=== PATIENT | female | born 1990 | race Caucasian/White ===

== ENCOUNTER 2020-10-03 14:45 | Emergency (ER) | payer OTHER, SELFPAY ==
--- NOTE | ~2020-10-03 | XR_ITS ---
EXAMINATION: XR chest 1V portable DATE: 10/03/2020 15:30 INDICATION: Fever, shortness of breath, body aches and headache TECHNIQUE: One view COMPARISON: Chest radiograph dated 03/19/2017 FINDINGS: Unchanged minimal biapical pleural-parenchymal scarring. The lungs remain otherwise clear with no foc al airspace opacities, pulmonary edema, pleural effusion or pneumothorax. The cardiomediastinal silho uette is normal. Visualized bones and soft tissues are unremarkable. IMPRESSION: 1. No acute cardiopulmonary disease. Reviewed, dictated and finalized at location H. ETING COMMUNICATIONS SPECIALIST
[2020-10-03 14:52] VITALS: BP 94/66; PULSE 102; RESP 18; TEMP 36.3; O2SAT 100
[2020-10-03] MEDS: ONDANSETRON INJ 4 MG/2 ML VIAL IV PUSH (15:27)
[2020-10-03] MEDS: SODIUM CHLORIDE 0.9% IV 1,000 ML 999 ML IV CONT (15:27)
--- NOTE | 2020-10-03 15:41 | ED.FEVER ---
HPI - Fever General Chief Complaint: Fever Stated Complaint: Fever, vomiting, REN, body aches Time Seen by Provider: 10/03/20 14:51 History of Present Illness HPI Narrative: Patient is a 29-year-old female with history of HIV who is viral load is undetectable that presents to the ER with fever. Reports over the last week she has had some runny nose over the last 3 days she has developed fever. As high as 100.9 ?F. Mild cough but no shortness of breath. She has had some nausea as well as some diarrhea. No known sick contacts. No chest pain or chest pressure. No positional dizziness. Reports compliance with his home medications. Related Data Allergies Allergy/AdvReac Type Severity Reaction Status Date / Time oxycodone Allergy Intermediate HIVES/RASH/ Verified 10/03/20 14:55 ITCHY Review of Systems Review of Systems: All systems reviewed & are unremarkable except as noted in HPI and below Constitutional: Constitutional: Reports chills, Reports fatigue and Reports fever(s) ENT: Reports nasal congestion and Denies sore throat Cardiovascular: Cardiovascular: Denies chest pain, Denies rapid heart rate and Denies radiating jaw, neck or arm pain Respiratory: Respiratory: Reports cough, Denies dyspnea and Denies wheezing Gastrointestinal: Gastrointestinal: Denies abdominal pain, Denies constipation, Reports diarrhea, Reports nausea and Reports vomiting Genitourinary: Genitourinary: Denies nocturia and Denies dysuria PMF Past Medical History Medical History (Updated 10/03/20 @ 16:48 by Yuri Romo MD) Ectopic HIV (human immunodeficiency virus infection) Surgical History Surgical History (Updated 10/03/20 @ 15:46 by Yuri Romo MD) H/O tubal ligation Social History Social History (Updated 10/03/20 @ 15:46 by Yuri Romo MD) Smoking status: Current every day smoker Gender identity (if verbalized by the patient): Female Exam Narrative: Exam Narrative: GENERAL: Well-appearing, underweight, and in no acute distress. HEAD: Normocephalic, atraumatic. CHEST: Clear to auscultation. No respiratory distress. HEART: Tachycardic and regular. Normal peripheral pulses. ABDOMEN: Soft, nontender, nondistended. EXTREMITIES: Normal range of motion. No edema. SKIN: Warm, dry, no rash. NEURO: Alert and oriented x3. PSYCH: Normal mood and affect. Course CROP SUPERVISOR/PA Physician Supervision Unremarkable evaluation. We will Covid swab to assess for fever. Vital Signs Vital signs: Vital Signs Temperature 97.3 F L 10/03/20 14:52 Pulse Rate 102 H 10/03/20 14:52 Respiratory Rate 18 10/03/20 14:52 Blood Pressure 94/66 L 10/03/20 14:52 Pulse Oximetry 100 10/03/20 14:52 Temperature 97.3 F L 10/03/20 14:52 Pulse Rate 102 H 10/03/20 14:52 Respiratory Rate 18 10/03/20 14:52 Blood Pressure 94/66 L 10/03/20 14:52 Pulse Oximetry 100 10/03/20 14:52 MDM - Fever Lab Data Result diagrams: 10/03/20 15:34 10/03/20 15:34 Labs: Lab Results 10/03/20 10/03/20 10/03/20 Range/Units 15:34 15:34 15:34 WBC 8.4 (4.5-10.0) K/mm3 RBC 3.69 L (4.2-5.4) M/mm3 Hgb 12.2 (12.0-15.0) g/dL Hct 35.2 L (37.0-47.0) % MCV 95.4 (80-100) fl MCH 33.1 (26-34) pg MCHC 34.7 (32-36) g/dl RDW 12.4 (11.5-14.5) % Plt Count 283 (150-375) k/mm3 MPV 9.0 (7.4-10.4) fl Immature Gran % (Auto) 0.2 (0-0.5) % Neut % (Auto) 66.1 (45.5-73.1) % Lymph % (Auto) 26.1 (18.3-44.2) % [place] % (Auto) 5.8 (2.6-8.5) % Eos % (Auto) 1.4 (0-4.4) % Baso % (Auto) 0.4 (0.2-1.2) % Lymph # (Auto) 2.19 (0.9-3.2) K/mm3 [place] # (Auto) 0.5 (0.1-0.6) K/mm3 Eos # (Auto) 0.1 (0-0.3) K/mm3 Baso # (Auto) 0.0 (0.0-0.1) K/mm3 Abs Immat Gran (auto) 0.02 (0.00-0.031) K/mm3 Absolute Neuts (auto) 5.5 (1.3-6.7) K/mm3 Absolute Nucleated RBC 0.0 (0.0-0.012) K/mm3 Nucleated RBC % 0.0 (0.0-0.2)
[2020-10-03 15:43] LABS: Basophils Percent Auto 0.4 % (0.2-1.2); Eosinophils Absolute Auto 0.1 K/mm3 (0-0.3); Eosinophils Percent Auto 1.4 % (0-4.4); Hematocrit 35.2 % (37.0-47.0); Hemoglobin 12.2 g/dL (12.0-15.0); Immature Granulocyte Absolute 0.02 K/mm3 (0.00-0.031); Immature Granulocyte Percent A 0.2 % (0-0.5); Lymphocytes Absolute Auto 2.19 K/mm3 (0.9-3.2); Lymphocytes Percent Auto 26.1 % (18.3-44.2); Mean Corpuscular HGB Conc 34.7 g/dl (32-36); Mean Corpuscular Hemoglobin 33.1 pg (26-34); Mean Corpuscular Volume 95.4 fl (80-100); Monocytes Absolute Auto 0.5 K/mm3 (0.1-0.6); Monocytes Percent Auto 5.8 % (2.6-8.5); Neutrophils Absolute Auto 5.5 K/mm3 (1.3-6.7); Neutrophils Percent Auto 66.1 % (45.5-73.1); Platelet Count Result 283 k/mm3 (150-375); Red Blood Count 3.69 M/mm3 (4.2-5.4); Red Cell Distribution Width 12.4 % (11.5-14.5); White Blood Count 8.4 K/mm3 (4.5-10.0)
[2020-10-03 15:58] LABS: Alanine Aminotransferase 22 U/L (4-35); Albumin Level 4.1 g/dL (3.5-5.1); Alkaline Phosphatase 92 U/L (38-126); Anion Gap 11 mmol/L (8-16); Aspartate Amino Transferase 23 U/L (14-36); Bilirubin,Total 0.5 mg/dL (0.2-1.3); Blood Urea Nitrogen 7 mg/dL (7-17); Carbon Dioxide 18 mmol/L (22-30); Chloride 109 mmol/L (98-107); Estimated CRCL calculation 83 ml/min; Estimated Glomerular Filt Rate > 60; Glucose 104 mg/dL (65-105); Sodium 138 mmol/L (137-145)
[2020-10-03 16:02] LABS: D Dimer 0.27 ug/mL (<0.48)
[2020-10-03 16:03] LABS: Potassium 3.5 mmol/L (3.4-5.0)
--- NOTE | 2020-10-03 16:03 | PC.NURSE ---
patient resting on stretcher. all tests resulted. waiting for further orders from MD vs disposition.
[2020-10-03 16:25] LABS: CRP < 0.5 mg/dL (<1.0)
[2020-10-03 16:57] VITALS: BP 91/49; PULSE 65; RESP 18; TEMP 36.4; O2SAT 100
[2020-10-05 17:05] LABS: SARS-CoV-2 RNA PCR Negative
== END 2020-10-03 16:59 | disposition home or self-care (01) ==
PROVIDERS: Emergency Provider Emergency Medicine; PCP Physician Assistant
DX: B34.9 Viral infection, unspecified (principal); Z20.828 Contact with and (suspected) exposure to other viral communicable diseases; Z21 Asymptomatic human immunodeficiency virus [HIV] infection status; F17.200 Nicotine dependence, unspecified, uncomplicated
CPT/HCPCS: 36415; 71045; 80053; 85025; 85380; 86140; 87635; 96361; 96374; 99284; C9803; J2405; J7030; U0003

== ENCOUNTER 2020-10-07 14:25 | Emergency (ER) | payer OTHER, SELFPAY ==
--- NOTE | ~2020-10-07 | XR_ITS ---
EXAMINATION: XR chest 1V portable DATE: 10/07/2020 15:43 INDICATION: Shortness of breath. TECHNIQUE: A single frontal view of the chest was obtained. COMPARISON: Chest single view 10/03/2020 FINDINGS: There is mild scarring at the lung apices. No pleural effusion or pneumothorax. The heart s ize is normal. IMPRESSION: 1. Mild scarring at the lung apices. Reviewed, dictated and finalized at location A. NESS NURSE
[2020-10-07 14:39] VITALS: BP 94/64; PULSE 69; RESP 18; TEMP 37.1; O2SAT 99
--- NOTE | 2020-10-07 15:18 | ED.URI ---
HPI - URI/Sore Throat General Chief Complaint: Upper Respiratory Infection Stated Complaint: covid with difficulty breathing Time Seen by Provider: 10/07/20 15:03 History of Present Illness HPI Narrative: 29 yo female w/ h/o HIV presents to the ED for SOB. She reports that she has had all of the symptoms of COVID-19 for the past week. She has had pleuritic chest pain, SOB, fever, and nausea. She was seen here 4 days ago and had completely negative work-up including negative COVID test. Last HIV labs were undetectable and she has been taking all of he medications. Related Data Home Medications Medication Instructions Recorded Confirmed lleotonivt-eqohrygteqmix-rlzh tablet 10/07/20 cyclobenzaprine mg 10/07/20 darunavir ethanolate [Prezista] mg 10/07/20 emtricitabine-tenofovir (TDF) tablet 10/07/20 [Truvada] fluoxetine mg 10/07/20 ibuprofen 10/07/20 ritonavir PO 10/07/20 topiramate [Topamax] 25 mg PO DAILY 10/07/20 tramadol mg 10/07/20 Allergies Allergy/AdvReac Type Severity Reaction Status Date / Time oxycodone Allergy Intermediate HIVES/RASH/ Verified 10/07/20 14:42 ITCHY Review of Systems Review of Systems: All systems reviewed & are unremarkable except as noted in HPI and below Constitutional: Constitutional: Reports fatigue, Reports fever(s) and Reports weakness Cardiovascular: Cardiovascular: Reports chest pain Respiratory: Respiratory: Reports cough and Reports dyspnea Gastrointestinal: Gastrointestinal: Reports nausea Genitourinary: Genitourinary: Denies hematuria and Denies dysuria Neurologic: Reports dizziness and Reports weakness PMFSH Past Medical History Medical History Ectopic HIV (human immunodeficiency virus infection) Surgical History Surgical History H/O tubal ligation Social History Social History Smoking status: Current every day smoker Gender identity (if verbalized by the patient): Female Exam Const: General: alert and ill appearing chronically Nutritional Appearance: thin Orientation/consciousness: patient oriented x3 HENMT: Mouth: Yes dry mucous membranes Eyes: Pupils: Equal, round and reactive pupils present Chest: Chest palpation & inspection: normal inspection of the chest Resp: Effort & Inspection: normal respiratory effort Auscultation: clear to auscultation bilaterally Cardio: Rate: regular rate Rhythm: regular rhythm GI: GI Palp: Yes Soft to palpation and No Tenderness to palpation present (GI) Skin: General skin exam: normal color Neuro: General: patient oriented x3, moves all extremities and no focal motor deficits Speech: normal speech Extrem: General: normal to inspection Psych: Affect: Anxious affect present Course Vital Signs Vital signs: Vital Signs Temperature 37.1 C 10/07/20 14:39 Pulse Rate 69 10/07/20 14:39 Respiratory Rate 18 10/07/20 14:39 Blood Pressure 94/64 L 10/07/20 14:39 Pulse Oximetry 99 10/07/20 14:39 Temperature 37.1 C 10/07/20 14:39 Pulse Rate 63 10/07/20 15:59 Respiratory Rate 17 10/07/20 15:59 Blood Pressure 91/64 L 10/07/20 15:59 Pulse Oximetry 100 10/07/20 15:59 MDM - URI/Sore Throat MDM Narrative Medical decision making narrative: She is very thin and appears mildly dehydrated. Lungs are clear and x-ray is negative. I will try PO medications and oral hydration. BP is mildly low. It sounds like this is not out of the ordinary for her and she has n symptoms related to it. Medical Records Attestation: I reviewed the patient's medical records. Imaging Data Radiologist's impression: ITS Impressions Chest X-Ray 10/07/20 15:44 IMPRESSION: 1. Mild scarring at the lung apices. Discharge Plan Discharge Clinical Impression: Upper respiratory infection
[2020-10-07] MEDS: ONDANSETRON HCL ODT 4 MG TABLET PO (15:33)
[2020-10-07] MEDS: KETOROLAC (*BKC) 60 MG/2 ML VIAL IM (15:33)
[2020-10-07 15:59] VITALS: BP 91/64; PULSE 63; RESP 17; O2SAT 100
== END 2020-10-07 17:14 | disposition home or self-care (01) ==
PROVIDERS: Emergency Provider Emergency Medicine; PCP Physician Assistant
DX: J06.9 Acute upper respiratory infection, unspecified (principal); Z21 Asymptomatic human immunodeficiency virus [HIV] infection status; F17.200 Nicotine dependence, unspecified, uncomplicated
CPT/HCPCS: 71045; 96372; 99283; A9270; J1885

== ENCOUNTER 2021-04-23 12:02 | Emergency (ER) | payer OTHER, SELFPAY ==
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
[2021-04-23 12:09] VITALS: BP 104/70; PULSE 77; RESP 18; TEMP 36.8; O2SAT 100
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
[2021-04-23] MEDS: KETOROLAC (*BKC) 60 MG/2 ML VIAL 30 MG IM (13:25)
[2021-04-23 13:56] LABS: Add Urine Microscopic? YES; Appearance Urine Clear (Clear); Bilirubin Urine Negative (Negative); Blood Urine Negative (Negative); Color Urine Yellow (Yellow); Glucose Urine UA Negative (Negative); Ketones Urine Negative (Negative); Leukocyte Esterase Ur Negative LEU/UL (Negative); Nitrate Urine Positive (Negative); Protein Urine Negative (Negative); Specific Grav Ur 1.005 (1.001-1.035); Squamous Epithelial Cell Urine Few /hpf (Few); Urobilinogen Urine Negative mg/dL (<2.0); WBC Urine 0-3 /hpf
[2021-04-23 14:29] VITALS: BP 106/63; PULSE 74; RESP 15; O2SAT 100
== END 2021-04-23 14:30 | disposition home or self-care (01) ==
PROVIDERS: Emergency Provider Emergency Medicine
DX: S39.92XA Unspecified injury of lower back, initial encounter (principal); N39.0 Urinary tract infection, site not specified; Y04.0XXA Assault by unarmed brawl or fight, initial encounter
CPT/HCPCS: 72100; 72220; 81001; 96372; 99283; J1885

== ENCOUNTER 2021-11-20 18:27 | Emergency (ER) | payer OTHER, SELFPAY ==
[2021-11-20 18:29] VITALS: BP 111/64; PULSE 104; RESP 20; TEMP 36.6; O2SAT 100
[2021-11-20 19:31] VITALS: BP 112/70; PULSE 106; RESP 18; O2SAT 99
--- NOTE | 2021-11-20 20:13 | ED.GENADULT ---
HPI - General Adult General Chief complaint: Shortness of Breath/Dyspnea Stated complaint: sob, fever Time Seen by Provider: 11/20/21 20:04 Source: patient Mode of arrival: ambulatory Limitations: no limitations History of Present Illness HPI narrative: Patient is a 31-year-old female who presents to emergency department for evaluation flu symptoms that began today she has had 1 COVID-vaccine she denies any vomiting or diarrhea presents nondistressed nose fever chills congestion rhinorrhea cough some loose stools denies vomiting. Notes sick contact with COVID-19 exposure Related Data Home Medications Medication Instructions Recorded Confirmed lhupsrvmhu-mkbjvkngzkfmz-avfx tablet 10/07/20 cyclobenzaprine mg 10/07/20 darunavir ethanolate [Prezista] mg 10/07/20 emtricitabine-tenofovir (TDF) tablet 10/07/20 [Truvada] fluoxetine mg 10/07/20 ibuprofen 10/07/20 ritonavir PO 10/07/20 topiramate [Topamax] 25 mg PO DAILY 10/07/20 tramadol mg 10/07/20 Allergies Allergy/AdvReac Type Severity Reaction Status Date / Time oxycodone Allergy Intermediate HIVES/RASH/ Verified 04/23/21 12:16 ITCHY Review of Systems Review of Systems: All systems reviewed & are unremarkable except as noted in HPI and below PMFSH Past Medical History Medical History Ectopic HIV (human immunodeficiency virus infection) Surgical History Surgical History H/O tubal ligation Social History Social History Smoking status: Current every day smoker Gender identity (if verbalized by the patient): Female Exam Narrative: GENERAL: Well-appearing, well-nourished, and in no acute distress. HEAD: Normocephalic, atraumatic. EYES: PERRLA and EOMI. ENT: Nares clear, no rhinorrhea or epistaxis. Mucous membranes moist. CHEST: Clear to auscultation. No respiratory distress. No wheezes rales or rhonchi HEART: Regular rate and rhythm. No murmur heard. EXTREMITIES: Normal range of motion. No edema. SKIN: Warm, dry, no rash. NEURO: No focal deficits. Alert and oriented x3. PSYCH: Normal mood and affect. Course Course Emergency Course: Patient presents nondistressed of likely COVID-19 diagnosis given exposures will be tested discharged home provided with outpatient follow-up afebrile nontoxic-appearing nondistressed no emesis ABCs and vital signs intact stable no hypoxemia no pneumonia did on exam Vital Signs Vital signs: Vital Signs Temperature 97.9 F 11/20/21 18:29 Pulse Rate 104 H 11/20/21 18:29 Respiratory Rate 20 11/20/21 18:29 Blood Pressure 111/64 11/20/21 18:29 Pulse Oximetry 100 11/20/21 18:29 Temperature 97.9 F 11/20/21 18:29 Pulse Rate 106 H 11/20/21 19:31 Respiratory Rate 18 11/20/21 19:31 Blood Pressure 112/70 11/20/21 19:31 Pulse Oximetry 99 11/20/21 19:31 Medical Decision Making MDM Narrative Medical decision making narrative: Patient with likely COVID-19 diagnosis given the exposure she will be tested for COVID-19 and influenza discharged home with outpatient follow-up given indications for return Vital Signs Vital Signs: Vital Signs Temperature 97.9 F 11/20/21 18:29 Pulse Rate 104 H 11/20/21 18:29 Respiratory Rate 20 11/20/21 18:29 Blood Pressure 111/64 11/20/21 18:29 Pulse Oximetry 100 11/20/21 18:29 Temperature 97.9 F 11/20/21 18:29 Pulse Rate 106 H 11/20/21 19:31 Respiratory Rate 18 11/20/21 19:31 Blood Pressure 112/70 11/20/21 19:31 Pulse Oximetry 99 11/20/21 19:31 Discharge Plan Discharge Clinical Impression: Person under investigation for COVID-19 Patient Disposition: Home, Self-Care Condition: Stable Instructions: Antibiotic Form, COVID-19 (Coronavirus Disease 2019) (ED) Additional Instructions: Follow-up with primary care tomorrow t
[2021-11-20 20:45] VITALS: BP 122/66; PULSE 78; RESP 18; O2SAT 99
[2021-11-21 20:41] LABS: SARS-CoV-2 RNA PCR Positive
== END 2021-11-20 20:47 | disposition home or self-care (01) ==
PROVIDERS: Emergency Medicine Emergency Medical Services; Emergency Provider Emergency Medicine; PCP Physician Assistant
DX: U07.1 COVID-19 (principal); F17.210 Nicotine dependence, cigarettes, uncomplicated; Z21 Asymptomatic human immunodeficiency virus [HIV] infection status
CPT/HCPCS: 87804; 99283; C9803; U0003; U0005

== ENCOUNTER 2022-04-03 23:46 | Emergency (ER) | payer OTHER, SELFPAY ==
--- NOTE | ~2022-04-03 | XR_ITS ---
EXAMINATION: XR shoulder RT min 2V DATE: 04/04/2022 01:10 INDICATION: Right shoulder pain. TECHNIQUE: 4 views of right shoulder were obtained. COMPARISON: None. FINDINGS: Bone alignment is normal. No fracture. Joint spaces are well maintained. IMPRESSION: 1. Normal right shoulder. Reviewed, dictated and finalized at location A. IMPRESSION: 1. Normal right shoulder.
[2022-04-03 23:46] VITALS: BP 121/76; PULSE 62; RESP 18; TEMP 35.7; O2SAT 100
[2022-04-04] VITALS (21 sets, daily range): BP systolic 96–117; BP diastolic 69–83; PULSE 71–72; RESP 16–18; O2SAT 96–100
--- NOTE | 2022-04-04 00:41 | ED.UPPEXIN ---
HPI - Extremity Injury (Upper) General Chief Complaint: Extremity Injury, Upper Stated Complaint: right shoulder pain Time Seen by Provider: 04/03/22 23:53 Source: patient Mode of arrival: ambulatory Limitations: no limitations History of Present Illness HPI narrative: This is a 31 year old female that presents to the ER for acute on chronic right shoulder pain present today. Reports she felt a pop in the shoulder and the pain has worsened. No certain injury or trauma. Reports she currently is seeing an pathology specialist for her shoulder and has done therapy. Denies decreased ROM or numbness. Related Data Home Medications Medication Instructions Recorded Confirmed cqsopuypgt-jgwbglaodtziz-njrmxxhg tablet 10/07/20 50 mg-325 mg-40 mg tablet cyclobenzaprine 5 mg tablet mg 10/07/20 darunavir ethanolate 800 mg tablet mg 10/07/20 (Prezista) emtricitabine 200 mg-tenofovir tablet 10/07/20 disoproxil fumarate 300 mg tablet (Truvada) fluoxetine 40 mg capsule mg 10/07/20 ibuprofen 800 mg tablet 10/07/20 ritonavir 100 mg tablet PO 10/07/20 topiramate 25 mg sprinkle capsule 25 mg PO DAILY 10/07/20 (Topamax) tramadol 50 mg tablet mg 10/07/20 Allergies Allergy/AdvReac Type Severity Reaction Status Date / Time oxycodone Allergy Intermediate HIVES/RASH/ Verified 04/23/21 12:16 ITCHY Review of Systems Review of Systems: CONSTITUTIONAL: Denies fever MUSCULOSKELETAL: Reports joint pain, and myalgia. NEUROLOGIC: Denies numbness All systems reviewed & are unremarkable except as noted in HPI and below PMFSH Past Medical History Medical History Ectopic HIV (human immunodeficiency virus infection) Surgical History Surgical History H/O tubal ligation Social History Social History Smoking status: Current every day smoker Gender identity (if verbalized by the patient): Female Exam Narrative: GENERAL: Well-appearing, well-nourished, and in no acute distress. HEAD: Normocephalic, atraumatic. EYES: EOMI. CHEST: No respiratory distress. HEART: Regular rate EXTREMITIES: Normal range of motion. No edema, erythema or obvious deformity. Normal radial pulse. Normal sensation SKIN: Warm, dry, no rash. NEURO: No focal deficits. Alert and oriented x3. PSYCH: Normal mood and affect Course Vital Signs Vital signs: Vital Signs Temperature 96.2 F L 04/03/22 23:46 Pulse Rate 62 04/03/22 23:46 Respiratory Rate 18 04/03/22 23:46 Blood Pressure 121/76 04/03/22 23:46 Pulse Oximetry 100 04/03/22 23:46 Oxygen Delivery Room Air 04/03/22 23:46 Temperature 96.2 F L 04/03/22 23:46 Pulse Rate 71 04/04/22 01:00 Respiratory Rate 18 04/04/22 01:00 Blood Pressure 109/74 04/04/22 01:00 Pulse Oximetry 100 04/04/22 01:00 Oxygen Delivery Room Air 04/03/22 23:46 MDM - Extremity Injury (Upper) Imaging Data Radiologist's impression: Right shoulder x-ray: No acute fracture or dislocations Critical Care Time Critical Care Time Critical Care Time: No Discharge Plan Discharge Clinical Impression: Chronic pain in right shoulder Patient Disposition: Home, Self-Care Condition: Stable Instructions: Shoulder Pain (ED) Additional Instructions: Return to the emergency department if you experience fever, redness and swelling of your arm, numbness, or any other symptoms that are concerning to you Rest. Ice to the area. Jllq-ktx-xhisbsu pain medication as needed. Prescribed pain medication as needed Follow-up with your orthopedic doctor Prescriptions: No Action fluoxetine 40 mg capsule ibuprofen 800 mg tablet tramadol 50 mg tablet fkutavbptp-dbilipjnnbctd-fbql 50-325-40 mg tablet topiramate [Topamax] 25 mg Capsule, Sprinkle
[2022-04-04] MEDS: diazePAM INJ (*CRX) 10 MG/2 ML SYRINGE 5 MG IM (01:05)
[2022-04-04] MEDS: ACETAMINOPHEN 500 MG TABLET 1000 MG PO (01:05)
[2022-04-04] MEDS: traMADol HCL (*CRX) 50 MG TABLET PO (02:14)
== END 2022-04-04 03:50 | disposition home or self-care (01) ==
PROVIDERS: Emergency Provider Emergency Medicine; PCP Physician Assistant
DX: M25.511 Pain in right shoulder (principal); G89.29 Other chronic pain; Z21 Asymptomatic human immunodeficiency virus [HIV] infection status; F17.200 Nicotine dependence, unspecified, uncomplicated
CPT/HCPCS: 73030; 96372; 99283; A4565; A9270; J3360

== ENCOUNTER 2022-05-14 16:48 | Emergency (ER) | payer OTHER, SELFPAY ==
--- NOTE | ~2022-05-14 | XR_ITS ---
EXAMINATION: XR chest 1V portable INDICATION: Cough TECHNIQUE: Portable AP chest at 1712 hours COMPARISON: 10/07/2020 FINDINGS: The lungs are free of acute opacities. No pleural effusion or pneumothorax. The cardiomedia stinal silhouette is normal. The visualized bones and soft tissues are unremarkable. IMPRESSION: 1. No acute cardiopulmonary abnormality. Reviewed, dictated and finalized at location B.
[2022-05-14 16:52] VITALS: BP 111/75; PULSE 92; RESP 20; TEMP 37.1; O2SAT 99
--- NOTE | 2022-05-14 17:05 | ED.UPPEXIN ---
HPI - Extremity Injury (Upper) General Chief Complaint: Upper Respiratory Infection Stated Complaint: cough, headache, chills History of Present Illness HPI narrative: 31-year-old female presented the emergency room for evaluation of I am not feeling well . Patient is complaining of body aches, subjective fever, postnasal drip, sinus congestion and a nonproductive cough. Patient states symptoms suddenly started on yesterday. Related Data Home Medications Medication Instructions Recorded Confirmed ootzpmeeyc-kszydraklwxwy-tcenrdph tablet 10/07/20 50 mg-325 mg-40 mg tablet cyclobenzaprine 5 mg tablet mg 10/07/20 darunavir ethanolate 800 mg tablet mg 10/07/20 (Prezista) emtricitabine 200 mg-tenofovir tablet 10/07/20 disoproxil fumarate 300 mg tablet (Truvada) fluoxetine 40 mg capsule mg 10/07/20 ibuprofen 800 mg tablet 10/07/20 ritonavir 100 mg tablet PO 10/07/20 topiramate 25 mg sprinkle capsule 25 mg PO DAILY 10/07/20 (Topamax) tramadol 50 mg tablet mg 10/07/20 Allergies Allergy/AdvReac Type Severity Reaction Status Date / Time oxycodone Allergy Intermediate HIVES/RASH/ Verified 04/23/21 12:16 ITCHY Review of Systems Review of Systems: CONSTITUTIONAL: Denies fever, chills, or sweats. EYES: Denies visual changes, redness, or discharge. ENT: Reports rhinorrhea, congestion, sore throat, or otalgia. CARDIOVASCULAR: Denies chest pain, palpitations, or edema. RESPIRATORY: Reports cough GASTROINTESTINAL: Denies abdominal pain, nausea, vomiting, or diarrhea. GENITOURINARY: Denies dysuria or hematuria. SKIN: Denies rash or itching. MUSCULOSKELETAL: Denies back pain, joint pain, or myalgia. NEUROLOGIC: Denies headache, numbness, dizziness, or weakness. PSYCHIATRIC: Denies anxiety or depression. COUNT INCLUDES THE [facility] Past Medical History Medical History Ectopic HIV (human immunodeficiency virus infection) Surgical History Surgical History H/O tubal ligation Social History Social History (Reviewed 05/14/22 @ 17:07 by TEX Almodovar Smoking status: Current every day smoker Gender identity (if verbalized by the patient): Female Exam Narrative: GENERAL: Well-appearing, well-nourished, no physical limitations, and in no acute distress. HEAD: Normocephalic, atraumatic. EYES: Conjunctivae normal, PERRLA and EOMI. ENT: External nose normal, Nares clear, no rhinorrhea or epistaxis. Mucous membranes moist. Oropharynx without tonsillar hypertrophy exudate or other lesions. External ears normal, bilateral TMs normal bilaterally NECK: Supple. No adenopathy or masses. CHEST: Clear to auscultation. No respiratory distress. No wheezes rales or rhonchi. No tenderness. HEART: Regular rate and rhythm. No murmur heard. Normal peripheral pulses. EXTREMITIES: Normal range of motion. No edema. No clubbing or cyanosis SKIN: Warm, dry, no rash. No noted wounds NEURO: No focal deficits. Alert and oriented x3. MAEW. CN's II-XI intact bilaterally, normal gait PSYCH: Cooperative. Normal mood and affect. Course Vital Signs Vital signs: Vital Signs Temperature 37.1 C 05/14/22 16:52 Pulse Rate 92 05/14/22 16:52 Respiratory Rate 20 05/14/22 16:52 Blood Pressure 111/75 05/14/22 16:52 Pulse Oximetry 99 05/14/22 16:52 Temperature 37.1 C 05/14/22 16:52 Pulse Rate 92 05/14/22 16:52 Respiratory Rate 18 05/14/22 18:41 Blood Pressure 111/75 05/14/22 16:52 Pulse Oximetry 98 05/14/22 18:41 Oxygen Delivery Room Air 05/14/22 17:02 MDM - Extremity Injury (Upper) Lab Data Labs: Lab Results 05/14/22 Range/Units 17:06 SARS-CoV-2 RNA (RT-PCR) Positive A Discharge Plan Discharge Clinical Impression: Upper respiratory infection, Viral infection, COVID Patient Disposition: Home, Self-Care Condition: Stable Instructions:
[2022-05-14 17:48] LABS: SARS-CoV-2 RNA PCR Positive
[2022-05-14 18:41] VITALS: RESP 18; O2SAT 98
== END 2022-05-14 18:42 | disposition home or self-care (01) ==
PROVIDERS: Emergency Provider Nurse Practitioner Family; PCP Physician Assistant
DX: U07.1 COVID-19 (principal); J06.9 Acute upper respiratory infection, unspecified; Z21 Asymptomatic human immunodeficiency virus [HIV] infection status
CPT/HCPCS: 71045; 99283; C9803; U0003; U0005

== ENCOUNTER 2022-06-30 19:52 | Emergency (ER) | payer OTHER, SELFPAY ==
[2022-06-30] VITALS (11 sets, daily range): BP systolic 98–125; BP diastolic 64–84; PULSE 71–86; RESP 16–18; TEMP 36.2; O2SAT 98–100
--- NOTE | ~2022-06-30 | CT_ITS ---
EXAMINATION: CT abdomen pelvis wo con DATE: 06/30/2022 20:57 INDICATION: flank pain TECHNIQUE: Computed tomography (CT) of the abdomen and pelvis was performed without intravenous contr ast. Automated exposure control and iterative reconstruction technique were employed. The dose-length product was 273.32 mGy-cm. COMPARISON: None. FINDINGS: Lower thorax: Unremarkable Liver: Normal. Biliary/Gallbladder: Gallbladder is normal. No bile duct dilation. Pancreas: No mass or duct dilation. Spleen: Normal. Adrenals:No mass. Kidneys: No mass, stone, or hydronephrosis. GI tract: No small or large bowel dilation. Not visualized Mesentery/Peritoneum: No ascites, mass, or free air. Retroperitoneum: No mass. Pelvis: Pelvic organs are within normal limits. Soft Tissues: Soft tissues and body wall unremarkable. Bones: No acute osseous finding. IMPRESSION: No acute abdominopelvic process detected. Reviewed, dictated and finalized at location K.
[2022-06-30 20:23] LABS: Basophils Percent Auto 0.5 % (0.2-1.2); Eosinophils Absolute Auto 0.6 K/mm3 (0-0.3); Eosinophils Percent Auto 6.6 % (0-4.4); Hemoglobin 14.7 g/dL (12.0-15.0); Immature Granulocyte Absolute 0.02 K/mm3 (0.00-0.031); Immature Granulocyte Percent A 0.2 % (0-0.5); Lymphocytes Absolute Auto 2.57 K/mm3 (0.9-3.2); Lymphocytes Percent Auto 29.2 % (18.3-44.2); Mean Corpuscular Hemoglobin 33.3 pg (26-34); Mean Platelet Volume 8.9 fl (7.4-10.4); Monocytes Absolute Auto 0.6 K/mm3 (0.1-0.6); Monocytes Percent Auto 6.9 % (2.6-8.5); Neutrophils Percent Auto 56.6 % (45.5-73.1); Platelet Count Result 322 k/mm3 (150-375); Red Blood Count 4.42 M/mm3 (4.2-5.4); White Blood Count 8.8 K/mm3 (4.5-10.0)
[2022-06-30 20:29] LABS: Appearance Urine Slightly Cloudy (Clear); Bilirubin Urine Negative (Negative); Color Urine Yellow (Yellow); Glucose Urine UA Negative (Negative); Ketones Urine Trace mg/dL (Negative); Leukocyte Esterase Ur Trace LEU/UL (Negative); Nitrate Urine Negative (Negative); Protein Urine Negative (Negative); Urobilinogen Urine 0.2 mg/dL (<2.0)
[2022-06-30 20:33] LABS: Alanine Aminotransferase 21 U/L (6-35); Albumin Level 4.6 g/dL (3.5-5.1); Alkaline Phosphatase 85 U/L (38-126); Anion Gap 10 mmol/L (8-16); Aspartate Amino Transferase 24 U/L (14-36); Bilirubin,Total 0.2 mg/dL (0.2-1.3); Blood Urea Nitrogen 11 mg/dL (7-17); Calcium 8.8 mg/dL (8.4-10.2); Carbon Dioxide 26 mmol/L (22-30); Chloride 105 mmol/L (98-107); Estimated CRCL calculation 100 ml/min; Estimated Glomerular Filt Rate > 60; Glucose 103 mg/dL (65-110); Potassium 4.2 mmol/L (3.4-5.0); Sodium 141 mmol/L (137-145)
[2022-06-30 20:37] LABS: Add Urine Microscopic? YES; Blood Urine Trace-Intact (Negative)
[2022-06-30 20:40] LABS: Budding Yeast Urine Present /hpf; Mucus Urine Few /lpf; RBC Urine >75 /hpf (0-2); Squamous Epithelial Cell Urine Many /hpf (Few); WBC Urine 31-50 /hpf
--- NOTE | 2022-06-30 21:41 | ED.GENADULT ---
HPI - General Adult General Chief complaint: Abdominal Pain Stated complaint: bilateral flank pain Time Seen by Provider: 06/30/22 20:36 History of Present Illness HPI narrative: Patient is a 31-year-old female who presents ER with concerns for UTI or kidney infection. Reports her low back began to hurt last week but over the last 2 days she has had burning urination. No fevers or chills or sweats. Mild abdominal cramping down low. No diarrhea. Patient has history of HIV but reports she has had an undetectable viral load as well as normal CD4 counts. She is compliant with her medication. She is currently transitioning to a new infectious disease disease doctor because hers retired. Related Data Home Medications Medication Instructions Recorded Confirmed lzodsdsvhq-hradimxkkulbv-choosvwt tablet 10/07/20 50 mg-325 mg-40 mg tablet cyclobenzaprine 5 mg tablet mg 10/07/20 darunavir ethanolate 800 mg tablet mg 10/07/20 (Prezista) emtricitabine 200 mg-tenofovir tablet 10/07/20 disoproxil fumarate 300 mg tablet (Truvada) fluoxetine 40 mg capsule mg 10/07/20 ibuprofen 800 mg tablet 10/07/20 ritonavir 100 mg tablet PO 10/07/20 topiramate 25 mg sprinkle capsule 25 mg PO DAILY 10/07/20 (Topamax) tramadol 50 mg tablet mg 10/07/20 Allergies Allergy/AdvReac Type Severity Reaction Status Date / Time oxycodone Allergy Intermediate HIVES/RASH/ Verified 04/23/21 12:16 ITCHY Review of Systems Review of Systems: All systems reviewed & are unremarkable except as noted in HPI and below Constitutional: Constitutional: Denies chills and Denies fever(s) ENT: Denies nasal congestion and Denies sore throat Cardiovascular: Cardiovascular: Denies chest pain, Denies rapid heart rate and Denies radiating jaw, neck or arm pain Respiratory: Respiratory: Denies cough and Denies dyspnea Gastrointestinal: Gastrointestinal: Denies abdominal pain, Denies nausea and Denies vomiting Genitourinary: Genitourinary: Denies nocturia, Denies dysuria and Reports flank pain PMFSH Past Medical History Medical History (Updated 06/30/22 @ 21:47 by Yuri Romo MD) Ectopic HIV (human immunodeficiency virus infection) Surgical History Surgical History (Updated 06/30/22 @ 21:47 by Yuri Romo MD) H/O tubal ligation History of partial hysterectomy Social History Social History Smoking status: Current every day smoker Gender identity (if verbalized by the patient): Female Exam Narrative: GENERAL: Well-appearing, well-nourished, and in no acute distress. HEAD: Normocephalic, atraumatic. CHEST: Clear to auscultation. No respiratory distress. HEART: Regular rate and rhythm. Normal peripheral pulses. ABDOMEN: Soft, nontender, nondistended, normal active bowel sounds. EXTREMITIES: Normal range of motion. No edema. SKIN: Warm, dry, no rash. NEURO: Alert and oriented x3. PSYCH: Normal mood and affect. Course Course Emergency Course: Patient informed of results. Discharge home. Vital Signs Vital signs: Vital Signs Temperature 97.2 F L 06/30/22 20:02 Pulse Rate 71 06/30/22 20:02 Respiratory Rate 18 06/30/22 20:02 Blood Pressure 125/70 06/30/22 20:02 Pulse Oximetry 99 06/30/22 20:02 Oxygen Delivery Room Air 06/30/22 20:02 Temperature 97.2 F L 06/30/22 20:02 Pulse Rate 72 06/30/22 21:16 Respiratory Rate 16 06/30/22 21:16 Blood Pressure 105/66 06/30/22 21:16 Pulse Oximetry 99 06/30/22 21:16 Oxygen Delivery Room Air 06/30/22 20:02 Medical Decision Making Vital Signs Vital Signs: Vital Signs Temperature 97.2 F L 06/30/22 20:02 Pulse Rate 71 06/30/22 20:02 Respiratory Rate 18 06/30/22 20:02 Blood Pressure 125/70 06/30/22 20:02 Pulse Oximetry 99 06/30/22 20:02 Oxygen Delivery Room Air 06/30/22 20:02 Temperature 97.2 F L 06/30/22 20:02 Pulse Rate 72
== END 2022-06-30 21:52 | disposition home or self-care (01) ==
PROVIDERS: Emergency Provider Emergency Medicine; PCP Physician Assistant
DX: N39.0 Urinary tract infection, site not specified (principal); Z21 Asymptomatic human immunodeficiency virus [HIV] infection status
CPT/HCPCS: 36415; 74176; 80053; 81001; 81025; 85025; 87086; 87088; 99284

== ENCOUNTER 2023-02-13 20:06 | Emergency (ER) | payer OTHER, SELFPAY ==
[2023-02-13 20:18] VITALS: BP 110/75; PULSE 120; RESP 20; TEMP 36.4; O2SAT 100
[2023-02-13 20:49] LABS: Basophils Absolute Auto 0.1 K/mm3 (0.0-0.1); Basophils Percent Auto 0.6 % (0.2-1.2); Eosinophils Absolute Auto 0.5 K/mm3 (0-0.3); Eosinophils Percent Auto 5.4 % (0-4.4); Hematocrit 43.2 % (37.0-47.0); Hemoglobin 14.9 g/dL (12.0-15.0); Immature Granulocyte Absolute 0.02 K/mm3 (0.00-0.031); Immature Granulocyte Percent A 0.2 % (0-0.5); Lymphocytes Absolute Auto 3.13 K/mm3 (0.9-3.2); Lymphocytes Percent Auto 34.6 % (18.3-44.2); Mean Corpuscular HGB Conc 34.5 g/dl (32-36); Mean Corpuscular Volume 92.9 fl (80-100); Monocytes Absolute Auto 0.6 K/mm3 (0.1-0.6); Monocytes Percent Auto 6.4 % (2.6-8.5); Neutrophils Absolute Auto 4.8 K/mm3 (1.3-6.7); Neutrophils Percent Auto 52.8 % (45.5-73.1); Platelet Count Result 249 k/mm3 (150-375); Red Blood Count 4.65 M/mm3 (4.2-5.4); Red Cell Distribution Width 12.9 % (11.5-14.5); White Blood Count 9.1 K/mm3 (4.5-10.0)
[2023-02-13 21:01] LABS: Alanine Aminotransferase 23 U/L (6-35); Albumin Level 4.7 g/dL (3.5-5.1); Alkaline Phosphatase 81 U/L (38-126); Anion Gap 6 mmol/L (8-16); Aspartate Amino Transferase 22 U/L (14-36); Bilirubin,Total 0.4 mg/dL (0.2-1.3); Blood Urea Nitrogen 13 mg/dL (7-17); Calcium 9.2 mg/dL (8.4-10.2); Carbon Dioxide 28 mmol/L (22-30); Chloride 106 mmol/L (98-107); Estimated CRCL calculation 114 ml/min; Estimated Glomerular Filt Rate > 60; Glucose 88 mg/dL (65-110); Lipase 80 U/L (23-300); Sodium 140 mmol/L (137-145)
[2023-02-13 21:02] LABS: Appearance Urine Turbid (Clear); Bacteria Urine 4+ /hpf; Bilirubin Urine Negative (Negative); Blood Urine Negative (Negative); Color Urine Dark Yellow (Yellow); Glucose Urine UA Negative (Negative); Ketones Urine Negative (Negative); Leukocyte Esterase Ur Trace LEU/UL (Negative); Need Manual Microscopic Reviewed; Nitrate Urine Positive (Negative); Non Pathogenic Casts 0-2; Protein Urine Trace mg/dL (Negative); RBC Urine 0-2 /hpf (0-2); Specific Grav Ur 1.025 (1.001-1.035); Squamous Epithelial Cell Urine Many /hpf (Few)
[2023-02-13 21:04] LABS: Add Urine Microscopic? YES
[2023-02-13 22:08] VITALS: PULSE 74; RESP 10; O2SAT 100
--- NOTE | 2023-02-13 22:08 | ED.GENADULT ---
HPI - General Adult General Chief complaint: Abdominal Pain Stated complaint: abd pain Time Seen by Provider: 02/13/23 21:51 History of Present Illness HPI narrative: is a 32-year-old female with well-controlled HIV presenting ED with chief complaint of nausea vomiting and abdominal pain. Patient said that starting yesterday she started feeling crampy pain in the suprapubic area that is nonradiating, 9 out 10 intensity and constant. She has never experienced this before. It improved with a hot shower there are no alleviating factors. patient notes that her urine has been dark. She denies dysuria frequency or urgency. She has had multiple UTIs in the past. She denies fever, chills, chest pain difficulty breathing flank pain. Patient does not have a uterus. Related Data Home Medications Medication Instructions Recorded Confirmed bictegravir 50 mg-emtricitabine 1 tablet PO DAILY 10/28/22 200 mg-tenofovir alafenam 25 mg tablet (Biktarvy) hydrocodone 5 mg-acetaminophen 325 0.5 tablet PO BID 10/28/22 mg tablet Allergies Allergy/AdvReac Type Severity Reaction Status Date / Time oxycodone Allergy Intermediate HIVES/RASH/ Verified 10/28/22 12:49 ITCHY PMFSH Past Medical History Medical History Ectopic HIV (human immunodeficiency virus infection) Surgical History Surgical History H/O tubal ligation History of partial hysterectomy Social History Social History Smoking status: Current every day smoker Gender identity (if verbalized by the patient): Female Exam Narrative: APPEARANCE: No apparent distress. patient is pleasant polite during the interview Head: atraumatic. EYES: EOMI, NOSE: Atraumatic NECK: Trachea midline RESPIRATORY: No increased rate of breathing CARDIOVASCULAR: RRR, ABDOMINAL: patient reports minor tenderness in suprapubic area but I am unable to elicit a grimace on deep palpation of the abdomen. No guarding no rebound. No CVA tenderness. MUSCULOSKELETAl: No obvious deformities NEURO: Alert. Moving 4/4 extremities SKIN:: Warm, dry. Normal color PSYCHIATRIC: Normal affect Course Vital Signs Vital signs: Vital Signs Temperature 97.5 F L 02/13/23 20:18 Pulse Rate 120 H 02/13/23 20:18 Respiratory Rate 20 02/13/23 20:18 Blood Pressure 110/75 02/13/23 20:18 Pulse Oximetry 100 02/13/23 20:18 Oxygen Delivery Room Air 02/13/23 20:18 Temperature 97.5 F L 02/13/23 20:18 Pulse Rate 120 H 02/13/23 20:18 Respiratory Rate 20 02/13/23 20:18 Blood Pressure 110/75 02/13/23 20:18 Pulse Oximetry 100 02/13/23 20:18 Oxygen Delivery Room Air 02/13/23 20:18 Medical Decision Making MDM Narrative Medical decision making narrative: -Presentation: 32-year-old female with well-controlled HIV presenting to ED with suprapubic pain. 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 She lives with her fiance and 3 children. -External Chart Review: None -Hx from independent Sources: none -Discussion of Management/Consultants: none -Independent interpretation of studies: CBC was within normal limits. Metabolic panel was unremarkable. Urinalysis showed positive nitrites leuk esterase and 11-20 white blood cells which is consistent with infection. Dx tests considered but not ordered: CT abdomen pelvis- Abdominal exam is benign Appendicitis or diverticulitis unlikely no indication for scant this point. -Procedures: -Interventions: Keflex 500 mg, Motrin, [place]. phenazopyridine -Shared decision making / Disposition: 32-year-old female presenting with abdominal pain and signs o
[2023-02-13 22:10] VITALS: BP 113/79; PULSE 78; RESP 14; O2SAT 100
[2023-02-13 22:16] VITALS: BP 107/72; PULSE 75; RESP 18; O2SAT 99
[2023-02-13] MEDS: PHENAZOPYRIDINE HCL 100 MG TABLET 200 MG PO (22:16)
[2023-02-13] MEDS: CEPHALEXIN 500 MG CAPSULE PO (22:17)
[2023-02-13] MEDS: IBUPROFEN 400 MG TABLET 800 MG PO (22:21)
[2023-02-13] MEDS: HYDROcodone/acetaminophen (*CRX) 5-325 MG TABLET 1 TAB PO (22:22)
[2023-02-13 22:39] VITALS: BP 108/79; PULSE 72; RESP 18; O2SAT 100
== END 2023-02-13 22:40 | disposition home or self-care (01) ==
PROVIDERS: Emergency Provider Emergency Medicine; PCP Internal Medicine Gastroenterology
DX: N39.0 Urinary tract infection, site not specified (principal); Z21 Asymptomatic human immunodeficiency virus [HIV] infection status; Z79.899 Other long term (current) drug therapy; Z90.711 Acquired absence of uterus with remaining cervical stump; F17.200 Nicotine dependence, unspecified, uncomplicated
CPT/HCPCS: 36415; 80053; 81001; 81025; 83690; 85025; 87077; 87086; 87186; 99283; A9270

== ENCOUNTER 2023-03-18 16:37 | Emergency (ER) | payer OTHER, SELFPAY ==
[2023-03-18 16:40] VITALS: BP 111/78; PULSE 79; RESP 18; TEMP 36.7; O2SAT 100
--- NOTE | 2023-03-18 17:03 | ED.UPPEXIN ---
HPI - Extremity Injury (Upper) General Chief Complaint: Extremity Injury, Upper Stated Complaint: right arm pain Time Seen by Provider: 03/18/23 16:46 History of Present Illness HPI narrative: 32-year-old female presents to the emergency room for evaluation of acute on chronic right shoulder pain. Patient states she has been experiencing right shoulder pain for over 2 years, has been evaluated by multiple orthopedists, been given joint injections and has completed 2 rounds of physical therapy. Patient states that she performs repetitious activities while at work. Pain is worse in the morning and has not been relieved by low-dose Flexeril. Denies any recent injury or trauma. States pain is worse when she attempts to put her arm up overhead, touch the middle of her back or reach across. Denies any radicular symptoms. Related Data Home Medications Medication Instructions Recorded Confirmed bictegravir 50 mg-emtricitabine 1 tablet PO DAILY 10/28/22 200 mg-tenofovir alafenam 25 mg tablet (Biktarvy) hydrocodone 5 mg-acetaminophen 325 0.5 tablet PO BID 10/28/22 mg tablet Allergies Allergy/AdvReac Type Severity Reaction Status Date / Time oxycodone Allergy Intermediate HIVES/RASH/ Verified 10/28/22 12:49 ITCHY Review of Systems Review of Systems: CONSTITUTIONAL: Denies fever, chills, or sweats. EYES: Denies visual changes, redness, or discharge. ENT: Denies rhinorrhea, congestion, sore throat, or otalgia. CARDIOVASCULAR: Denies chest pain, palpitations, or edema. RESPIRATORY: Denies cough or dyspnea. GASTROINTESTINAL: Denies abdominal pain, nausea, vomiting, or diarrhea. GENITOURINARY: Denies dysuria or hematuria. SKIN: Denies rash or itching. MUSCULOSKELETAL: Per HPI, right shoulder pain NEUROLOGIC: Denies headache, numbness, dizziness, or weakness. PSYCHIATRIC: Denies anxiety or depression. [facility] Past Medical History Medical History Ectopic HIV (human immunodeficiency virus infection) Surgical History Surgical History H/O tubal ligation History of partial hysterectomy Social History Social History Smoking status: Current every day smoker Gender identity (if verbalized by the patient): Female Exam Narrative: GENERAL: Well-appearing, well-nourished, no physical limitations, and in no acute distress. HEAD: Normocephalic, atraumatic. EYES: Conjunctivae normal, PERRLA and EOMI. CHEST: Clear to auscultation. No respiratory distress. No wheezes rales or rhonchi. HEART: Regular rate and rhythm. No murmur heard. Normal peripheral pulses. EXTREMITIES: Right shoulder: Tenderness extends from the anterior lateral aspect of the acromion into the lateral surface of the mid humerus. Positive Neer and Cole Reese test. No bony abnormality or deformity. Neurovascular is intact distally. SKIN: Warm, dry, no rash. No noted wounds NEURO: No focal deficits. Alert and oriented x3. MAEW. CN's II-XI intact bilaterally, normal gait PSYCH: Cooperative. Normal mood and affect. Course Vital Signs Vital signs: Vital Signs Temperature 36.7 C 03/18/23 16:40 Pulse Rate 79 03/18/23 16:40 Respiratory Rate 18 03/18/23 16:40 Blood Pressure 111/78 03/18/23 16:40 Pulse Oximetry 100 03/18/23 16:40 Temperature 36.7 C 03/18/23 16:40 Pulse Rate 79 03/18/23 16:40 Respiratory Rate 18 03/18/23 16:40 Blood Pressure 111/78 03/18/23 16:40 Pulse Oximetry 100 03/18/23 16:40 Discharge Plan Discharge Clinical Impression: Impingement of right shoulder Patient Disposition: Home, Self-Care Condition: Stable Instructions: Antibiotic Form, Shoulder Pain (ED) Prescriptions: New prednisone 20 mg tablet 60 mg PO DAILY 5 Days Qty: 15 0RF methocarbamol 500 mg tablet 500 mg PO T
== END 2023-03-18 18:01 | disposition home or self-care (01) ==
LOC: ANHED 17:32
PROVIDERS: Emergency Provider Nurse Practitioner Family; PCP Internal Medicine Gastroenterology
DX: M25.811 Other specified joint disorders, right shoulder (principal); Z21 Asymptomatic human immunodeficiency virus [HIV] infection status; Z79.899 Other long term (current) drug therapy; Z90.711 Acquired absence of uterus with remaining cervical stump; F17.200 Nicotine dependence, unspecified, uncomplicated
CPT/HCPCS: 99283

== ENCOUNTER 2023-09-23 10:35 | Emergency (ER) | payer OTHER, SELFPAY ==
[2023-09-23 10:51] VITALS: BP 117/78; PULSE 71; RESP 20; TEMP 36.2; O2SAT 99
--- NOTE | 2023-09-23 13:05 | ED.UPPEXIN ---
HPI - Extremity Injury (Upper) General Chief Complaint: Extremity Injury, Upper Stated Complaint: R shoulder pain/injury Time Seen by Provider: 09/23/23 12:44 History of Present Illness HPI narrative: Patient is a 32-year-old female who presents to ER with right shoulder pain. Is been a chronic issue. She is scheduled to have a cortisone injection this week. 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 No numbness tingling to the arm. Symptoms are worse with lifting on physical movements. Radiates into her shoulder blade. Related Data Allergies Allergy/AdvReac Type Severity Reaction Status Date / Time oxycodone Allergy Intermediate HIVES/RASH/ Verified 10/28/22 12:49 ITCHY Review of Systems Musculoskeletal: Musculoskeletal: Reports arthralgias and Denies joint swelling Neurologic: Denies focal weakness and Denies numbness PMFSH Past Medical History Medical History (Updated 09/23/23 @ 13:09 by Yuri Romo MD) Ectopic HIV (human immunodeficiency virus infection) Surgical History Surgical History H/O tubal ligation History of partial hysterectomy Family History Family History Father Heart disease Mother Depression Grandparent Breast cancer Lung cancer Grandparent Lung cancer Skin cancer Social History Social History Smoking packs per day: 0.5 Smoking cigarettes per day: 10.0 Smoking status: Current every day smoker Alcohol intake: never Substance use: never Substance use type: does not use Living arrangements: with family Occupation/Education: unemployed Gender identity (if verbalized by the patient): Female Agree to blood products: Yes Exam Narrative: GENERAL: Well-appearing, well-nourished, and in no acute distress. HEAD: Normocephalic, atraumatic. ENT: Mucous membranes moist. Neck: No midline tenderness the C-spine. There is right paraspinal muscular tenderness moving into the trapezius as well as rhomboid musculature. EXTREMITIES: Focused exam of the right upper extremity reveals normal internal external rotation. Patient can reach behind her back to the level of T8. SKIN: Warm, dry, no rash. NEURO: Alert and oriented x3. PSYCH: Normal mood and affect. Course Course Emergency Course: Symptoms felt to be more musculoskeletal as opposed to primary joint. Will place on anti-inflammatories and muscle relaxer. Discharge home. Vital Signs Vital signs: Vital Signs Temperature 97.1 F L 09/23/23 10:51 Pulse Rate 71 09/23/23 10:51 Respiratory Rate 20 09/23/23 10:51 Blood Pressure 117/78 09/23/23 10:51 Pulse Oximetry 99 09/23/23 10:51 Oxygen Delivery Room Air 09/23/23 10:51 Temperature 97.1 F L 09/23/23 10:51 Pulse Rate 64 09/23/23 14:00 Respiratory Rate 15 09/23/23 14:00 Blood Pressure 131/84 09/23/23 14:00 Pulse Oximetry 100 09/23/23 14:00 Oxygen Delivery Room Air 09/23/23 10:51 Discharge Plan Discharge Clinical Impression: Shoulder strain Patient Disposition: Still a Patient Condition: Stable Instructions: Exercises for Shoulder Flexion and Extension (ED), Exercises for Internal and External Shoulder Rotation (ED), Exercises for Shoulder Abduction and Adduction (ED) Additional Instructions: Follow-up with your orthopedic surgeon for further treatment evaluation. The anti-inflammatory medication as well as the muscle exercise help alleviate her discomfort. Prescriptions: New cyclobenzaprine 10 mg tablet 10 mg PO TID PRN (Reason: muscle spasm) Qty: 20 0RF naproxen 375 mg tablet 375 mg PO BID Qty: 14 0RF No Action khcrvfpnsi-alcscrqzoqkyh-lvid 50-325-40 mg tablet 1 tablet PO BID Qty: 180 0RF fluoxetine 40 mg capsule 40 mg PO DAILY Qty: 90 2RF Biktar
[2023-09-23] MEDS: KETOROLAC (*BKC) 60 MG/2 ML VIAL IM (13:30)
[2023-09-23 14:00] VITALS: BP 131/84; PULSE 64; RESP 15; O2SAT 100
== END 2023-09-23 14:02 | disposition home or self-care (01) ==
LOC: ANHED 13:34
PROVIDERS: Emergency Provider Emergency Medicine; PCP Internal Medicine Gastroenterology
DX: S46.911A Strain of unspecified muscle, fascia and tendon at shoulder and upper arm level, right arm, initial encounter (principal); F17.210 Nicotine dependence, cigarettes, uncomplicated; B20 Human immunodeficiency virus [HIV] disease; X58.XXXA Exposure to other specified factors, initial encounter
CPT/HCPCS: 96372; 99283; J1885

== ENCOUNTER 2024-05-09 16:45 | Observation (INO) | payer OTHER, SELFPAY ==
--- NOTE | ~2024-05-09 | CT_ITS ---
EXAMINATION: CT abdomen pelvis wo con DATE: 05/10/2024 13:20 INDICATION: Abdominal pain, distention and nausea TECHNIQUE: Computed tomography (CT) of the abdomen and pelvis was performed without intravenous contr ast. Automated exposure control and iterative reconstruction technique were employed. The dose-length product was 325.15 mGy-cm. COMPARISON: CT dated 06/30/2022 FINDINGS: Linear subpleural bands of atelectasis/scarring at the periphery of the left lower lobe. Heart size i s normal. No pericardial or pleural effusion. Mild diffuse hepatic steatosis. Gallbladder, spleen, pa ncreas, bilateral adrenal glands and kidneys are normal. Moderate to large amount stool scattered thr oughout the normal-appearing colon. Small bowel and appendix are normal. No dilated gas-filled loops of bowel to suggest obstruction. Bladder is normal. The uterus is not identified and has likely been surgically resected. Mild thoracolumbar dextrocurvature. IMPRESSION: 1. Moderate to large amount of colonic stool which could be seen with constipation. No bowel obstruct ion or other acute intra-abdominal/pelvic process. 2. Mild diffuse hepatic steatosis. Reviewed, dictated and finalized at location B. IMPRESSION: 1. Moderate to large amount of colonic stool which could be seen with constipat ion. No bowel obstruction or other acute intra-abdominal/pelvic process. 2. Mild diffuse hepatic steatosis.
--- NOTE | ~2024-05-09 | XR_ITS ---
EXAMINATION: XR chest 2V Exam Date/Time: 05/09/2024 17:17 CDT HISTORY: short of breath, lower legs swelling, wt gain, hiv + Comparison: 05/14/2022. RESULT: Lines, tubes, and devices: None. Lungs and pleura: Clear. Cardiomediastinal silhouette: Stable. Other: No acute osseous or upper abdominal finding. IMPRESSION: No acute cardiopulmonary process. Reviewed, dictated and finalized at location K.
--- NOTE | ~2024-05-09 | US_ITS ---
EXAMINATION: US venous doppler [facility] DATE: 05/09/2024 23:04 INDICATION: Bilateral lower extremity edema . TECHNIQUE: Grayscale images without and with compression and Doppler images of the bilateral lower ex tremity veins were obtained. COMPARISON: None FINDINGS: The right common femoral vein, profunda (deep) femoral vein, femoral vein, popliteal vein, peroneal v ein, posterior tibial veins, and greater saphenous vein are patent. The left common femoral vein, profunda (deep) femoral vein, femoral vein, popliteal vein, peroneal v ein, posterior tibial veins, and greater saphenous vein are patent. Valdivia's cyst. IMPRESSION: Patent bilateral lower extremity veins. No evidence of deep venous thrombosis. Reviewed, dictated and finalized at location K.
--- NOTE | 2024-05-09 16:47 | ECG_ITS ---
Test Date: 2024-05-09 16:56:29 Measurements Intervals [place] Rate: 63 P: 19 IN: 122 QRS: 86 QRSD: 94 T: 69 QT: 446 QTc: 458 Interpretive Statements SINUS RHYTHM INCOMPLETE RIGHT BUNDLE BRANCH BLOCK DELAYED PRECORDIAL R/S TRANSITION BASELINE ARTIFACT- I, II, III, AVR, AVL, AVF BORDERLINE ECG No previous ECG available for comparison Electronically Signed On 05-09-2024 20:27:04 CDT by Vicente Coley D.O.
[2024-05-09 16:49] VITALS: BP 121/67; PULSE 61; RESP 19; TEMP 36.4; O2SAT 100
[2024-05-09 17:17] LABS: Basophils Percent Auto 0.4 % (0.2-1.2); Eosinophils Absolute Auto 0.4 K/mm3 (0-0.3); Eosinophils Percent Auto 5.3 % (0-4.4); Hemoglobin 13.4 g/dL (12.0-15.0); Immature Granulocyte Absolute 0.03 K/mm3 (0.00-0.031); Immature Granulocyte Percent A 0.4 % (0-0.5); Lymphocytes Absolute Auto 2.89 K/mm3 (0.9-3.2); Lymphocytes Percent Auto 36.7 % (18.3-44.2); Mean Corpuscular HGB Conc 34.4 g/dl (32-36); Mean Corpuscular Hemoglobin 31.7 pg (26-34); Mean Corpuscular Volume 92.2 fl (80-100); Monocytes Absolute Auto 0.6 K/mm3 (0.1-0.6); Monocytes Percent Auto 7.2 % (2.6-8.5); Neutrophils Absolute Auto 3.9 K/mm3 (1.3-6.7); Platelet Count Result 262 k/mm3 (150-375); Red Blood Count 4.23 M/mm3 (4.2-5.4); Red Cell Distribution Width 13.4 % (11.5-14.5); White Blood Count 7.9 K/mm3 (4.5-10.0)
[2024-05-09 17:27] LABS: INR 0.9; Partial Thromboplastin Time 26.4 Seconds (22.3-36.8)
[2024-05-09 17:53] LABS: D Dimer 0.34 ug/mL (<0.48)
[2024-05-09 17:54] LABS: Alanine Aminotransferase 41 U/L (6-35); Albumin Level 4.4 g/dL (3.5-5.1); Alkaline Phosphatase 101 U/L (38-126); Anion Gap 4 mmol/L (4-12); Aspartate Amino Transferase 35 U/L (14-36); Bilirubin,Total 0.5 mg/dL (0.2-1.3); Blood Urea Nitrogen 14 mg/dL (7-17); Calcium 9.2 mg/dL (8.4-10.2); Carbon Dioxide 31 mmol/L (22-30); Chloride 103 mmol/L (98-107); Estimated CRCL calculation 102 ml/min; Estimated Glomerular Filt Rate > 60; Glucose 112 mg/dL (65-110); Potassium 4.1 mmol/L (3.4-5.0); Sodium 138 mmol/L (137-145)
[2024-05-09 18:05] LABS: NT Pro B Type Natriuretic Pept 229 pg/mL (19.9-100); Troponin I < 0.012 ng/mL (0.000-0.034)
--- NOTE | 2024-05-09 18:27 | ED.GENADULT ---
HPI - General Adult General Chief complaint: Shortness of Breath/Dyspnea Stated complaint: short of breath Time Seen by Provider: 05/09/24 17:28 History of Present Illness HPI narrative: this is a 33-year-old female with HIV presenting with lower extremity edema. Over the last month patient is notes that her ankles have been swelling, she is unable to lie flat at night become she becomes short of breath. additionally she has developed a sharp left-sided chest pain that is worse when she lays flat, and improves when she sits forward. Patient notes 30 lb weight gain over the last month with swelling of her legs and abdomen. Patient has no history of heart failure/cardiomyopathy. Patient denies fevers chills productive cough. She is on Biktarvy and her viral load is undetectable. Related Data Allergies Allergy/AdvReac Type Severity Reaction Status Date / Time oxycodone Allergy Intermediate HIVES/RASH/ Verified 05/09/24 17:31 ITCHY PMFSH Past Medical History Medical History Ectopic HIV (human immunodeficiency virus infection) Surgical History Surgical History H/O tubal ligation History of partial hysterectomy Family History Family History Father Heart disease Mother Depression Grandparent Breast cancer Lung cancer Grandparent Lung cancer Skin cancer Social History Social History Smoking packs per day: 0.5 Smoking cigarettes per day: 10.0 Smoking status: Current every day smoker Alcohol intake: never Substance use: never Substance use type: does not use Living arrangements: with family Occupation/Education: unemployed Gender identity (if verbalized by the patient): Female Agree to blood products: Yes Exam Narrative: APPEARANCE: No apparent distress. Head: atraumatic. EYES: EOMI, NOSE: Atraumatic NECK: Trachea midline RESPIRATORY: No increased rate of breathing, clear to auscultation CARDIOVASCULAR: RRR, +2 pitting edema of the lower extremities ABDOMINAL: soft MUSCULOSKELETAl: No obvious deformities NEURO: Alert. Moving 4/4 extremities SKIN:: Warm, dry. Normal color PSYCHIATRIC: Normal affect Course Vital Signs Vital signs: Vital Signs Temperature 97.6 F 05/09/24 16:49 Pulse Rate 61 05/09/24 16:49 Respiratory Rate 19 05/09/24 16:49 Blood Pressure 121/67 05/09/24 16:49 Pulse Oximetry 100 05/09/24 16:49 Oxygen Delivery Room Air 05/09/24 16:49 Temperature 97.6 F 05/09/24 16:49 Pulse Rate 61 05/09/24 16:49 Respiratory Rate 19 05/09/24 16:49 Blood Pressure 121/67 05/09/24 16:49 Pulse Oximetry 100 05/09/24 16:49 Oxygen Delivery Room Air 05/09/24 17:30 Medical Decision Making MDM Narrative Medical decision making narrative: -Course: 33-year-old female with HIV presenting with 1 month of lower extremity edema, orthopnea and dyspnea on exertion. Workup including troponin, BNP chest x-ray and EKG was unremarkable. Clinically the patient is describing cardiomyopathy which is a known side effect of HIV. Patient will be admitted the hospital for echocardiogram and cardiology evaluation. -DDX includes but is not limited to: HIV cardiomyopathy, pericarditis, myocarditis -Co-morbidities complicating care: HIV -Independent interpretation of studies: labs reviewed. Initial troponin undetectable. BNP 229 chest x-ray normal. Independent EKG interpretation: Rhythm [sinus], Rate [63], [place] -[normal], [place] -[normal], QRS [narrow], QTC [normal], T waves -[negative for concerning inversions], ST Segments - [Negative for concerning elevations] Final interpretations: [Normal Sinus Rhythm] -Discussion of Management/Consultants:[place] -Shared decision making / Disposition: Admitted Vital Signs Vital
[2024-05-09 18:50] VITALS: BP 113/72; PULSE 69; RESP 16; O2SAT 100
[2024-05-09 19:03] LABS: Appearance Urine Clear (Clear); Bacteria Urine 4+ /hpf; Bilirubin Urine Negative (Negative); Blood Urine Negative (Negative); Color Urine Yellow (Yellow); Glucose Urine UA Negative (Negative); Ketones Urine Negative (Negative); Leukocyte Esterase Ur Trace LEU/UL (Negative); Nitrate Urine Positive (Negative); Non Pathogenic Casts 0-2; Protein Urine Negative (Negative); RBC Urine 0-2 /hpf (0-2); Specific Grav Ur 1.012 (1.001-1.035); Squamous Epithelial Cell Urine Few /hpf (Few); Urobilinogen Urine 0.2 mg/dL (<2.0)
[2024-05-09 19:14] LABS: Amphetamine Screen Urine Negative (Negative); Barbiturate Screen Urine Negative (Negative); Benzodiazepines Screen Urine Negative (Negative); Cannabinoid Screen Urine Negative (Negative); Cocaine Screen Urine Negative (Negative); Methadone Screen Urine Positive (Negative); Opiate Screen Urine Negative (Negative); Phencyclidine Screen Urine Negative (Negative)
[2024-05-09 19:18] LABS: Add Urine Microscopic? YES
[2024-05-09 19:37] VITALS: BP 107/59; PULSE 65; RESP 15; O2SAT 100
[2024-05-09 20:00] VITALS: BP 108/61; PULSE 68; RESP 18; TEMP 36.6; O2SAT 99
[2024-05-09 20:49] VITALS: BMI 22.4
--- NOTE | 2024-05-09 20:49 | ADMGEN ---
This patient, Liz Hurtado, was admitted to Medical Room 260-01. Patient/family oriented to hospital policies and general routines including ID bracelet, bed and alarms, visiting hours, pain management, procedures, bathroom and other care routines, personal items, smoking policy, room service/diet, and visiting hours. Information on how to activate the Rapid Response Team has been discussed. Patient/Family are encouraged to report perceived risks to care and to ask questions if they do not understand what they are told or what they should do.
[2024-05-09 21:03] LABS: Troponin I < 0.012 ng/mL (0.000-0.034)
--- NOTE | 2024-05-09 22:04 | PM.IMHP ---
H&P: HPI History of Present Illness Date/Time: 05/09/24 22:05 Chief Complaint: Swelling and shortness of breath. Narrative: This is a 33-year-old female with human immunodeficiency virus on Biktarvy with reportedly undetectable viral loads and history of fentanyl abuse on the mg of methadone daily who presented to the emergency department for evaluation of swelling and shortness of breath. The patient provides the following history. The last month she has developed increasing lower extremity edema which is now extending up into the abdomen. She is getting a bit short of breath with exertion and endorses orthopnea. She has reportedly gained 30 lb in the same time frame. Additionally she reports intermittent, nonradiating sharp left-sided chest pain which is worse with lying supine and improved when sitting forward. She denies fever, chills, sweats, nausea, and vomiting. She denies exertional chest pain, pleuritic pain, palpitations, sensations of racing heart, cough, cold and flu symptoms, abdominal pain, nausea, vomiting, diarrhea, and dysuria. No known history of cardiac disease, cirrhosis, hypothyroidism, or venous thromboembolism. In the ED: She was afebrile on arrival with stable vital signs and an SpO2 of 100% on room air. CMP and CBC were did not show any significant abnormalities. Initial troponin was undetectable. ProBNP was 229. Urine was nitrate and leukocyte esterase positive with 11 to 20 WBC and 4+ bacteria noted on microscopy. Urine drug screen was positive for methadone which she is prescribed. EKG showed sinus rhythm with incomplete right bundle-branch block and delayed precordial R/S transition. Chest x-ray showed no acute cardiopulmonary disease. She is being admitted in this setting for further workup. Review of Systems Review of Systems: 12 systems were reviewed and are negative except for as per HPI. [facility] Past Medical History Medical History (Updated 05/09/24 @ 22:41 by Patience Pineda PA-C) Ectopic Human immunodeficiency virus (2015) Methadone dependence Migraine Posttraumatic stress disorder Surgical History Surgical History History of partial hysterectomy History of tubal ligation Family History Family History Father Heart disease Mother Depression Grandparent Breast cancer Lung cancer Grandparent Lung cancer Skin cancer Social History Social History (Updated 05/09/24 @ 22:16 by Patience Pineda PA-C) Social History: Surrogate medical decision maker: Kapil Agrawal, significant other. Code status: Full code. Smoking packs per day: 1 Smoking cigarettes per day: 20.0 Smoking status: Current every day smoker Alcohol intake: former Substance use: former Other substance usage details: Currently on methadone. Do You Feel Safe in your Home?: Yes Lack of Transportation: No Lack of Food: Never True Current Housing: I Have Housing Concerned About Future Housing: No Difficulty Paying Gas/Electric Bills: No Difficulty Paying for Meds: No Currently Unemployed: No Education: High School Diploma/GED Difficulty w/ Childcare or Family Care: No Living arrangements: with family Occupation/Education: unemployed Spiritual care concerns: No Agree to blood products: Yes Meds Home Medications and Allergies Home Medications Medication Instructions Recorded Confirmed Type cyclobenzaprine 10 mg tablet 10 mg PO TID PRN muscle spasm #20 09/23/23 05/09/24 Rx tabs fluoxetine 40 mg capsule 40 mg PO DAILY #30 caps 02/26/24 05/09/24 Rx acetaminophen 300 mg-codeine 30 mg 1 tablet PO BID PRN Pain (Scale 05/09/24 05/09/24 History tablet Score 4-6) bictegravir 50 mg-emtricitabine 1 tablet PO DAILY 05/09/24 05/09/24 History 200 mg-tenofovir alafenam 25 mg tablet (Biktarvy) [id number]-pwsaifbjmnwbk-cuhqqvhy 1 tablet PO BID MT
[2024-05-10] VITALS (8 sets, daily range): BP systolic 100–113; BP diastolic 52–64; PULSE 55–81; RESP 14–18; TEMP 36.4–36.9; O2SAT 95–99
--- NOTE | 2024-05-10 | ECHO_ITS ---
Patient Info Name: Liz Hurtado Age: 33 years : 1990 Gender: Female Ht: 69 in Wt: 151 lbs BSA: 1.83 m2 HR: 55 bpm BP: 111 / 61 mmHg Heart Rhythm: Sinus Rhythm Technical Quality: Good Exam Date: 05/10/2024 7:50 AM Exam Location: Echo Lab Patient Status: Outpatient Admit Date: 05/09/2024 Staff Ordering Physician: Patience Pineda PA-C Gear Machine Operator General: Mariann Romo RDCS Attending Provider: Erin Wong APRN Referring Physician: Miriam ESPINOSA; Exam Type: CA echo dop color flow w con Study Info Indications R06.02 - Shortness of breath - Edema, Complete two-dimensional, color flow and Doppler transthoracic echocardiogram is performed with contrast to opacify the left ventricle and to improve the deliniation of the left ventricle endocardial borders. Contrast/Agitated Saline Contrast/Ag. Saline: Definity Amount: 2.00 ml Administered By: Mariann Romo RDCS Existing IV Access: Yes IV Access Condition: patent with no signs of infiltration Summary 1. Left ventricular chamber dimension is normal. 2. Left ventricular systolic function is normal, estimated at 60-65%. 3. The left ventricular diastolic function is normal. 4. Right ventricular systolic function is normal. 5. There is mild tricuspid valve regurgitation. 6. Normal inferior vena cava with >50% collapse upon inspiration consistent with normal right atrial pressure, 3 mmHg. Left Ventricle Left ventricular chamber dimension is normal. Left ventricular systolic function is normal, estimated at 60-65%. There is no increased left ventricular wall thickness. The left ventricular diastolic function is normal. Right Ventricle Right ventricular chamber dimension is normal. Right ventricular systolic function is normal. Left Atria Left atrial chamber dimension is normal. Right Atria Right atrial chamber dimension is normal. Atrial Septum Intact interatrial septum visualized by color flow imaging. Aortic Valve The aortic valve is probable trileaflet. There is mild aortic valve sclerosis. There is no aortic valve stenosis. There is no aortic valve regurgitation. Pulmonic Valve The pulmonic valve is not well visualized. There is no pulmonic regurgitation. Mitral Valve There is trace mitral valve regurgitation. Tricuspid Valve There is mild tricuspid valve regurgitation. Pericardium/Pleural There is no pericardial effusion. Inferior Vena Cava Normal inferior vena cava with >50% collapse upon inspiration consistent with normal right atrial pressure, 3 mmHg. Aorta The aortic root size at the sinus of Valsalva is normal. Left Ventricular Outflow Tract Name Value Normal LVOT 2D LVOT Diameter 1.99 cm LVOT Doppler LVOT Peak Gradient 4 mmHg LVOT Mean Gradient 2 mmHg LVOT VTI 20.52 cm LVOT VTI/AV VTI Ratio 0.67 LVOT Stroke Volume 63.60 ml LVOT CO 3.93 l/min LVOT CI 2.15 L/min/m2 Pulmonic Valve
[2024-05-10 05:11] LABS: Hematocrit 38.7 % (37.0-47.0); Hemoglobin 13.1 g/dL (12.0-15.0); Mean Corpuscular HGB Conc 33.9 g/dl (32-36); Mean Corpuscular Hemoglobin 31.1 pg (26-34); Mean Corpuscular Volume 91.9 fl (80-100); Platelet Count Result 255 k/mm3 (150-375); Red Blood Count 4.21 M/mm3 (4.2-5.4); Red Cell Distribution Width 13.4 % (11.5-14.5); White Blood Count 7.2 K/mm3 (4.5-10.0)
[2024-05-10 05:30] LABS: Anion Gap 6 mmol/L (4-12); Blood Urea Nitrogen 13 mg/dL (7-17); Calcium 9.1 mg/dL (8.4-10.2); Carbon Dioxide 28 mmol/L (22-30); Chloride 105 mmol/L (98-107); Estimated CRCL calculation 117 ml/min; Estimated Glomerular Filt Rate > 60; Glucose 100 mg/dL (65-110); Sodium 139 mmol/L (137-145)
[2024-05-10 06:13] LABS: Thyroid Stimulating Hormone Reflex 0.985 uIU/mL (0.465-4.68)
[2024-05-10] MEDS: PERFLUTREN LIPID MICROSPHERES 1.5 ML VIAL DILUTED TO 10 ML TOTAL VOLUME IV PUSH (08:30)
[2024-05-10] MEDS: FLUoxetine HCL 20 MG CAPSULE 40 MG PO (08:46)
[2024-05-10] MEDS: ACETAMINOPHEN 325 MG TABLET 650 MG PO (08:47)
[2024-05-10] MEDS: BICTEGRAV EMTRICIT TENOFOV ALA PO (08:48)
[2024-05-10] MEDS: [UNRECOGNIZED DRUG - OTHER] PO (08:48)
--- NOTE | 2024-05-10 08:59 | PC.NURSE ---
Verified methadone dose with Isabel allen [facility], patient would start taking 95mg daily 05/10/24
--- NOTE | 2024-05-10 09:00 | PM.IMPN ---
Progress Note: A&P Assessment and Plan (1) Volume overload: Code(s): E87.70 - Fluid overload, unspecified Status: Acute Assessment and Plan: The patient presented to the emergency department for evaluation of significant edema and orthopnea over the last 1 month as detailed in HPI. Fair amount of pitting edema and reports a 30 lb weight gain.ProBNP is minimally elevated. Renal function is normal and no protein was noted in the urine. Cardiac silhouette looks normal on imaging. Lasix 20 mg IV x1 D-dimer is normal and PE seems less likely. Echocardiogram has been ordered for further evaluation. Check lower extremity venous Doppler ultrasounds to rule out DVT----No evidence of DVT Strict I&O Tele ordered Daily weight Heart healthy diet 05/10: ECHO was completed and found to be normal. DVT ruled out. She does have a urinary tract infection on U/A. Trace-+1 BLE to legs and feet. Will give another 1 x dose of IV lasix 20 mg. Albumin is normal. No clear etiology to explain her 30 lb weight gain, abdominal distention, and lower extremity swelling. She does have abdominal tenderness and nausea, vomiting. Will obtain CT abdomen, pelvis. (2) Left-sided chest pain: Code(s): R07.9 - Chest pain, unspecified Status: Acute Assessment and Plan: intermittent, nonradiating sharp left-sided chest pain which is worse with lying supine and improved when sitting forward. Troponin negative x 2 proBNP minimally elevated ECHO normal (3) Human immunodeficiency virus: Onset Date: 2014 Code(s): B20 - Human immunodeficiency virus [HIV] disease Status: Acute Assessment and Plan: On Biktarvy. Medication resumed. Plan Feeding:heart healthy diet Analgesia:tylenol, methadone Thromboembolic prophylaxis: Lovenox Lines: PIV Antibiotics: NA Disposition: home when medically ready Advance Care Plan I have confirmed that the patient's Advanced Care Plan is present, code status is documented, or surrogate decision maker is listed in patient medical record.: Yes Medication Reconciliation I have utilized all available resources to obtain, update and review the patients current medications (includes all prescriptions, OTC, herbals, cannabis, and nutritional supplements).: Yes Subjective Date/time seen: 05/10/24 09:00 Interval history: This is a 33-year-old female with human immunodeficiency virus on Biktarvy with reportedly undetectable viral loads and history of fentanyl abuse on the mg of methadone daily who presented to the emergency department for evaluation of swelling and shortness of breath. 05/10: Seen resting in bed with family at bedside. She reports having headache this morning that has started to go away after taking her home had a medication she also has had some nausea intermittently that is controlled with Zofran. A flat without becoming short of breath and becomes dyspneic with over exertion. She continues to have +1 pitting edema to her bilateral lower extremities. She is also having abdominal pain and distension. Review of Systems Review of Systems: 12 systems were reviewed and are negative except for as per HPI. All systems reviewed & are unremarkable except as noted in HPI and below Exam Narrative: General: well appearing, appears stated age. HEENT: normocephalic, atraumatic. Mucous membranes moist. EOMI, PERRLA, bilateral sclera anicteric, no conjunctival injection. Neck supple without JVD, lymphadenopathy, or bruit. Respiratory: clear to auscultation bilaterally. No rales/rhonic/wheezes. Cardiovascular: Regular rate and rhythm, normal S1-S2 upon auscultation. No murmurs, rubs, or clicks. PMI is nondisplaced, capillary refill less than 3 second. Abdomen: Soft, round, no pulsatile masses, slightly distended and mildly tender. No rebound, no guarding. No CVA tenderness, no hepatosplenomegaly. Bowel sounds present to all four quadrants. No hig
[2024-05-10] MEDS: ONDANSETRON INJ 4 MG/2 ML VIAL IV PUSH (09:24)
[2024-05-10] MEDS: ACETAMINOPHEN/BUTALBITAL/CAFFEINE 325-50-40 MG TABLET (FIORICET) 1 TAB PO (10:23)
--- NOTE | 2024-05-10 11:19 | IVDEFINITY ---
Prior to administration of IV Definity the patient was educated on the risks and benefits of the imaging enhancing agent including potential adverse side effects. The patient verbalized understanding. Allergies were verified. No exclusion criteria were identified and at least one of the following inclusion criteria were met: 1) physician request, 2) patient technically difficult to image (per the [place] [employer]ch[employer] guidelines of two or more segments not discernable within the apical view), or 3) questionable left ventricular function. ?
[2024-05-10] MEDS: methADONE HCL (*CRX) 10 MG TABLET 90 MG PO (11:21)
[2024-05-10] MEDS: methADONE HCL (*CRX) 5 MG TABLET PO (11:22)
[2024-05-10] MEDS: FUROSEMIDE INJ 40 MG/4 ML VIAL 20 MG IV PUSH (12:43)
[2024-05-10] MEDS: AMOXICILLIN/CLAVULANATE K 875-125 MG TAB 1 TABLET PO (15:10)
--- NOTE | 2024-05-10 15:53 | PM.DS ---
DS: Admitting Diagnosis Discharge Date 05/10 Admitting Diagnosis bilateral lower leg swelling DS: Discharge Diagnosis Discharge Diagnosis (1) Volume overload: Code(s): E87.70 - Fluid overload, unspecified Status: Acute Assessment and Plan: The patient presented to the emergency department for evaluation of significant edema and orthopnea over the last 1 month as detailed in HPI. Fair amount of pitting edema and reports a 30 lb weight gain.ProBNP is minimally elevated. Renal function is normal and no protein was noted in the urine. Cardiac silhouette looks normal on imaging. Lasix 20 mg IV x1 D-dimer is normal and PE seems less likely. Echocardiogram has been ordered for further evaluation. Check lower extremity venous Doppler ultrasounds to rule out DVT----No evidence of DVT Strict I&O Tele ordered Daily weight Heart healthy diet 05/10: ECHO was completed and found to be normal. DVT ruled out. She does have a urinary tract infection on U/A. Trace-+1 BLE to legs and feet. Will give another 1 x dose of IV lasix 20 mg. Albumin is normal. No clear etiology to explain her 30 lb weight gain, abdominal distention, and lower extremity swelling. She does have abdominal tenderness and nausea, vomiting. Will obtain CT abdomen, pelvis. (2) Left-sided chest pain: Code(s): R07.9 - Chest pain, unspecified Status: Acute Assessment and Plan: intermittent, nonradiating sharp left-sided chest pain which is worse with lying supine and improved when sitting forward. Troponin negative x 2 proBNP minimally elevated ECHO normal (3) Human immunodeficiency virus: Onset Date: 2014 Code(s): B20 - Human immunodeficiency virus [HIV] disease Status: Acute Assessment and Plan: On Biktarvy. Medication resumed. Plan Feeding:heart healthy diet Analgesia:tylenol, methadone Thromboembolic prophylaxis: Lovenox Lines: PIV Antibiotics: NA Disposition: home when medically ready Advance Care Plan I have confirmed that the patient's Advanced Care Plan is present, code status is documented, or surrogate decision maker is listed in patient medical record.: Yes Medication Reconciliation I have utilized all available resources to obtain, update and review the patients current medications (includes all prescriptions, OTC, herbals, cannabis, and nutritional supplements).: Yes DS: Summary Hospital Course Reason for hospitalization: bilateral lower leg swelling Hospital Course: 33-year-old female with a past medical history of HIV on Biktarvy, fentanyl abuse on methadone reports emergency room with bilateral lower extremity edema and complaints of dyspnea when lying flat. She was admitted and workup was pursued with echocardiogram which was normal. CT abdomen pelvis shows hepatic steatosis and constipation. Renal function is normal. Albumin normal. Bilateral lower extremity DVT was ruled out as well. I decided that her swelling might have been related to her methadone use. The patient thought that this could also be possible as swelling started shortly after her methadone was last increased. Patient was instructed on using Robert hose, low-sodium diet, and follow-up with her primary care provider. UA was concerning for urinary tract infection and while the patient did not have dysuria she did have complaints of urinary frequency prior to presentation. She was given 3 days of Augmentin for UTI. Time Spent with Patient Time attestation: Total time spent providing and/or coordinating discharge services: 68 Exam Narrative: General: well appearing, appears stated age. HEENT: normocephalic, atraumatic. Mucous membranes moist. EOMI, PERRLA, bilateral sclera anicteric, no conjunctival injection. Neck supple without JVD, lymphadenopathy, or bruit. Respiratory: clear to auscultation bilaterally. No rales/rhonic/wheezes. Cardiovascular: Regular rate and rhythm, normal S1-S2 upon
== END 2024-05-10 16:10 | disposition home or self-care (01) ==
LOC: ANHED 18:33 → ANH2MED 20:09
PROVIDERS: Physician Assistant; Admitting Provider Internal Medicine; Emergency Provider Emergency Medicine; PCP Internal Medicine Gastroenterology; Visit Provider Nurse Practitioner Acute Care
DX: E87.70 Fluid overload, unspecified (principal); N39.0 Urinary tract infection, site not specified; R07.9 Chest pain, unspecified; R06.01 Orthopnea; Z21 Asymptomatic human immunodeficiency virus [HIV] infection status; F43.10 Post-traumatic stress disorder, unspecified; I36.1 Nonrheumatic tricuspid (valve) insufficiency; F11.20 Opioid dependence, uncomplicated; F17.210 Nicotine dependence, cigarettes, uncomplicated; Z79.899 Other long term (current) drug therapy
CPT/HCPCS: 36415; 71046; 74176; 80048; 80053; 80307; 81001; 81025; 83735; 83880; 84443; 84484; 85025; 85027; 85380; 85610; 85730; 87077; 87086; 87088; 87186; 93005; 93970; 96374; 96375; 99285; A9270; C8929; G0378; J1940; J2405; Q9957

== ENCOUNTER 2024-08-10 07:51 | Emergency (ER) | payer BC, MEDICAID, SELFPAY ==
--- NOTE | ~2024-08-10 | US_ITS ---
EXAMINATION: US arterial duplex LE RT DATE: 08/10/2024 11:03 INDICATION: Right groin pain. TECHNIQUE: Multiple grayscale and Doppler ultrasound images of the arteries and veins at the right gr oin were obtained. COMPARISON: None FINDINGS: Arterial waveforms with normal brisk systolic upstrokes at the right common femoral, superficial femo ral and profunda femoral arteries. No evident stenosis, aneurysm or pseudoaneurysm. The right common femoral and superficial femoral veins appear patent on grayscale imaging with normal directional flow and color Doppler. Normal sized right inguinal lymph nodes with typical central echogenic fatty jensen . IMPRESSION: 1. Normal study. No pseudoaneurysm at the right groin. Reviewed, dictated and finalized at location A.
[2024-08-10 07:55] VITALS: BP 136/84; PULSE 84; RESP 14; TEMP 36.4; O2SAT 100
[2024-08-10] MEDS: ACETAMINOPHEN/CODEINE (*CRX) 300/30 MG TABLET 2 TAB PO (10:03)
--- NOTE | 2024-08-10 11:35 | ED.GENADULT ---
HPI - General Adult General Chief complaint: Unspecified Stated complaint: R leg pain s/p venogram at [facility] Time Seen by Provider: 08/10/24 07:58 History of Present Illness HPI narrative: This is a 33-year-old female with history of HIV presenting ED with right groin pain. Patient had a venogram with puncture site in the right groin performed at [facility] yesterday. Today while she was walking around she developed severe pain in her right groin that radiates down her leg. No swelling of her leg, no palpable masses in her groin, she takes chronic opiates for pain. No other complaints Related Data Home Medications Medication Instructions Recorded Confirmed acetaminophen 300 mg-codeine 30 mg 1 tablet PO BID PRN Pain (Scale 05/09/24 05/09/24 tablet Score 4-6) bictegravir 50 mg-emtricitabine 1 tablet PO DAILY 05/09/24 05/09/24 200 mg-tenofovir alafenam 25 mg tablet (Biktarvy) kpahxbfney-hhyuiomrwzfqq-ihtzgdhn 1 tablet PO BID PRN Migraine 05/09/24 05/09/24 50 mg-325 mg-40 mg tablet Headache ibuprofen 800 mg tablet 800 mg PO TID PRN Pain (Scale 05/09/24 05/09/24 Score 1-3) methadone 40 mg soluble tablet 95 mg PO DAILY 05/09/24 05/10/24 Allergies Allergy/AdvReac Type Severity Reaction Status Date / Time oxycodone Allergy Intermediate HIVES/RASH/ Verified 05/09/24 17:31 ITCHY PMFSH Past Medical History Medical History (Updated 08/10/24 @ 11:41 by Wilber Diehl MD) Ectopic Human immunodeficiency virus (2014) Methadone dependence Migraine Posttraumatic stress disorder Surgical History Surgical History History of partial hysterectomy History of tubal ligation Family History Family History Father Heart disease Mother Depression Grandparent Breast cancer Lung cancer Grandparent Lung cancer Skin cancer Social History Social History (Updated 05/09/24 @ 22:16 by Patience Pineda PA-C) Social History: Surrogate medical decision maker: Kapil Agrawal, significant other. Code status: Full code. Smoking packs per day: 1 Smoking cigarettes per day: 20.0 Smoking status: Current every day smoker Alcohol intake: former Substance use: former Other substance usage details: Currently on methadone. Do You Feel Safe in your Home?: Yes Lack of Transportation: No Lack of Food: Never True Current Housing: I Have Housing Concerned About Future Housing: No Difficulty Paying Gas/Electric Bills: No Difficulty Paying for Meds: No Currently Unemployed: No Education: High School Diploma/GED Difficulty w/ Childcare or Family Care: No Living arrangements: with family Occupation/Education: unemployed Spiritual care concerns: No Agree to blood products: Yes Exam Narrative: APPEARANCE: No apparent distress. Head: atraumatic. EYES: EOMI, NOSE: Atraumatic NECK: Trachea midline RESPIRATORY: No increased rate of breathing CARDIOVASCULAR: RRR, focal exam of the right groin shelled showed a small puncture site. No pulsatile mass. No palpable thrill or pulsatile mass. Foot is warm with strong pulses ABDOMINAL: Non-distended MUSCULOSKELETAl: No obvious deformities NEURO: Alert. Moving 4/4 extremities SKIN:: Warm, dry. Normal color PSYCHIATRIC: Normal affect Course Vital Signs Vital signs: Vital Signs Temperature 97.6 F 08/10/24 07:55 Pulse Rate 84 08/10/24 07:55 Respiratory Rate 14 08/10/24 07:55 Blood Pressure 136/84 08/10/24 07:55 Pulse Oximetry 100 08/10/24 07:55 Oxygen Delivery Room Air 08/10/24 07:55 Temperature 97.6 F 08/10/24 07:55 Pulse Rate 84 08/10/24 07:55 Respiratory Rate 14 08/10/24 07:55 Blood Pressure 136/84 08/10/24 07:55 Pulse Oximetry 100 08/10/24 07:55 Oxygen Delivery Room Air 08/10/24 07:55 Medical Decision Making MDM Narrative Medical decision agata
== END 2024-08-10 11:46 | disposition home or self-care (01) ==
PROVIDERS: Emergency Provider Emergency Medicine; PCP Internal Medicine Gastroenterology
DX: R10.31 Right lower quadrant pain (principal); Z98.890 Other specified postprocedural states; Z21 Asymptomatic human immunodeficiency virus [HIV] infection status; F43.10 Post-traumatic stress disorder, unspecified; F17.210 Nicotine dependence, cigarettes, uncomplicated; F11.20 Opioid dependence, uncomplicated; Z90.711 Acquired absence of uterus with remaining cervical stump; Z79.899 Other long term (current) drug therapy
CPT/HCPCS: 93926; 99284; A9270

== ENCOUNTER 2025-02-05 11:01 | Emergency (ER) | payer OTHER, SELFPAY ==
[2025-02-05] VITALS (13 sets, daily range): BP systolic 98–123; BP diastolic 75–77; PULSE 59–87; RESP 11–27; TEMP 37.1; O2SAT 99–100
--- OUTSIDE RECORDS SUMMARY | 2025-02-05 11:03 | XMS_ITS | Clinical Summary ---
Author Organization [email or web address] Address [address] [place] [address] Care Team Providers Care Temperature Regulator Pyrometer Name Role Phone Joey Bee Primary Care Provider + Joey Bee Unavailable [phone] Joey Bee Unavailable [phone] Source Comments [facility],non-[facility] Affiliates and Associated Physician Practices is amultiple site organization consisting of ambulatory clinics and hospital sitesin [place], [place], [place] and [place]. This disclosure is being madepursuant to the Care Everywhere program and may not contain all information available regarding this patient. Last updated 18.[email or web address] Allergies Active Allergy Reactions Criticality Noted Date Comments Adderall Urticaria Medium 05/20/2009 Oxycodone Itching Low 07/03/2017 Oxycodone-Acetaminophen Itching 09/12/2017 Medications * Be aware that medications may not be up to date on this document. Alwaysverify current medications with the patient. Medication Sig Dispensed Refills Start Date End Date Status acetaminophen (TYLENOL) 325 MG tablet Take 325 mg by mouth every 4 hours as needed for Headache Maximum allowable Acetaminophen amount = 4 Grams (4000 mg) / 24 hours. Active ibuprofen (MOTRIN) 600 MG tablet Take 1 Tab by mouth every 6 hours as needed for Pain 24 Tab 0 6 Active butalbital-acetaminop hen-caffeine (Fioricet) 50-300-40 MG capsule butalbital-aspirin- caffeine 50 mg-325 mg-40 mg capsule Active topiramate (TOPAMAX) 25 MG tablet 5 (five) tablets at bedtime 9 Active HYDROcodone-acetamino phen (NORCO) 5-325 MG tablet Take 1 tablet by mouth every 4 hours as needed 24 tablet 9 Active docusate sodium (COLACE) 100 MG capsule Take 1 capsule by mouth 2 times daily 30 capsule 9 Active ibuprofen (MOTRIN) 600 MG tablet Take 1 tablet by mouth every 6 hours as needed for Pain 40 tablet 9 Active traMADol (ULTRAM) 50 MG tablet Take 50 mg by mouth every 12 hours as needed for Pain Active AMOXICILLIN-POT CLAVULANATE PO Take 1 tablet by mouth 2 times daily Active benzonatate (TESSALON) 100 MG capsule benzonatate 100 mg capsule TK ONE C PO Q 8 H PRN Active bictegravir-emtricita bine-tenofovir (BIKTARVY) 50-200-25 MG Biktarvy 50 mg-200 mg-25 mg tablet TAKE 1 TABLET BY MOUTH EVERY DAY Active hfqmxqgvdw-yrxqzin-jq ffeine (FIORINAL) 50-325-40 MG capsule butalbital-aspirin- caffeine 50 mg-325 mg-40 mg capsule Active cyclobenzaprine (FLEXERIL) 5 MG tablet Take 5 mg by mouth 2 times daily as needed 2 Active cyclobenzaprine (FLEXERIL) 5 MG tablet cyclobenzaprine 5 mg tablet TAKE 1 TABLET BY MOUTH TWICE DAILY NEEDED Active FLUoxetine (PROZAC) 40 MG capsule fluoxetine 40 mg capsule TAKE 1 CAPSULE BY MOUTH EVERY DAY IN THE MORNING Active promethazine-DM syrup promethazine-DM 6.25 mg-15 mg/5 mL oral syrup TAKE 5 ML BY MOUTH EVERY 4 HOURS FOR 10 DAYS NEEDED Active bictegravir-emtricita bine-tenofovir (BIKTARVY) 50-200-25 MGIndications:Human immunodeficiency virus (HIV) disease (HCC) Take 1 (one) tablet by mouth once daily 30 tablet 4 2 Active meloxicam (Mobic) 15 MG tablet Take 1 (one) tablet by mouth once daily 30 tablet 2 2 Active Active Problems Patient Care Coordination No te Formatting of this note migh t be different from the original. Dr. Nickolas Dye Gastroenterology Dr. 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/21/2019 Abnormal uterine bleeding 10/20/2019 Irritable bowel syndrome 06/02/2019 Endometriosis of pelvis 05/09/2019 Dental caries 01/27/2019 Insomnia 01/26/2019 Facial cellulitis 09/12/2017 Labyrinthitis 03/18/2017 Restless legs 03/18/2017 IUGR (intrauterine growth re striction) affecting care of mother 03/24/2016 LAST I (cervical intraepithelial neoplasia I) Patient underweight 01/18/2016 Hematuria 11/23/2015 Human immunodeficiency virus infection 5 ASCUS of cervix with negative high risk HPV Resolved Problems Problem Noted Date Diagnosed Date Resolved Date Dental abscess 01/27/2019 05/22/2020 Severe gingivitis 01/27/2019 05/22/2020 Rubella non-immune status, antepartum 04/30/2016 05/22/2020 Overview (04/30/2016): Needs MMR PP premature rupture of membranes in third trimester 04/30/2016 05/22/2020 Tobacco smoking affecting 04/22/2016 05/22/2020 Rash 04/08/2016 05/06/2016 Small for gestational age 0503/24/2016 Pelvic pain affecting 03/20/2016 05/22/2020 Bacterial vaginosis 03/20/2016 05/22/20 20 Cough 11/23/2015 12/21/2015 HIV disease affecting pregna ncy in third trimester, antepartum 11/22/2015 05/22/2020 Supervision of high risk pre gnancy in third trimester 10/16/2015 05/22/2020 Hepatitis C virus infection without hepatic coma 05/22/2020 Forceps delivery 05/22/2020 state 05/22/2020 Immunizations Name Administration Dates Next Due MMR 05/02/2016 TDAP (7yrs+) 02/20/2016 Family History Medical History Relation Name Comments Heart Disease Father Hypertension Father Stroke Father Cancer Maternal Aunt breast Cancer Maternal Grandmother breast Diabetes Mother Relation Name Status Comments Father Maternal Aunt Maternal Grandmother Mother Social History Tobacco Use Types Packs/Day Years Used Date Smoking Tobacco: Every Day Cigarettes Smokeless Tobacco: Never Tobacco Cessation:Ready to Q uit: No; Counseling Given: Yes Alcohol Use Standard Drinks/Week Comments Yes 0 (1 standard drink = 0.6 oz pur e alcohol) rarely PHQ-2 Answer Date Recorded PHQ2 TOTAL SCORE 0 02/12/2022 Sex and Gender Information Value Date Recorded Sex Assigned at Not on file Gender Identity Not on file Sexual Orientation Not on file Last Filed Vital Signs Vital Sign Reading Time Taken Comments Blood Pressure 118/78 02/12/2022 8:49 AM CDT Pulse 97 02/12/2022 8:49 AM CDT Temperature 36.8 C (98.2 F) 02/12/2022 8:49 AM CDT Respiratory Rate 18 02/12/2022 8:49 AM CDT Oxygen Saturation 96% 02/12/2022 8:49 AM CDT Inhaled Oxygen Concentration - - Weight 63.5 kg (140 lb) 09/10/2022 10:50 AM CDT Height 175.3 cm (5' 9 ) 09/10/2022 10:50 AM CDT Body Mass Index 20.67 09/10/2022 10:50 AM CDT Plan of Treatment Health Maintenance Due Date Last Done Comments MENINGOCOCCAL GROUPS A/C/Y/W VACCINE (1 - Risk 2-dose series) 1991 HEPATITIS B VACCINE (1 of 3 - 19+ 3-dose series) 2008 PNEUMOCOCCAL VACCINE (1 of 2 - PCV) 2008 ZOSTER VACCINE (1 of 2) 2008 COVID-19 VACCINE (2 - Moderna risk series) 08/22/2021 07/25/2021 INFLUENZA VACCINE (#1) 2024 DEPRESSION SCREENING 11/09/2024 09/10/2022 DTAP/TDAP/TD VACCINES (2 - Td or Tdap) 02/19/2026 02/20/2016 HEPATITIS C SCREENING Completed 02/12/2022 , 02/12/2022, 02/12/2022, Additional history exists HIB VACCINE Aged Out No longer eligi ble based on patient's age to complete this topic HPV VACCINE Aged Out No longer eligi ble based on patient's age to complete this topic MENINGOCOCCAL (Group B) VACCINE SHARED DECISION-MAKING Aged Out No longer eligible based on patient's age to complete this topic Procedures Procedure Name Priority Date/Time Associated Diagnosis Comments HEPATITIS C RNA QUANTITATIVE 02/12/2022 9:45 AM CDT from Last 3 Months or Most Recently Relevant to Health Maintenance Results * HEPATITIS C RNA QUANTITATIVE (02/12/2022 9:45 AM CDT) [facility] Hepatitis C Virus RNA, Quantitative Real Time PCR <15 NOT DETECTED NOT DETECTED IU/mL [facility] Hepatitis C Virus RNA, Quantitative Real Time PCR <1.18 NOT DETECTED NOT DETECTED Log IU/mL [facility] Comment: HCV RNA is not detected. There is no laboratory evidence of a current active HCV infection. This pattern of results (undetectable HCV RNA combined with reactive HCV antibody) could be consistent with a resolved past infection if the clinical history is compatible with previous HCV exposure. However, if no previous exposure is suspected, the reactive HCV antibody could be a biological false positive result. See Note [facility] Comment: This test was performed using Real-Time Polymerase Chain Reaction. Reportable Range: 15 IU/mL to 100,000,000 IU/mL (1.18 Log IU/mL to 8.00 Log IU/mL). The analytical performance characteristics of this assay have been determined by [facility]. The modifications have not been cleared or approved by the FDA. This assay has been validated pursuant to the CLIA regulations and is used for clinical purposes. For more information on this test, go to: http://education.Astley Clarke.Shahiya/faq/PTU78p6 (This link is being provided for informational/ educational purposes only.) This assay is intended for use as an aid in the diagnosis of HCV infection and the management of HCV infected patients undergoing anti-viral therapy. Test Performed at: [email or web address] [id number] [id number] NAYAN BRUNSON DO,MPH 02/12/2022 9:45 AM CDT 02/12/2022 11:38 PM CDT Haydee Hernandez MD LAB - CHEMISTRY [facility] [address] [place] [address] from Last 3 Months or Most Recently Relevant to Health Maintenance Advance Directives * Full Code (Latest Code Status on File) Date Activated Date Inactivated Comments 01/27/2019 4:29 AM 01/28/2019 10:58 AM * Full Code Date Activated Date Inactivated Comments 09/12/2017 7:01 PM 09/15/2017 12:43 PM * Full Code Date Activated Date Inactivated Comments 04/30/2016 3:24 AM 05/03/2016 12:58 AM Care Teams Temperature Regulator Pyrometer Relationship Specialty Start Date End Date Joye Bee PA [address] [place] [address] PCP - General 08/22/22 Joey Bee PA [address] [place] [phone] Physician Nicker And Breaker 08/22/22 Joey Bee PA [address] [place] [phone] Physician Nicker And Breaker 09/15/17
--- OUTSIDE RECORDS SUMMARY | 2025-02-05 11:03 | XMS_ITS | Encounter Summary ---
Author Organization [facility] [employer] Address [address] [place] [address] Care Team Providers Care Cake Mixer Name Role Phone Skyler Renae MD Primary Care Provider [phone] Unknown, Provider Primary Care Provider Unavaila ble Joey Bee Primary Care Provider + Joey Bee Primary Care Provider + Joey Bee Primary Care Provider + Joey Bee Unavailable [phone] Joey Bee Unavailable [phone] Reason for Visit * Reason Onset Date Comments Scheduling 12/06/2015 Left a message w ith patients mother, requesting patient to return call regarding a change of time for her 12/21/15 appointment. Encounter Details Date Type Department Care Team (Late st Contact Info) Description 12/06/2015 Telephone [facility] Maternal & Care [address] [place] [phone] [address] [place] Scheduling (Left a message with patients mother, requesting patient to return call regarding a change of time for her 12/21/15 appointment.) Social History Tobacco Use Types Packs/Day Years Used Date Smoking Tobacco: Every Day Cigarettes Comments:3-4 cigarettes/day Alcohol Use Standard Drinks/Week Comments No 0 (1 standard drink = 0.6 oz pur e alcohol) Comments Yes Sex and Gender Information Value Date Recorded Sex Assigned at Not on file Gender Identity Not on file Sexual Orientation Not on file documented as of this encounter Plan of Treatment Not on file documented as of this encounter Visit Diagnoses Not on filedocumented in this encounter Care Teams Cake Mixer Relationship Specialty Start Date End Date Skyler Renae MD [address] [phone] PCP - General Family Medicine 10/15/15 03/19/16 Unknown, Provider [address] [phone] PCP - General 03/20/16 04/01/16 Joey Bee PA [address] [place] [phone] PCP - General Physician Kennel Helper 09/24/16 09/14/17 Joey Bee PA [address] [place] [phone] PCP - General Physician Kennel Helper 09/15/17 08/21/22 Joey Bee PA [address] [place] [phone] PCP - General 08/22/22 Joey Bee PA [address] [place] [phone] Physician Kennel Helper 08/22/22 [place] [address] [place] [phone] Physician Kennel Helper 09/15/17 documented as of this encounter
--- OUTSIDE RECORDS SUMMARY | 2025-02-05 11:03 | XMS_ITS | Referral Summary ---
Author Organization [facility] [address] Address [address] [place] [address] Care Team Providers Care Electrician Manager Name Role Phone Joey Bee Primary Care Provider + Encounters Date Type Department Care Team Description 01/20/2025 Telephone [facility] Cardiology [address] [facility] [address] [place] [address] Richy Martel NP lab results and recs 01/19/2025 Orders Only [facility] Scanning, Provider 01/17/2025 Results Follow-Up [facility] Cardiology [address] [place] [address] [place] [address] [place] [address] Richy Martel NP 01/16/2025 9:30 AM CDT Ancillary Procedure [facility] Cardiology [address] [place] [address] [place] [address] [place] [address] Palpitations 01/16/2025 8:00 AM CDT Office Visit [facility] Cardiology [address] [place] [address] [place] [address] [place] [address] Richy Martel NP Peripheral venous insufficiency (Primary Dx); Family history of ischemic heart disease; Palpitations 01/05/2025 Telephone [facility] Cardiology [address] [place] [address] [place] [address] [place] [address] Elaine Lamas from Last 3 Months Allergies No known active allergies Medications butalbitaL-aceta minophen 50-325 mg tablet Take 1 tablet by mouth 2 (two) times a day Active bictegravir-emtr icitabine-tenofo vir (Biktarvy) 50-200-25 mg tabletIndication s:HIV infection Take 1 tablet by mouth daily Active ibuprofen (ADVIL,MOTRIN) 800 mg tablet Take 1 tablet (800 mg total) by mouth every 6 (six) hours as needed for pain Active Active Problems Problem Noted Date Diagnosed Date PVD (peripheral vascular disease) 08/04/2024 Social History Tobacco Use Types Packs/Day Years Used Date Smoking Tobacco: Every Day E-cigarettes Tobacco Cessation:Ready to Q uit: Not Asked; Counseling Given: Not Answered Personal Safety Answer Date Recorded Have you ever been in or are you currently in a harmful physical or emotional relationship or is someone making you feel afraid or unsafe? 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 Gender Identity Not on file Sexual Orientation Not on file Last Filed Vital Signs Vital Sign Reading Time Taken Comments Blood Pressure 112/78 01/16/2025 8:13 AM CDT Pulse 76 01/16/2025 8:13 AM CDT Temperature 36.8 C (98.2 F) 06/26/2024 1:14 PM CDT Respiratory Rate 13 06/26/2024 7:30 PM CDT Oxygen Saturation 98% 01/16/2025 8:13 AM CDT Inhaled Oxygen Concentration - - Weight 70.2 kg (154 lb 12.8 oz) 01/16/2025 8:13 AM CDT Height 175.3 cm (5' 9 ) 01/16/2025 8:13 AM CDT Body Mass Index 22.86 01/16/2025 8:13 AM CDT Plan of Treatment Not on file Procedures Procedure Name Priority Date/Time Associated Diagnosis Comments SCAN - LABS 01/18/2025 [facility] - MOBILE CARDIAC TELEMETRY EVENT MONITOR Routine 01/16/2025 9:26 AM CDT Palpitations ECG 12-LEAD Routine 01/16/2025 8:21 AM CDT Peripheral venous insufficiency URINALYSIS AND REFLEX TO MICROSCOPIC AND CULTURE STAT 06/26/2024 7:00 PM CDT from Last 3 Months or Most Recently Relevant to Health Maintenance Results * SCAN - LABS (01/18/2025) us Provider Scanning Edited Result - Final * [facility] Mobile Cardiac Telemetry Event Monitor (01/16/2025 9:26 AM CDT) Anatomical Region Laterality Modality Electrocardiogra phy 01/22/2025 11:5 9 PM CDT Narrative 01/25/2025 4:54 PM CDT [facility] [place] [address] CARDIAC EVENT MONITOR REPORT Patient Name: RO NICOLE J : 1990 (34y 2m) Gender: F Study Date: 01/22/2025 11:59:00 PM Ht(Inch): Wt(Lb): BSA: Tech: Location: [facility] Order Provider: RICHY MARTEL BMI: Ref Provider: RICHY MARTEL PROCEDURES: Event Report: EVENT MONITOR [[id number]]. Enrollment Period: 01/16/25-01/22/25. Monitor Number: ARIANA. Location: [facility]. INDICATIONS: R00.2 Palpitations. FINDINGS: Event Data: Min Rate: 40 BPM Min Rate Timestamp: 2025-01-16 12:18:00 Max Rate: 162 BPM Max Rate Timestamp: 2025-01-17 12:39:00 Mean Rate: 67 BPM Total beats: [id number] SUMMARY: All events are in sinus rhythm. Summary $ReportSummary$. CONCLUSIONS: 1. All events are in sinus rhythm Summary $ReportSummary$. 2. I have reviewed the PDF and all the ECG strips. I agree with the interpretations as detailed in the report. 3. The PDF can be found in the Epic Patient chart. Please go to the Cardiology tab, click on the holter or event exam. Scroll to bottom where the ORDER-LEVEL Documents reside and click the blue link to the pdf. Electronically Signed By: Nadeem Kemp Jr., M.D. 01/25/2025 5:13:19 PM EDT Electronically Signed By: Nadeem Kemp Jr., M.D. 01/25/2025 5:13:19 PM EDT Procedure Note Nadeem Kemp MD PhD - 01/25/2025 [facility] [place] [address] CARDIAC EVENT MONITOR REPORT Patient Name: RO NICOLE J : 1990 (34y 2m) Gender: F Study Date: 01/22/2025 11:59:00 PM Ht(Inch): Wt(Lb): BSA: Tech: Location: [facility] Order Provider: RICHY MARTEL BMI: Ref Provider: RICHY MARTEL PROCEDURES: Event Report: EVENT MONITOR [[id number]]. Enrollment Period: 01/16/25-01/22/25. Monitor Number: ARIANA. Location: [facility]. INDICATIONS: R00.2 Palpitations. FINDINGS: Event Data: Min Rate: 40 BPM Min Rate Timestamp: 2025-01-16 12:18:00 Max Rate: 162 BPM Max Rate Timestamp: 2025-01-17 12:39:00 Mean Rate: 67 BPM Total beats: [id number] SUMMARY: All events are in sinus rhythm. Summary $ReportSummary$. CONCLUSIONS: 1. All events are in sinus rhythm Summary $ReportSummary$. 2. I have reviewed the PDF and all the ECG strips. I agree with theinterpretations as detailed in the report. 3. The PDF can be found in the [facility] Patient chart. Please go to theCardiology tab, click on the holter or event exam. Scroll to bottom where the ORDER-LEVELDocuments reside and click the blue link to the pdf. Electronically Signed By: Nadeem Kemp Jr., M.D. 01/25/2025 5:13:19 PM EDT Electronically Signed By: Nadeem Kemp Jr., M.D. 01/25/2025 5:13:19 PM EDT us Richy Martel NP CV CARDIAC SERVICES PROC EDURES Final Result * ECG 12 lead (01/16/2025 8:21 AM CDT) us Richy Martel NP ECG ORDERABLES Edited R esult - Final * Urinalysis reflex to microscopic and culture Urine, clean voided (06/26/2024 7:00 PM CDT) Color, ur Yellow Yellow Clarity, ur Clear Clear [facility] Specific gravity, ur 1.021 1.003 - 1.030 [facility] pH, urine 6.5 [facility] Comment: Interpretive Data U rine pH is affected by diet, medications, systemic acid-base disturbances, and renal tubular function. pH may affect urinary stone formation. For example, urine pH below 6.0 may help reduce the tendency for calcium phosphate stones and pH greater than 6.0 may reduce the tendency for uric acid stone formation. Source: [facility] [employer] Current Interpretive Data was last revised on 2017 Protein, ur ql Negative Negative [facility] Glucose, ur ql Negative Negative [facility] Ketones, ur Negative Negative [facility] Bilirubin, ur Negative Negative [facility] Blood, ur Negative Negative [facility] Urobilinogen, ur <2.0 <2.0 mg/dL [facility] Nitrite, ur Negative Negative [facility] Leukocyte esterase, ur Negative Negative [facility] UA reflex comment Reflex conditions for microscopic UA and culture not met. [facility] Urine, clean voided 06/26/2024 7:00 PM CDT 06/26/2024 7:09 PM CDT us Johnnie Sibley MD LAB MICROBIOLOGY - GENER AL ORDERABLES Final Result [facility] Department [place] [address] from Last 3 Months or Most Recently Relevant to Health Maintenance Insurance [facility] Care Teams Electrician Manager Relationship Specialty Start Date End Date Joey Bee PA [address] [place] [address] PCP - General Internal Medicine 01/05/25
--- OUTSIDE RECORDS SUMMARY | 2025-02-05 11:03 | XMS_ITS | Encounter Summary ---
Author Organization [facility] Address [address] [place] [address] Phone Care Team Providers Care Electro Optics Engineer Name Role Phone Joey Bee Primary Care Provider + Reason for Visit * Reason Onset Date Comments heart monitor results 01/17/2025 Encounter Details Date Type Department Care Team (Late st Contact Info) Description 01/17/2025 Results Follow-Up [facility] Cardiology [address] [facility] Advanced Medicine 8th [place] [address] [place] [phone] Richy Son NP [address] [address] [address] [place] [address] Social History Tobacco Use Types Packs/Day Years Used Date Smoking Tobacco: Never Assessed Personal Safety Answer Date Recorded Have you ever been in or are you currently in a harmful physical or emotional relationship or is someone making you feel afraid or unsafe? 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 Pt did not have any pre syncopal episodes during monitor. Of note in conversation today, She states she is currently having one right now. She said she is sick with something, she has been throwing up, and has sinus pressure. Advised pt if she was not able to keep any fluids down that risk of dehydration and electrolyte imbalance can cause she pre syncope. Advised she be evaluated in the ER if she does not improve. Pt verb. Understanding. * Telephone Encounter - Isabel Urban RN - 01/27/2025 8:59 AM CDT ----- Message from Richy Son NP sent at 01/27/2025 5:49 AM CDT ----- Normal rhythm. Average heart rate of 67 bpm. No afib/flutter. No pauses or blocks. All triggered events noted her to be in a normal rhythm- this is reassuring. Can we see if she had one of her pre syncope events while wearing the monitor? documented in this encounter Plan of Treatment Not on file documented as of this encounter Visit Diagnoses Not on filedocumented in this encounter Care Teams Electro Optics Engineer Relationship Specialty Start Date End Date Joey Bee PA [address] [place] [address] PCP - General Internal Medicine 01/05/25 documented as of this encounter
--- OUTSIDE RECORDS SUMMARY | 2025-02-05 11:03 | XMS_ITS | Encounter Summary ---
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 EKG in Epic. Requested records from [facility] VERY MANAGER * Telephone Encounter - Elaine Lamas - 01/05/2025 3:38 PM CST Diagnosis/Reason for Appointment: LOW BP HIGH HR 130'S WHILE RESTING TRICUSPID REGURG Referring Physician: XIOMARA SALAS Ref Ph: If Referring MD is not PCP, list specialty: PCP Triage Questions Yes No Who/Where/When/Notes Have you ever been diagnosed with cancer, or undergone cancer treatments? [] [] If 'Yes', Schedule first available with Cardio-Oncology PT HAD CANCER CELLS IN CERV[place] - HAD HYSTERECTOMY If yes where were you treated? Have you ever seen a Accounts Receivable Bookkeeper in an office setting? [x] [] JUL 2024 DR K[facility] IS TRANSFERRING CARE IF SCHEDULING PATIENT WITH MATERNAL Have you had a baby in the last year or are you ? (If yes send to Dr. Bacon for review) [] [] Have you had heart or blood pressure problems during a previous ? (If yes send to Dr. Bacon for review) [] [] Dr. Jennifer Smith Patients only: Are you a hemodialysis or peritoneal dialysis patient? (If yes then patient must be referred from another MD, DO NOT SCHEDULE) [] [] Do you regularly exercise, or play any competitive or recreational sports? (If yes proceed to next question) [] [x] Are your symptoms or concerns associated with this exercise or activity? (If yes schedule in [facility]) [] [] Patient History Questions Yes No Where/When/Notes Have you EVER been hospitalized for ANY cardiac issue? [x] [] [facility] MAY 10, 2024 TRICUSPID REGURG LEG EDEMA Have you ever had any cardiac testing, imaging, or procedures? (Testing - echo, EKG, stress) (Imaging - Cardiac MRI, CT or calcium scoring) (Procedure - Ablation, Cardioversion, CABG, Cath) [x] [] [facility] ECHO EKG VENOUS DOPPLER [facility] EKG ECHO Have you ever had a sleep study? [] [x] Do you have a device? If yes what type? 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) Appointment Date: 01/16/25 Provider: DELONTE Location: [facility] [x] Confirm appt date, time, provider and location. [x] Advise pt to arrive 15- 20 min early. [x] Advise patient to bring medications/list, photo ID and insurance card [x] Advise of New PatientPacket being mailed to them. VERY MANAGER documented in this encounter Plan of Treatment Not on file documented as of this encounter Visit Diagnoses Not on filedocumented in this encounter Care Teams Vice Chairman Relationship Specialty Start Date End Date Joey Bee PA [address] [place] [address] PCP - General Internal Medicine 01/05/25 documented as of this encounter
--- OUTSIDE RECORDS SUMMARY | 2025-02-05 11:03 | XMS_ITS | Clinical Summary ---
Author Organization [facility] [address] Address [address] [place] [address] Care Team Providers Care Rivet Hole Puncher Name Role Phone Joey Bee Primary Care Provider + Allergies No known active allergies Medications [id number]-aceta [...] Diagnosed Date PVD (peripheral vascular disease) 08/04/2024 Encounters Date Type Department Care Team Description 01/20/2025 Telephone [facility] Cardiology [address] [place] [address] Medical Office Building [address] [place] [phone] Richy Martel NP lab results and recs 01/19/2025 Orders Only [facility] Scanning, Provider 01/17/2025 Results Follow-Up [facility] Cardiology [address] [place] [address] Advanced Medicine [address]th [place] [address] [place] [address] Richy Martel NP 01/16/2025 9:30 AM CDT Ancillary Procedure [facility] Cardiology [address] [place] [address] 8th [place] [address] [place] [address] Palpitations 01/16/2025 8:00 AM CDT Office Visit [facility] Cardiology [address] [facility] Medicine 8th [place] [address] [place] [phone] Richy Martel NP Peripheral venous insufficiency (Primary Dx); Family history of ischemic heart disease; Palpitations 01/05/2025 Telephone [facility] Cardiology [address] [facility] 8th [place] [address] [place] [phone] Elaine Lamas from Last 3 Months Family History Medical History Relation Name Comments Heart disease Father Relation Name Status Comments Father Social History Tobacco Use Types Packs/Day Years [...] on file 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 Gender Identity Not on file Sexual Orientation Not on file Obstetrics History Last Filed Vital Signs Vital Sign Reading [...] 01/16/2025 8:13 AM CDT Plan of Treatment Health Maintenance Due Date Last Done Comments Cervical Cancer Screening-Pa p and HPV 1989 Depression Screening 1989 HLA B 5701 Typing 1989 T Spot (quantiferon gold) 1989 HIV+ Chlamydia and Gonorrhea Screening (Rectal) 2000 HIV + Chlamydia and Gonorrhe a Screening (Urine) 2002 HIV+ Chlamydia and Gonorrhea Screening (Throat) 2002 RPR Screening 2002 Varicella Vaccines (1 of 2 - 13+ 2-dose series) 2002 G6PD 2007 Hemoglobin A1C 2007 Hepatitis A Screening 2007 Hepatitis B Screening 2007 Regular Well Visit/Exam 18-64 2007 Hepatitis A Vaccines (1 of 2 - Risk 2-dose series) 2008 Hepatitis B Vaccines (1 of 3 - 19+ 3-dose series) 2008 Pneumococcal vaccine <65 (1 of 2 - PCV) 2008 Zoster Vaccine (1 of 2) 2008 Hepatitis C Screening 03/25/2015 03/25/2014 Lipid Panel 02/12/2023 02/12/2022 Influenza Vaccine (#1) 2024 Proteinuria screening Urinalysis (UA) 06/26/2025 06/26/2024, 03/25/2014 DTaP/Tdap/Td Vaccine (2 - Td or Tdap) 02/19/2026 02/20/2016 HPV Vaccines Aged Out No longer eligi ble based [...] PM CDT Narrative 01/25/2025 4:54 PM CDT [facility] [place] [address] CARDIAC EVENT MONITOR REPORT Patient Name: RO NICOLE J : 1990 (34y 2m) Gender: F Study Date: 01/22/2025 11:59:00 PM Ht(Inch): Wt(Lb): BSA: Tech: Location: [facility] Order Provider: RICHY MARTEL BMI: Ref Provider: RICHY MARTEL PROCEDURES: Event Report: EVENT MONITOR [[id number]]. Enrollment Period: 01/16/25-01/22/25. Monitor Number: ARIANA. Location: [facility]. INDICATIONS: R00.2 Palpitations. FINDINGS: Event Data: Min Rate: 40 BPM Min Rate Timestamp: 2025-01-16 12:18:00 Max Rate: 162 BPM Max Rate Timestamp: 2025-01-17 12:39:00 Mean Rate: 67 BPM Total beats: [id number] SUMMARY: All events are in sinus rhythm. [...] Note Nadeem Kemp MD PhD - 01/25/2025 [facility] Card[facility] [place] [address] [place] [address] CARDIAC EVENT MONITOR REPORT Patient Name: RO NICOLE J : 1990 (34y 2m) Gender: F Study Date: 01/22/2025 11:59:00 PM Ht(Inch): Wt(Lb): BSA: Tech: Location: [facility] Order Provider: RICHY MARTEL BMI: Ref Provider: RICHY MARTEL PROCEDURES: Event Report: EVENT MONITOR [[id number]]. Enrollment Period: 01/16/25-01/22/25. Monitor Number: ARIANA. Location: [facility]. INDICATIONS: R00.2 Palpitations. FINDINGS: Event Data: Min Rate: 40 BPM Min Rate Timestamp: 2025-01-16 12:18:00 Max Rate: 162 BPM Max Rate Timestamp: 2025-01-17 12:39:00 Mean Rate: 67 BPM Total beats: [id number] SUMMARY: All events are in sinus rhythm. Summary $ReportSummary$. CONCLUSIONS: 1. All events are in sinus rhythm Summary $ReportSummary$. 2. I have reviewed the PDF and all the ECG strips. I agree with theinterpretations as detailed in the report. 3. The PDF can be found in the [facility] Patient chart. Please go to theCardiology tab, click on the holter or event exam. Scroll to bottom where the ORDER-LEVELDocuments reside and click the blue link to the pdf. Electronically Signed By: Nadeem Kemp Jr., M.D. 01/25/2025 5:13:19 PM EDT Electronically Signed By: Nadeem Kemp Jr., M.D. 01/25/2025 5:13:19 PM EDT Richy Martel NP CV CARDIAC SERVICES PROC EDURES Final Result * ECG 12 lead (01/16/2025 8:21 AM CDT) Ricyh Martel NP ECG ORDERABLES Edited R esult - Final * Urinalysis reflex to microscopic and culture Urine, clean voided (06/26/2024 7:00 PM CDT) Color, ur Yellow Yellow Clarity, ur Clear Clear [facility] Specific gravity, ur 1.021 1.003 - 1.030 [facility] pH, urine 6.5 [facility] Comment: Interpretive Data U rine pH is affected by diet, medications, systemic acid-base disturbances, and renal tubular function. pH may affect urinary stone formation. For example, urine pH below 6.0 may help reduce the tendency for calcium phosphate stones and pH greater than 6.0 may reduce the tendency for uric acid stone formation. Source: [facility] [employer] Current Interpretive Data was last revised on 2017 Protein, ur ql Negative Negative [facility] Glucose, ur ql Negative Negative [facility] Ketones, ur Negative Negative [facility] Bilirubin, ur Negative Negative [facility] Blood, ur Negative Negative [facility] Urobilinogen, ur <2.0 <2.0 mg/dL [facility] Nitrite, ur Negative Negative [facility] Leukocyte esterase, ur Negative Negative [facility] UA reflex comment Reflex conditions for microscopic UA and culture not met. [facility] Urine, clean voided 06/26/2024 7:00 PM CDT 06/26/2024 7:09 PM CDT Johnnie Sibley MD LAB MICROBIOLOGY - GENER AL ORDERABLES Final Result [facility] Department [place] [address] from Last 3 Months or Most Recently Relevant to Health Maintenance Insurance [facility] Care Teams Rivet Hole Puncher Relationship Specialty Start Date End Date Joey Bee PA [address] [place] [address] PCP - General Internal Medicine 01/05/25
--- OUTSIDE RECORDS SUMMARY | 2025-02-05 11:03 | XMS_ITS | Data Portability ---
Author Organization [place] - [facility], Main Office Address [address] [place] [address] Assessment Encounter Date Assessment Date Assessment LastModified by Organization Details LastModified Time 06/26/2023 06/26/2023 Impression: Patient has 3 year history of diffuse intractable pain in the right shoulder. Her MRI scan 11 months ago looked perfectly normal at that time. differential diagnosis would include chronic rotator cuff tendinitis problems caused by an exacerbated by her poor shoulder posture and scapular dyskinesia or she may have another problem such as significant cervical spine pathology that is referring to the right shoulder girdle. I recommended as the next step obtaining an MRI scan of her cervical spine. I have prescribed a Medrol Dosepak for her and she will hold ibuprofen while she is taking that hopefully that will give her some relief. Will see her back after test. I am reluctant to offer her any additional cortisone injections as too many injections may diminish the integrity of the rotator cuff tendon make her more prone to degenerative tearing over time and they do not seem to be giving her lasting relief. 40 minutes were spent in total care this patient more than half the time spent in [id number] care [email or web address] Not available 06/28/2023 17:04:03 09/30/2023 09/30/2023 HPI: Patient returns. She is here for right trapezius and mid scapular pain. We saw her for this problem in June this year. She had a recent MRI scan that was reviewed which showed no definite pathology within the shoulder joint or rotator cuff area. Therapy was recommended. She did go to several therapy visits and has been doing home exercises. She has not had any improvement of her symptoms. She still gets pain and it is predominantly in the right trapezius and she will also feel it in the supra scapular area. 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 She is also having to move her head and neck in awkward positions to weld. She also wears a helmet while she is welding which is adding stress to neck area. Patient has taking Tylenol threes as well as Flexeril 10 mg to help with her symptoms. She has also been taking ibuprofen 800 mg 3 times a day which she does not feel help. Patient does have a history of hepatitis C but this was treated with antivirals and she has been cleared from that and has been told she has normal liver function. Physical exam: 32-year-old female alert pleasant. She has wvbh-ye-myekbwic ly protracted shoulders. She has active elevation to 135 with mild discomfort. External rotation is to 80 internal rotation is at T12 both of which cause no pain or symptoms. She has normal strength in the shoulder with abduction as well as external rotation. Rotation of the neck causes some minor discomfort at the base the neck. Negative Spurling's maneuver. She has moderate tenderness to palpation of the right trapezius muscle into the muscle belly the supraspinatus. She does state that she will get some degree pain radiating into the upper arm to the elbow. No numbness or tingling in hand. 2+ radial pulse. Impression: 32-year-old female seems to be having symptoms in the right trapezius. This could be emanating from the C-spine or this could be continued muscle pain due to her overuse as a welder journeyman. She has been having symptoms for over 2 years. When we initially saw her June we recommended MRI of the C-spine but this was delayed due to insurance requirement of physical therapy 1st. She has gone through therapy and has had no improvement of the symptoms. We will reorder the MRI scan of her C-spine at this point. I would like her to continue with therapy. She missed several appointments due family issues. I think it is important that this may help quite a bit. She does not feel that the ibuprofen is helping much. She has tried diclofenac in the past and we will try this again to see if this will help any with her symptoms. We will set up the MRI scan and see her back afterwards. [email or web address] Not available 09/30/2023 15:06:08 11/17/2024 11/17/2024 This note is dictated and transcribed by [employer]. Research Program Intern variances may occur. Despite proofreading, typographical errors may occur. Occasional wrong-word or '[id number]' substitutions may have occurred due to the inherent limitations of voice recording. Read the chart carefully and recognize, using context, where substitutions have occurred. [email or web address] Not available 11/21/2024 09:49:16 Plan of Treatment Reminders Order Date Submit Date Provider Last Modified By Organization Details Last Modified Time Details Appointments Follow Up 15 2024 11:00A MARITZA Cohen Not available Not available Not available Lab None recorded. Referral podiatris t referral - pain in bottom of both feet proximal to pip joints . Please eval and treat . Thanks . Has venous insuffici ency[; Please call patient to schedule an appointme nt. Thank you 2023 024 [email or web address] Khanh Brown DPM, [address] [facility], [facility] [address], [place], [address], 10/28/2024 09:38:06 cardiolog ist referral - 33 y/o with venous insuffici ency , wears compressi on stockings . Has right ventricul ar regurgita tion . Please eval and treat. Please call patient to schedule an appointme nt. Thank you 2023 024 [email or web address] [facility], [facility] [place], [address], 01/09/2025 09:09:02 Procedures None recorded. Surgeries None recorded. Imaging US, doppler, arterial - bilateral feet legs up to abdomen 2024 025 [email or web address] [facility] (Radiology), [address] [facility], [place], [address], 01/24/2025 12:42:58 XR, foot, 3 or more view 2024 025 [email or web address] [facility] [place], [facility], [place], [address], 11/21/2024 09:50:29 XR, shoulder, 2 or more view 2022 023 [email or web address] [facility] [place], [address], [place], [address], 06/29/2023 10:20:53 Medication Orders ibuprofen 800 mg tablet [address] [id number], [address] [place], [place], [id number], 01/05/2025 16:13:35 gabapenti n 100 mg capsule [address] [facility][id number], [address] [place], [place], [id number], 09/29/2024 11:13:30 gabapenti n 300 mg capsule [address] [facility] #59706, [address] [place], [place], [id number], 09/29/2024 11:13:30 diclofena c sodium 75 mg tablet,de layed release 2022 023 [email or web address] [facility], [address] [place], [place], [id number], 09/29/2024 10:49:25 Medrol (Santos) 4 mg tablets in a dose pack 2022 023 [email or web address] [facility] #[facility]330, [address] [place], [place], [id number], 09/30/2023 14:40:05 Patient TargetsNo targets recorded. Patient InstructionsNo instructions recorded. 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 Please eval and treat . Thanks . Has venous insufficiency[; Please call patient to schedule an appointment. 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 Has right ventricular regurgitation . Please eval and treat. Please call patient to schedule an appointment. Thank you Referring Physician: Joey Bee [facility], Encounter Date: 09/29/2024 Results Created Date Observation Date Name Description Value Unit Range Abnormal Flag Note LastModifiedBy Organization Detail LastModifiedTime 06/26/20 23 XR, shoul fernanda, 2 or more view No observ ation record ed. [email or web address] [facility] [place] [address], [place], [address], 06/26/2023 11:16:39 03/24/20 24 03/24/2024 imagi ng/di agnos tic resul t No observ ation record ed. [address] [place], [address], 03/25/2024 13:10:32 03/24/20 24 03/24/2024 imagi ng/di agnos tic resul t No observ ation record ed. [address] [place], [address], 03/25/2024 13:10:38 05/27/20 24 05/27/2024 XR, knee, 1 or 2 view No observ ation record ed. [address] [place], [address], 05/27/2024 08:40:07 11/21/19 25 XR, foot, 3 or more view No observ ation record ed. [email or web address] [facility] [place] [address], [place], [address], 11/21/2024 09:50:28 Result Notes None recorded. Problems Name Problem SNOMED Code Status Onset Date Resolution Date Notes Provider Name and Address Organization Details Recorded Time Chronic hepatitis C 917860482 Active Not Available [facility] 3 07:49:12 Pain of right shoulder joint 0182717638677 9100 Active 2021 Not Available [facility] 3 07:49:13 Tendinitis of right rotator cuff 5289419443896 9104 Active 2021 Not Available [facility] 3 07:49:13 Chronic diarrhea of unknown origin 34628269 Active Not Available [facility] 3 07:49:13 Suppressio n of menstruati on Active Not Available [facility] 3 07:49:13 Dysmenorrh ea 840787711 Active Not Available [facility] 3 07:49:13 Left lower quadrant pain 619547529 Active Not Available [facility] 3 07:49:13 Right lower quadrant pain 765035968 Active Not Available [facility] 3 07:49:13 Hematochez ia 649444890 Active Not Available [facility] 3 07:49:13 Abnormal cervical Papanicola ou smear 488011899 Active Not Available [facility] 3 07:49:13 Viral hepatitis C 74212132 Active Not Available [facility] 3 07:49:13 Urinary tract infectious disease 86964379 Active Not Available [facility] 3 07:49:13 Sprain of wrist 11015370 Active Not Available [facility] 3 07:49:13 Threatened miscarriag e in first trimester 06229232 Active Not Available [facility] 3 07:49:13 Irregular periods 91630277 Active Not Available [facility] 3 07:49:13 Human immunodefi ciency virus infection 07393408 Active Not Available [facility] 3 07:49:13 Pain of left shoulder joint 5038355812119 9109 Active 2022 Not Available [facility] 3 07:49:12 Pain of right knee joint 0489257530689 00 Active 2022 Not Available [facility] 3 07:49:13 Neck pain 05065897 Active 2022 Not Available [facility] 3 07:49:13 Pain in both feet 9022725062622 9102 Active 2023 MARITZA Marmolejo [address], [place], [address] , [facility] [place] [facility] 4 11:03:31 Peripheral venous insufficie ncy 85334982 Active 2023 MARITZA Marmolejo [address], [address], [place], [address] , [facility] 4 11:39:52 Metatarsal lilian 41354135 Active 2024 Khanh Brown DPM [address], [address], [place], [address] , [facility] [place] [facility] 5 17:29:19 Upper respirator y infection 13974237 Active 2024 MARITZA Marmolejo [address], [address], [place], [address] , [facility] 5 16:01:49 Nausea 989793744 Active 2024 MARITZA Marmolejo [address], [address], [place], [address] , [facility] 5 16:02:58 Tricuspid valve regurgitat ion 522539175 Active 2024 MARITZA Marmolejo [address], [place], [address] , [facility] 5 15:17:40 Tachycardi a 6067537 Active 2024 MARITZA Marmolejo [address], [place], [address] , [facility] 5 15:24:22 Sore gums 69093781 Active 2024 MARITZA Marmolejo [address], [place], [address] , [employer] [facility] 16:12:42 Substance withdrawal Active [address] [facility] [address], [place], [address] , [facility] 5 15:41:30 Problem Notes None recorded. Procedures Surgical History Date Name Laterality Status Provider Name and Address Organization Details Recorded Time 06/09/20 cardiac catheterization completed Elvia Herrera RN [facility] 09/29/2024 10:50:45 Imaging Results Imaging Date Name Status LastModified by Organiz ation Details LastModified Time 06/26/2023 XR, shoulder, 2 or more view completed [facility] [place] [address], [place], [address], 06/26/2023 11:16:39 03/24/2024 imaging/diag nostic result completed [address] [place], [address], 03/25/2024 13:10:32 03/24/2024 imaging/diag nostic result completed [address] [place], [address], 03/25/2024 13:10:38 05/27/2024 XR, knee, 1 or 2 view completed [address] [place], [address], 05/27/2024 08:40:07 11/21/2024 XR, foot, 3 or more view completed [email or web address] [facility] [place] [address], [place], [address], 11/21/2024 09:50:28 Procedure Notes None recorded. Medical Equipment None Reported. Allergies Allergen ID Allergen Name Allergen Category Reaction Reaction Severity Criticality Documentation Date Start Date Code Code System Note Provider Name and Address Organization Details Recorded Time 01360 oxycodone medicatio n itching Not available Not available 01/07/2023 7804 RxNorm Not Available [facility] 3 06:17:09 Medications Name Sig Start Date Stop Date Status Note LastModified by Organization Details LastModified Time multivitami n tablet 06/26 completed Not Available Not Available Not Available fluoxetine 40 mg capsule TAKE 1 CAPSULE BY MOUTH EVERY DAY IN THE MORNING 09/29 completed Not Available Not Available Not Available cyclobenzap rine 10 mg tablet TAKE 1 TABLET BY MOUTH THREE TIMES DAILY NEEDED FOR MUSCLE SPASM 09/29 completed Not Available Not Available Not Available amoxicillin 500 mg capsule TK 2 CS PO Q 12 H FOR 10 DAYS active Not Available Not Available No t Available methocarbam ol 500 mg tablet TAKE 1 TABLET BY MOUTH THREE TIMES DAILY 09/30 completed Not Available Not Available Not Available promethazin e-DM 6.25 mg-15 mg/5 mL oral syrup TAKE 5 ML BY MOUTH EVERY 4 HOURS FOR 10 DAYS NEEDED active Not Available Not Available No t Available venlafaxine ER 37.5 mg capsule,ext ended release 24 hr 12/25 completed Not Available Not Available Not Available clonidine HCl 0.1 mg tablet FOLLOW PRINTED DIRECTION S. 123 TABLETS= 36 DAY SUPPLY active Not Available Not Available No t Available prednisone 10 mg tablet 09/29 completed Not Available Not Available Not Available venlafaxine ER 75 mg capsule,ext ended release 24 hr 12/25 completed Not Available Not Available Not Available naproxen 375 mg tablet TAKE 1 TABLET BY MOUTH TWICE DAILY active Not Available Not Available No t Available ritonavir 100 mg capsule Take 1 capsule every day by oral route. active Not Available Not Available No t Available clindamycin HCl 300 mg capsule TK 1 C PO Q 6 HOURS 12/25 completed Not Available Not Available Not Available trazodone 50 mg tablet TK 1 T PO HS PRN 12/25 completed Not Available Not Available Not Available polyethylen e glycol 3350 17 gram oral powder packet active Not Available Not Available Not Available Tab-A-Josh tablet 01/04 completed Not Available Not Available Not Available azithromyci n 250 mg tablet TK 2 TS PO AT ONCE TODAY THEN TK 1 T PO ONCE D FOR 4 DAYS active Not Available Not Available No t Available ibuprofen 800 mg tablet TAKE 1 TABLET BY MOUTH THREE TIMES DAILY WITH MEALS 2024 active Not Available Not Available Not Avai lable fluconazole 150 mg tablet TAKE 1 TABLET BY MOUTH 1 TIME 06/26 completed Not Available Not Available Not Available sumatriptan 100 mg tablet 12/09 completed Not Available Not Available Not Available hydrocodone 5 mg-acetamin ophen 325 mg tablet TAKE 1 TABLET BY MOUTH TWICE DAILY NEEDED 09/30 completed Not Available Not Available Not Available meloxicam 15 mg tablet TAKE 1 TABLET BY MOUTH EVERY DAY 09/30 completed Not Available Not Available Not Available promethazin e 12.5 mg tablet Take 1 tablet 4 times a day by oral route as needed. active Not Available Not Available No t Available phenazopyri dine 200 mg tablet TAKE 1 TABLET BY MOUTH THREE TIMES DAILY NEEDED FOR PAIN 09/30 completed Not Available Not Available Not Available ondansetron HCl 4 mg tablet TAKE 1 TABLET BY MOUTH TWICE DAILY NEEDED active Not Available Not Available No t Available famotidine 40 mg tablet 12/09 completed Not Available Not Available Not Available bupivacaine HCl 0.5 % (5 mg/mL) injection solution Take 20 mg by injection route. 07/21 completed Not Available Not Available Not Available prednisone 20 mg tablet TAKE 3 TABLETS BY MOUTH DAILY FOR 5 DAYS 09/30 completed Not Available Not Available Not Available clonazepam 0.5 mg tablet TK 1 T PO BID PRN 12/25 completed Not Available Not Available Not Available penicillin V potassium 500 mg tablet TK 1 T 2 TIMES PER DAY FOR 10 DAYS 01/04 completed Not Available Not Available Not Available topiramate 25 mg tablet TAKE 7 TABLETS BY MOUTH EVERY NIGHT AT BEDTIME 07/21 completed Not Available Not Available Not Available metronidazo le 500 mg tablet TAKE 1 TABLET BY MOUTH EVERY 8 HOURS FOR 10 DAYS 09/30 completed Not Available Not Available Not Available acetaminoph en 300 mg-codeine 30 mg tablet TAKE 1 TABLET BY MOUTH TWICE DAILY NEEDED 09/29 completed Not Available Not Available Not Available Aspir-Low 81 mg tablet,chinmay yed release 01/04 completed Not Available Not Available Not Available ciprofloxac in 500 mg tablet 12/09 completed Not Available Not Available Not Available sulfamethox azole 800 mg-trimetho prim 160 mg tablet TAKE 1 TABLET BY MOUTH EVERY 12 HOURS 09/29 completed Not Available Not Available Not Available peg-electro lyte solution 420 gram oral solution USE DIRECTED BY THE OFFICE active Not Available Not Available No t Available tramadol 50 mg tablet TAKE 1 TABLET BY MOUTH TWICE DAILY NEEDED 09/30 completed Not Available Not Available Not Available acetaminoph en 500 mg tablet TAKE 1 TABLET BY MOUTH EVERY 6 HOURS NEEDED active Not Available Not Available No t Available butalbital- acetaminoph en-caffeine 50 mg-325 mg-40 mg tablet TAKE 1 TABLET BY MOUTH TWICE DAILY NEEDED active Not Available Not Available No t Available ondansetron 8 mg disintegrat ing tablet DISSOLVE 1 TABLET ON THE TONGUE TWICE DAILY NEEDED active Not Available Not Available No t Available prednisone 10 mg tablets in a dose pack Take 1 tab by mouth, 3 times a day for 3 daysTake 1 tab by mouth 2 times a day for 2 daysTake 1 tab by mouth once a day for 1 day 07/21 completed Not Available Not Available Not Available meloxicam 7.5 mg tablet TK 1 T PO QD WF 01/04 completed Not Available Not Available Not Available oxycodone-a cetaminophe n 5 mg-325 mg tablet TAKE 1 TABLET BY MOUTH EVERY 6 HOURS NEEDED 07/11 completed Not Available Not Available Not Available DOK 100 mg capsule TK ONE C PO BID 12/25 completed Not Available Not Available Not Available ropinirole 0.25 mg tablet Take 2 tablets every day by oral route at bedtime. 01/04 completed Not Available Not Available Not Available dicyclomine 20 mg tablet 07/11 completed Not Available Not Available Not Available Kenalog 10 mg/mL suspension for injection In office injection administe red by the provider 07/[address] [facility]: [phone] Not Available Not Available Not Available benzonatate 100 mg capsule TK ONE C PO Q 8 H PRN 12/25 completed Not Available Not Available Not Available doxycycline monohydrate 100 mg capsule TK 1 C PO Q 12 H FOR 14 DAYS 12/25 completed Not Available Not Available Not Available hydrocodone 7.5 mg-acetamin ophen 325 mg tablet TK 1 T PO Q 6 HOURS 01/04 completed Not Available Not Available Not Available cephalexin 500 mg capsule TAKE 1 CAPSULE BY MOUTH EVERY 12 HOURS 06/26 completed Not Available Not Available Not Available oseltamivir 75 mg capsule TK 1 C PO BID FOR 5 DAYS 12/25 completed Not Available Not Available Not Available nitrofurant oin macrocrysta l 100 mg capsule 01/04 completed Not Available Not Available Not Available triamcinolo ne acetonide 0.1 % topical ointment 01/04 completed Not Available Not Available Not Available promethazin e 25 mg tablet TAKE 1/2 TABLET BY MOUTH EVERY 6 HOURS NEEDED FOR NAUSEA 09/29 completed Not Available Not Available Not Available ibuprofen 400 mg tablet TAKE 1 TABLET BY MOUTH THREE TIMES DAILY NEEDED 07/11 completed Not Available Not Available Not Available fluoxetine 10 mg capsule TK 1 C PO QD IN THE MORNING FOR 7 DAYS 12/25 completed Not Available Not Available Not Available butalbital- aspirin-caf feine 50 mg-325 mg-40 mg capsule active Not Available Not Available Not Available gabapentin 300 mg capsule TAKE 1 CAPSULE BY MOUTH THREE TIMES DAILY active Not Available Not Available No t Available omeprazole 20 mg capsule,del ayed release active Not Available Not Available Not Available diclofenac sodium 75 mg tablet,chinmay yed release TAKE 1 TABLET BY MOUTH TWICE DAILY 09/29 completed Not Available Not Available Not Available furosemide 20 mg tablet TAKE 1 TABLET BY MOUTH DAILY NEEDED DIRECTED FOR LEG SWELLING active Not Available Not Available No t Available gabapentin 100 mg capsule 1 cap po in am , 1 cap at noon, 2 caps at bedtime for 7 days . 1 cap qam, 2 caps at noon 2 caps at bedtime for 7 days , then 2 caps in am , 2 caps at noon , 2 caps at bedtime for 7 days; then 2 caps in am , 2 caps at noon , 3 caps at bedtime for 7 days ,. 2 caps 3 caps at noon , 3 caps at bedtime for 7 days active Not Available Not Available No t Available metoprolol succinate ER 25 mg tablet,exte nded release 24 hr TAKE 1 TABLET BY MOUTH EVERY DAY IN THE MORNING FOR FAST HEART RATE active Not Available Not Available No t Available ibuprofen 600 mg tablet TK 1 T PO Q 6 H PRN P 12/25 completed Not Available Not Available Not Available polyethylen e glycol 3350 17 gram/dose oral powder 12/25 completed Not Available Not Available Not Available methylpredn isolone 4 mg tablets in a dose pack FOLLOW PACKAGE DIRECTION S 09/30 completed Not Available Not Available Not Available hydroxyzine HCl 10 mg tablet 12/25 completed Not Available Not Available Not Available ondansetron 4 mg disintegrat ing tablet DISSOLVE 1 TABLET ON THE TONGUE THREE TIMES DAILY NEEDED 09/29 completed Not Available Not Available Not Available fluoxetine 20 mg capsule TK 1 C PO QD IN THE MORNING FOR 7 DAYS 12/25 completed Not Available Not Available Not Available sertraline 50 mg tablet TK 1/2 T PO QD IN THE MORNING FOR 7 DAYS 12/25 completed Not Available Not Available Not Available naproxen 500 mg tablet TK 1 T PO BID WITH FOOD 01/04 completed Not Available Not Available Not Available metoclopram benjamin 10 mg tablet TK 1 T PO AT 6AM AND 1 T AT NOON THE DAY OF EXAM 06/15 completed Not Available Not Available Not Available amoxicillin 875 mg-potassiu m clavulanate 125 mg tablet TAKE 1 TABLET BY MOUTH EVERY 12 HOURS FOR 10 DAYS 09/29 completed Not Available Not Available Not Available hydroxyzine pamoate 25 mg capsule 01/04 completed Not Available Not Available Not Available Sprintec (28) 0.25 mg-0.035 mg tablet 01/04 completed Not Available Not Available Not Available cyclobenzap rine 5 mg tablet TAKE 1 TABLET BY MOUTH TWICE DAILY NEEDED 09/30 completed Not Available Not Available Not Available 11/28 (28) 1 mg-20 mcg (21)/75 mg (7) tablet TK 1 T PO QD 12/25 completed Not Available Not Available Not Available nitrofurant oin monohydrate /macrocryst als 100 mg capsule TK 1 C PO BID TAT 12/02 completed Not Available Not Available Not Available Truvada 200 mg-300 mg tablet TAKE 1 TABLET BY MOUTH EVERY DAY 07/11 completed Not Available Not Available Not Available chlorhexidi ne gluconate 0.12 % mouthwash SWISH AND SPIT 10-15 ML PO BID 12/25 completed Not Available Not Available Not Available prednisone 12/02 completed Not Available Not Available Not Available Tab-A-Josh 1 PO QD 07/11 completed Not Available Not Available Not Available lidocaine (PF) 10 mg/mL (1 %) injection solution In office injection administe red by the provider 12/[address] [facility]: [phone] [phone] [phone] Not Available Not Available Not Available Oysco 500/D 500 mg-5 mcg (200 unit) tablet 12/25 completed Not Available Not Available Not Available calcium 600 mg (as carbonate)- vitamin D3 10 mcg (400 unit) tablet 01/04 completed Not Available Not Available Not Available calcium carb-vitami n D3 ER 600 mg (1,500 mg)-500 unit tablet,ER 24 hr Take 1 tablet twice a day by oral route. 07/11 completed Not Available Not Available Not Available Vinate One 60 mg iron-1 mg tablet active Not Available Not Available Not Available Se-Salvador 19 (with docusate) 29 mg iron-1 mg-25 mg tablet Take 1 tablet every day by oral route. active Not Available Not Available No t Available ritonavir 100 mg tablet TAKE 1 TABLET BY MOUTH EVERY DAY 07/11 completed Not Available Not Available Not Available Plus (calcium carbonate) 27 mg iron-1 mg tablet active Not Available Not Available Not Available Prezista 800 mg tablet TAKE 1 TABLET BY MOUTH ONCE DAILY active Not Available Not Available No t Available Moderiba 200 mg tablet TAKE 3 TABLETS (600 MG) BY ORAL ROUTE IN THE AM AND TAKE 2 TABLETS IN PM 07/11 completed Not Available Not Available Not Available Pennsaid 20 mg/gram/act uation (2 %) topical soln in metered-dos e pump 07/21 completed Not Available Not Available Not Available Prezcobix 800 mg-150 mg tablet Take 1 tablet every day by oral route. 02/18 completed Not Available Not Available Not Available Viekira XR 3 TABLETS DAILY 07/11 completed Not Available Not Available Not Available Biktarvy 50 mg-200 mg-25 mg tablet TAKE 1 TABLET BY MOUTH EVERY DAY active Not Available Not Available No t Available Vitals Date Recorded Body height Provider Name an d Address Organization Details Last Updated DateTime 06/26/2023 175.26 cm CAROL Abreu [place] - [facility] [employer] [facility] 06/26/2023 11:15:21 Date Recorded Body height Body mass index (BMI) Body weight Provider Name and Address Organization Details Last Updated DateTime 09/30/2023 167.64 cm 22.4 kg/m2 72667.34 g Jenn Vargas [facility] [email or web address] [facility] 09/30/2023 14:47:35 Date Recorded Body height Body mass index (BMI) Body weight Body temperature Heart rate Oxygen saturation Oxygen saturation in Arterial blood by Pulse oximetry Systolic blood pressure Diastolic blood pressure Provider Name and Address Organization Details Last Updated DateTime 4 167.64 cm 26.1 kg/m2 31091.9 6 g 97.9 [degF] 70 /min 98 % 98 % 94 mm[Hg] 64 mm[Hg] Elvia Herrera RN [facility] [email or web address] [facility] 4 10:52:15 Date Recorded Body height Body mass index (BMI) Body weight Heart rate Respiratory rate Oxygen saturation Oxygen saturation in Arterial blood by Pulse oximetry Systolic blood pressure Diastolic blood pressure Provider Name and Address Organization Details Last Updated DateTime 5 167.64 cm 26.1 kg/m2 93313.9 6 g 75 /min 14 /min 99 % 99 % 125 mm[Hg] 89 mm[Hg] Yvette Montague [facility] [employer] [facility] 5 16:33:47 Date Recorded Body height Body temperature Oxygen saturation Oxygen saturation in Arterial blood by Pulse oximetry Heart rate Body mass index (BMI) Body weight Systolic blood pressure Diastolic blood pressure Provider Name and Address Organization Details Last Updated DateTime 5 167.64 cm 97.7 [degF] 98 % 98 % 65 /min 25.4 kg/m2 35411.3 6 g 108 mm[Hg] 70 mm[Hg] David Smith RN [facility] [employer] [facility] 5 16:04:03 Social History Question Answer Notes LastModified by Organizat ion Details LastModified Time Tobacco Smoking Status Current Every Day Smoker Not Available [employer] 01/07/2023 06:05:02 What Is Your Level Of Alcohol Consumption? None Information not available 11/17/2024 If You Are , What Was Your Level Of Alcohol Consumption Prior To ? None Information not available 11/17/2024 What Is Your Level Of Caffeine Consumption? Occasional Information not available 11/17/2024 What Was The Date Of Your Most Recent Tobacco Screening? 11/17/2024 Information not available 11/17/2024 How Much Tobacco Do You Smoke? 0.5 PPD [id number] Information not available 01/07/2023 Do You Use Any Illicit Or Recreational Drugs? No Information not available 11/17/2024 Has Tobacco Cessation Counseling Been Provided? No Information not available 11/17/2024 How Many Years Have You Smoked Tobacco? 17 [id number] Information not available 01/07/2023 Do You Or Have You Ever Used Any Other Forms Of Tobacco Or Nicotine? No Information not available 11/17/2024 Sex: Unknown Functional Status None recorded. Mental Status None recorded. Family History Relationship Description Onset Age of this Age Resolved Age Notes LastModified by Organization Details LastModified Time Father Heart disease [id number] Not available 01/07/2023 06:06:36 Unspecified Relation Family history of malignant neoplasm [id number] Not available 01/07/2023 06:06:36 Mother Hypertensive disorder [id number] Not available 01/07/2023 06:06:36 Notes:hx of breast cancer on mothers side- 2 aunts Medical History Condition Response HEART DISEASE/HEART PROBLEMS Y AIDS/HIV Y VASCULAR DISEASE Y HEPATITIS / LIVER DISEASE Y Gynecological HistoryNo gynecological history recorded. Obstetrics History GPAL:G 0 P 0 0 0 0 Past Encounters Encounter ID Performer Location Encounter Start Date Encounter Closed Date Diagnosis/Indication Diagnosis SNOMED-CT Code Diagnosis ICD10 Code Diagnosis Note [id number] [facility] [address] [place] [address] 07/11/2021 00:00:00 07/11/2021 12:14:22 [id number] [facility] [address] [place] [address] 12/02/2021 00:00:00 12/02/2021 11:39:22 [id number] [facility] [address] [place] [address] 07/21/2022 00:00:00 07/21/2022 12:25:06 [id number] [facility] [address] [place] [address] 08/07/2022 00:00:00 08/07/2022 10:08:12 [id number] Enrico Shrestha MD [facility] [address] [place] [address] 06/26/2023 11:06:58 06/29/2023 10:20:53 Pain of right shoulder joint 8389233212 1052982 M25.511 M54.2 [id number] MARITZA Moise [facility] [address] [place] [address] 09/30/2023 14:27:35 09/30/2023 15:22:36 Pain of left shoulder joint 9596103531 3787643 M25.557 [id number] MARITZA Marmolejo [facility] [address] [facility] y [address]ef[address] [place] [address] 09/29/2024 10:36:39 09/29/2024 11:16:11 Pain in both feet 5937746765 9814490 M79.671 M79.672 Peripheral venous insufficiency 62795229 I87.2 [id number] Khanh Brown DPM [facility] [address] [place] [address] 11/17/2024 16:16:13 11/22/2024 15:55:50 Metatarsalgia 75542586 M77.41 M77.42 as below Pain in both feet 343944 4621 7588724 M79.671 M79.672 discuss treatment options in detailReco mmend Power[employer] orthotics with met paddiscuss ed supportive athletic shoe gearMay continue naproxen- monitor for GI upset symptoms if present. Take medication immediatel [facility] 1 monthx-ray s reviewed with the patient [id number] MARITZA Marmolejo [facility] [place] [address] [place] [address] 01/05/2025 15:52:43 01/05/2025 16:53:35 Pain in both feet 7084506408 5783703 M79.671 M79.672 Peripheral venous insufficiency 67325670 I87.2 Sore gums 35642692 K08.8 9 Health Concerns Section Related Observation LastModified by Organization Detai ls LastModified Time None Recorded Concern Status LastModified by Organization Details LastModified Time None Recorded Advance Directives Directive None Recorded Payers Encounter Date Sequence Insurance Name Policy Number Policy Moseley Covered Member ID Moseley Member ID Guarantor Name 06/26/2023 1 [facility] ON OR AFTER 05/09/21 (MEDICAID REPLACEMENT - HMO) Liz Hurtado [id number] Liz Hurtado 09/30/2023 1 [facility] - DOS ON OR AFTER 21 (MEDICAID REPLACEMENT - HMO) Liz Hurtado [id number] Liz Hurtado 09/29/2024 1 MED[place]ID[place]: [facility] OF PUBLIC AID Liz Hurtado [id number] Liz Hurtado 11/17/2024 1 [facility] - DOS ON OR AFTER 2020 - DUAL ELIGIBLE (MEDICARE REPLACEMENT/AD VANTAGE - HMO) Liz Hurtado [id number] iLz Hurtado 01/05/2025 1 [facility] - DOS ON OR AFTER 2020 - DUAL ELIGIBLE (MEDICARE REPLACEMENT/AD VANTAGE - HMO) Liz Hurtado [id number] Liz Hurtado Notes Date Note Type Note Provider Name and Address Organization Details Recorded Time 06/26/2023 text/html Patient is a 32-year-old female who presents for evaluation of her right shoulder. She has had symptoms for 3 years. She is here for 2nd opinion. She states she has had 3 cortisone shots in the right shoulder thus far. The last injection was in November of 2019 to and after that she could not move the shoulder for about a week then that would help her about 2 or 3 months. During that time her pain which had been 10/10 is down to 6 or 7/10. Her pain is diffuse. She has anterior shoulder pain pain lateral deltoid to the elbow pain in the superior right trapezius area and posteriorly in the region the scapula. Her pain is made worse by turning the steering wheel reaching up high pulling something or if she sleeps on the right shoulder too long. She has been taking ibuprofen 800 mg twice daily and Tylenol No. 3 and Flexeril for pain. She does have a history of using diclofenac in the past also. She had physical therapy as well. An MRI scan was obtained on 07/28/2022 and I reviewed the images and I agree with the radiologist's interpretation that there are no abnormalities. I reviewed the images with the patient today. She denies any numbness or tingling. Her past medical history is reviewed. She does have history of HIV infection and it is being treated by Dr. Cohen and her viral load has been undetectable. History of chronic hepatitis C infection. 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 Enrico Shrestha MD [address], [facility] [address], [place], [address], [employer] 06/28/2023 17:04:21 09/29/2024 text/html right ventricula r regurg, venous insufficiency. 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 pain in bottom of feet . . her ex , Johan Yao set her up , tested positive , so she lost the kids to him . has a new fiancee' MARITZA Marmolejo [address], [address], [place], [address], [employer] 10/06/2024 13:10:01 11/17/2024 text/html . Patient is a 34-year-old female she presents the office with complaints of foot pain to both feet. Patient states her pain is under the metatarsal heads bilaterally she denies any recent injury she states when she is walking she has the pain. Patient states when she is off her foot it does not hurt she states this has been ongoing for couple months. Patient has been on naproxen she states this does help to alleviate discomfort. Patient denies any other complaints. Khanh Brown DPM [address], [address], [place], [address], [employer] 11/21/2024 09:52:11 01/05/2025 text/html has not been abl e to get in to see anybody MARITZA Marmolejo [address] [facility], [facility] [address], [place], [address], [place] [facility] 01/09/2025 21:58:16 OBGyn Episode No OBEpisode recorded.
--- OUTSIDE RECORDS SUMMARY | 2025-02-05 11:03 | XMS_ITS | CONTINUITY OF CARE DOCUMENT ---
Author Name jim fernandez Address Unknown Organization [place] [facility] Address [address] [facility] [address] [place] [address] Phone [phone] Care Team Providers Care Regional Training Manager Name Role Phone Rl Zavala MD Unavailable [phone] ARMANI KUMAR MD Unavailable [phone] ARMANI KUMAR MD Unavailable PROBLEMS Condition Status Date Provider Notes Cardiology examination active Jane Ventim iglia [employer] SE[employer] BLOWER Edema, peripheral active Jane Ventimiglia [employer] SE[employer] BLOWER HIV infection active Jane Ventimiglia E[employer] SECTION BLOWER PTSD active Jane Ventimiglia E[employer] SECTION BLOWER Family hx of myocardial infa rction (NC), premature active Jane Ventimiglia [employer] SE[employer] BLOWER Shortness of breath active Jane Ventimigl ia [employer] SE[employer] BLOWER Venous insufficiency, bilateral - GSV active 1 Rl Zavala MD ENCOUNTERS Date Type Provider Location Encounter Diag nosis - In-person encounter Office Visit Rl Zavala MD [facility] Venous insufficiency , bilateral - GSV - In-person encounter Office Visit Rl Zavala MD [place] [facility] Cardiology examinationEdema, peripheralHIV infectionPTSDFamily hx of myocardial infarction ([place]), prematureShortness of breath VITAL SIGNS Date Observation Value Provider Body Mass Index (Ratio) 25.40 kg/m2 Jesus Snider blood pressure, cuff size regular Gilbert Nixon blood pressure, diastolic 68 mm[Hg] Gilbert hoover [place] blood pressure, systolic 114 mm[Hg] Diogenes grady [place] oxygen saturation, oximetry 97 % Dora [place] pulse rate 75 /min Dora [place] respiratory rate E&M 12 /min Dora [place] weight E&M 172 [lb_av] Dora [place] height E&M 69 [in_i] Dora [place] Body Mass Index (Ratio) 23.77 kg/m2 Jesus Snider blood pressure, diastolic -1 mm[Hg] Vidya nkLog blood pressure, systolic 108 mm[Hg] Meri kLog blood pressure, diastolic 78 mm[Hg] Daryl rret blood pressure, systolic 108 mm[Hg] Delvis howe pulse rate 61 /min Ryan y height E&M 69 [in_i] Ryan y blood pressure, cuff size regular Daryl [facility] respiratory rate E&M 16 /min Ryan weight E&M 161 [lb_av] Ryan y ALLERGIES Allergy Name Onset Date Reaction Criticality Status OXYCODONE Low Criticality active HISTORY OF MEDICATION USE Medication Status Instructions Dates Provider Indications Com ments furosemide 20 mg tablet active Take 1 tablet by mouth once a day as needed as directed - Needed for leg swelling Feli Spencer acetaminophen-c odeine 300-30 mg tablet active Take 1/2 tablet by mouth three times a day for pain for 5 days Biktarvy 50-200-25 mg tablet active Take 1 tablet by mouth once a day fluoxetine 40 mg capsule active Take 1 capsule by mouth once a day furosemide 20 mg tablet completed TAKE 1 TABLET BY MOUTH DAILY NEEDED- Needed for leg swelling - Feli Spencer butalbital-acet aminophen-caff 50-325-40 mg tablet active Take as needed ibuprofen 800 mg tablet active Take as needed ondansetron 4 mg tablet,disinteg rating active Take as needed Ryan SOCIAL HISTORY Date Observation Value Provider personal history of marijuana use no Rl Zavala MD drug use no Rl Zavala MD alcohol use no Rl Zavala MD cigarette use yes Rl Zavala MD smoking status Former smoker Rl Zavala MD personal history of marijuana use no Jane Ventimiglia [employer]OWER drug use no Jane Ventimig linda EIGHT SECTION BLOWER alcohol use no Jane Ventimig linda EIGHT SECTION BLOWER cigarette use yes Ryan [place] ay smoking status Former smoker Ryan rday FAMILY HISTORY Family Member Condition Full Sister CAD female <65 INSURANCE PROVIDERS Payer name Policy type / Coverage type [place] red republican ID [facility] [id number] [facility] Medicaid 3 [id number] ADVANCE DIRECTIVES Name Date DISCUSSED - NO DECISION MADE TREATMENT PLAN Date Name Performer Telehealth: H er updated medication list for this problem includes: Furosemide 20 Mg Tablet (Furosemide) ..... Take 1 tablet by mouth once a day as needed as directed - needed for leg swelling Rl Zavala MD Telehealth Rl Zavala MD Telehealth Rl Zavala MD Telehealth Rl Zavala MD Telehealth:Venous du plex C ONCLUSIONS: 1 . No evidence of a deep vein thrombosis of the lower extremities bilaterally. 2 . Significant venous insufficiency of the great saphenous vein bilaterally Rl Zavala MD Cardiology: H er updated medication list for this problem includes: Furosemide 20 Mg Tablet (Furosemide) ..... Take 1 tablet by mouth once a day as needed as directed - needed for leg swelling Messi Snider Cardiology:Echo from [place] indicated normal EF, trivial MR and mild TR. Venous duplex revealed insufficencny of GSV Bilat. Reports no relief from support stockings. We will [facility] Messi Snider Cardiology Janemagdalena Pickens ia [facility] Cardiology Janemagdalena Pickens ia [facility] Cardiology:Patient r eports shortness of breath with activity that is unusual for her S he is concerned as significant family history of CAD/CHF W ill obtain echo, labs and CXR from [place] If no suggestion of CHF, may need stress test to r/o ischemia H er updated medication list for this problem includes: Furosemide 20 Mg Tablet (Furosemide) ..... Take 1 tablet by mouth daily as needed- needed for leg swelling Jane Barrientos [facility] Cardiology:patient h as bilateral LE edema worse with standing S he has been using compression and lasix with little relief S he had recent hospital stay at [place] and will obtain those records W ill do standing venous doppler as concern is for venous insufficiency. Jane Callemohitrodri [facility] Date Name PROTHROMBIN TIME WIT H INR LIPID PANEL CBC (INCLUDES DIFF/P LT) BASIC METABOLIC PANE L W/EGFR Venogram w/ IVUS - S [facility] Venous Doppler Bilat eral LE - Reflux HISTORY OF PROCEDURES Procedure Date Procedure Name Provider Procedure Notes S tatus Complex e/m visit add on Rl Zavala MD completed EKG Rl Zavala MD completed
--- NOTE | 2025-02-05 11:38 | ECG_ITS ---
Test Date: 2025-02-05 11:50:05 Measurements Intervals [place] Rate: 81 P: 23 NM: 113 QRS: 73 QRSD: 88 T: 59 QT: 344 QTc: 401 Interpretive Statements SINUS RHYTHM WITH SINUS ARRHYTHMIA WITH SHORT NM INTERVAL ABNORMAL ECG Electronically Signed On 02-05-2025 14:23:17 CDT by Naseem Mcgowan M.D.
[2025-02-05 12:21] LABS: Basophils Percent Auto 0.3 % (0.2-1.2); Eosinophils Absolute Auto 0.1 K/mm3 (0-0.3); Eosinophils Percent Auto 1.4 % (0-4.4); Hemoglobin 12.5 g/dL (12.0-15.0); Immature Granulocyte Absolute 0.02 K/mm3 (0.00-0.031); Immature Granulocyte Percent A 0.2 % (0-0.5); Lymphocytes Absolute Auto 2.12 K/mm3 (0.9-3.2); Mean Corpuscular HGB Conc 35.7 g/dl (32-36); Mean Corpuscular Hemoglobin 30.8 pg (26-34); Mean Corpuscular Volume 86.2 fl (80-100); Mean Platelet Volume 9.1 fl (7.4-10.4); Monocytes Absolute Auto 0.5 K/mm3 (0.1-0.6); Monocytes Percent Auto 5.7 % (2.6-8.5); Neutrophils Absolute Auto 6.4 K/mm3 (1.3-6.7); Neutrophils Percent Auto 69.4 % (45.5-73.1); Platelet Count Result 332 k/mm3 (150-375); Red Blood Count 4.06 M/mm3 (4.2-5.4); Red Cell Distribution Width 13.5 % (11.5-14.5); White Blood Count 9.2 K/mm3 (4.5-10.0)
[2025-02-05 12:30] LABS: Alanine Aminotransferase 23 U/L (6-35); Albumin Level 4.8 g/dL (3.5-5.1); Alkaline Phosphatase 93 U/L (38-126); Anion Gap 12 mmol/L (4-12); Aspartate Amino Transferase 21 U/L (14-36); Bilirubin,Total 0.4 mg/dL (0.2-1.3); Blood Urea Nitrogen 8 mg/dL (7-17); Calcium 9.6 mg/dL (8.4-10.2); Carbon Dioxide 26 mmol/L (22-30); Chloride 103 mmol/L (98-107); Estimated CRCL calculation 120 ml/min; Estimated Glomerular Filt Rate > 60; Glucose 100 mg/dL (65-110); Potassium 3.3 mmol/L (3.4-5.0); Sodium 141 mmol/L (137-145)
[2025-02-05 12:35] LABS: Prothrombin Time 13.9 Seconds (11.1-14.7)
[2025-02-05 12:36] LABS: Partial Thromboplastin Time 25.5 Seconds (22.3-36.8)
[2025-02-05 12:42] LABS: Troponin I < 0.012 ng/mL (0.000-0.034)
--- OUTSIDE RECORDS SUMMARY | 2025-02-05 13:28 | XMS_ITS | Clinical Summary ---
Author Organization [facility] [employer] Address [address] [place] [address] Care Team Providers Care Medical Laboratory Specialist Name Role Phone Joey Bee Primary Care Provider + Joey Bee Unavailable [phone] Joey Bee Unavailable [phone] Source Comments [facility] Affiliates and Associated Physician Practices is amultiple site organization consisting of ambulatory clinics and hospital sitesin [place], [place], [place] and [place]. This disclosure is being madepursuant to the Care Everywhere program and may not contain all information available regarding this patient. Last updated 18.[facility] [employer] Allergies Active Allergy Reactions Criticality Noted Date [...] 1 TABLET BY MOUTH EVERY DAY Active dirneckwgt-toxkhiw-es ffeine (FIORINAL) 50-325-40 MG capsule butalbital-aspirin- caffeine [...] Dye Gastroenterology Dr. Bakari Saini Infectious Disease [facility] 07/2019 Problem Noted Date Diagnosed Date Abnormal [...] C RNA QUANTITATIVE (02/12/2022 9:45 AM CDT) [facility] Hepatitis C Virus RNA, Quantitative Real [...] of this assay have been determined by [employer]. The modifications have not been cleared or approved by the FDA. This assay has been validated pursuant to the CLIA regulations and is used for clinical purposes. For more information on this test, go to: http://education.Shopetti.Crzyfish/faq/YHH51i4 (This link is being provided for informational/ educational purposes only.) This assay is intended for use as an aid in the diagnosis of HCV infection and the management of HCV infected patients undergoing anti-viral therapy. Test Performed at: [employer] [facility] [id number] [id number] NAYAN BRUNSON DO,MPH 02/12/2022 9:45 AM CDT 02/12/2022 11:38 PM CDT Haydee Hernandez MD LAB - CHEMISTRY [address] [address] [place] [address] from Last 3 Months or Most Recently Relevant to Health Maintenance Advance Directives * Full Code (Latest Code Status on File) Date Activated Date Inactivated Comments 01/27/2019 4:29 AM 01/28/2019 10:58 AM * Full Code Date Activated Date Inactivated Comments 09/12/2017 7:01 PM 09/15/2017 12:43 PM * Full Code Date Activated Date Inactivated Comments 04/30/2016 3:24 AM 05/03/2016 12:58 AM Care Teams Medical Laboratory Specialist Relationship Specialty Start Date End Date Joey Bee PA [address] [place] [address] PCP - General 08/22/22 Joey Bee PA [address] [place] [phone] Physician Professor Of Oceanography 08/22/22 Joey Bee PA [address] [place] [phone] Physician Professor Of Oceanography 09/15/17
--- OUTSIDE RECORDS SUMMARY | 2025-02-05 13:28 | XMS_ITS | CONTINUITY OF CARE DOCUMENT ---
Author Name jim fernandez Address Unknown Organization [facility] Address [address] [place] [address] Phone [phone] Care Team Providers Care News Camera Person Name Role Phone Rl Zavala MD Unavailable [phone] ARMANI KUMAR MD Unavailable ARMANI KUMAR MD Unavailable PROBLEMS Condition Status Date Provider Notes Cardiology examination active Jane Ventim iglia LEISURE TRAVEL AGENT Edema, peripheral active Jane Ventimiglia LEISURE TRAVEL AGENT HIV infection active Jane Ventimiglia LEISURE TRAVEL AGENT PTSD active Jane Ventimiglia LEISURE TRAVEL AGENT Family hx of myocardial infa rction ([place]), premature active Jane Ventimiglia LEISURE TRAVEL AGENT Shortness of breath active Jane Ventimigl ia LEISURE TRAVEL AGENT Venous insufficiency, bilateral - GSV active 1 Rl Zavala MD ENCOUNTERS Date Type Provider Location Encounter Diag nosis - In-person encounter Office Visit Rl Zavala MD [facility] Venous insufficiency , bilateral - GSV - In-person encounter Office Visit Rl Zavala MD [facility] Cardiology examinationEdema, peripheralHIV infectionPTSDFamily hx of myocardial infarction ([place]), prematureShortness of breath VITAL SIGNS Date Observation Value Provider Body Mass Index (Ratio) 25.40 kg/m2 Jesus Snider blood pressure, cuff size regular Gilbert Nixon blood pressure, diastolic 68 mm[Hg] Gilbert hoover [place] blood pressure, systolic 114 mm[Hg] Diogenes grady [place] oxygen saturation, oximetry 97 % Dora [place] pulse rate 75 /min Dora [place] respiratory rate E&M 12 /min Dora [place] weight E&M 172 [lb_av] Dora [place] height E&M 69 [in_i] Dora [place] Body Mass Index (Ratio) 23.77 kg/m2 Jesus Snider blood pressure, diastolic -1 mm[Hg] Vidya nkLog blood pressure, systolic 108 mm[Hg] Meri kLog blood pressure, diastolic 78 mm[Hg] Daryl rret blood pressure, systolic 108 mm[Hg] Delvis howe pulse rate 61 /min Ryan y height E&M 69 [in_i] Ryan y blood pressure, cuff size regular Daryl [facility] respiratory rate E&M 16 /min [...] DAILY NEEDED- Needed for leg swelling - Feil Spencer butalbital-acet aminophen-caff 50-325-40 mg tablet active [...] history of marijuana use no Jane Ventimiglia LEISURE TRAVEL AGENT drug use no Jane Ventimig linda LEISURE TRAVEL AGENT alcohol use no Jane Ventimig linda LEISURE TRAVEL AGENT cigarette use yes Ryan [place] ay smoking status Former smoker Ryan rday FAMILY HISTORY Family Member Condition Full Sister CAD female <65 INSURANCE PROVIDERS Payer name Policy type / Coverage type [place] red democrat ID [facility] [id number] [facility] Medicaid 3 [id number] ADVANCE DIRECTIVES Name Date DISCUSSED - NO [...] directed - needed for leg swelling Messi Sndier Cardiology:Echo from [place] indicated normal EF, trivial MR and mild TR. Venous duplex revealed insufficencny of GSV Bilat. Reports no relief from support stockings. We will schedule vennography with [facility] Messi Snider Cardiology Janemagdalena Pickens ia [facility] Cardiology Janemagdalena Pickens ia [facility] Cardiology:Patient r eports shortness of breath with activity that is unusual for her S he is concerned as significant family history of CAD/CHF W ill obtain echo, labs and CXR from [place] If no suggestion of CHF, may need stress test to r/o ischemia H er updated medication list for this problem includes: Furosemide 20 Mg Tablet (Furosemide) ..... Take 1 tablet by mouth daily as needed- needed for leg swelling Jane Barrientos [facility] Cardiology:patient h as bilateral LE edema worse with standing S he has been using compression and lasix with little relief S he had recent hospital stay at [place] and will obtain those records W ill do standing venous doppler as concern is for venous insufficiency. Jane Callemohitrodri [facility] Date Name PROTHROMBIN TIME WIT H [...]
--- OUTSIDE RECORDS SUMMARY | 2025-02-05 13:28 | XMS_ITS | Encounter Summary ---
Author Organization [facility] Address [address] [place] [address] Phone Care Team Providers Care Criminal Intelligence Analyst Name Role Phone Joey Bee Primary Care Provider + Reason for Visit * Reason Onset Date Comments heart monitor results 01/17/2025 Encounter Details Date Type Department Care Team (Late st Contact Info) Description 01/17/2025 Results Follow-Up [facility] Cardiology [address] 8th [place] [address] [place] [phone] Richy Son NP [address] [place] [address] Social History Tobacco Use Types [...] on file Legal Sex Female 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
--- OUTSIDE RECORDS SUMMARY | 2025-02-05 13:28 | XMS_ITS | Referral Summary ---
Author Organization [facility] [address] Address [address] [place] [address] Care Team Providers Care Installer Helper Name Role Phone Joey Bee Primary Care Provider + Encounters Date Type Department Care Team Description 01/20/2025 Telephone [facility] Cardiology [address] Medical Office Building [address] [place] [address] Richy Martel NP lab results and recs 01/19/2025 Orders Only [facility] Scanning, Provider 01/17/2025 Results Follow-Up [facility] Cardiology [address] [place] [address] [place] [address] [place] [address] Richy Martel NP 01/16/2025 9:30 AM CDT Ancillary Procedure [facility] Cardiology [address] [place] [address] [place] [address] [place] [address] Palpitations 01/16/2025 8:00 AM CDT Office Visit [facility] Cardiology [address] [place] [address] [place] [address] [place] [address] Richy Martel NP Peripheral venous insufficiency (Primary Dx); Family history of ischemic heart disease; Palpitations 01/05/2025 Telephone [facility] Cardiology [address] [place] [address] [place] [address] [place] [address] Elaine Lamas from Last 3 Months Allergies [...] on file 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 Enrollment Period: 01/16/25-01/22/25. Monitor Number: ARIANA. Location: [facility]. INDICATIONS: R00.2 Palpitations. FINDINGS: Event Data: Min Rate: 40 BPM Min Rate Timestamp: 2025-01-16 12:18:00 Max Rate: 162 BPM Max Rate Timestamp: 2025-01-17 12:39:00 Mean Rate: 67 BPM Total beats: [id number] SUMMARY: All events are in sinus rhythm. [...] 01/25/2025 5:13:19 PM EDT Electronically Signed By: Ndaeem Kemp Jr., M.D. 01/25/2025 5:13:19 PM EDT Procedure Note Nadeem Kemp MD PhD - 01/25/2025 [facility] [place]iac [place] [address] CARDIAC EVENT MONITOR REPORT Patient Name: RO NICOLE J : 1990 (34y 2m) Gender: F Study Date: 01/22/2025 11:59:00 PM Ht(Inch): Wt(Lb): BSA: Tech: Location: [facility] Order Provider: RICHY MARTEL BMI: Ref Provider: RICHY MARTEL PROCEDURES: Event Report: EVENT MONITOR [[id number]]. Enrollment Period: 01/16/25-01/22/25. Monitor Number: ARIANA. Location: [facility]. INDICATIONS: R00.2 Palpitations. FINDINGS: Event Data: Min Rate: 40 BPM Min Rate Timestamp: 2025-01-16 12:18:00 Max Rate: 162 BPM Max Rate Timestamp: 2025-01-17 12:39:00 Mean Rate: 67 BPM Total beats: [id number] SUMMARY: All events are in sinus rhythm. Summary $ReportSummary$. CONCLUSIONS: 1. All events are in sinus rhythm Summary $ReportSummary$. 2. I have reviewed the PDF and all the ECG strips. I agree with theinterpretations as detailed in the report. 3. The PDF can be found in the [facility] Patient chart. Please go to theCardiology [...] ur Yellow Yellow Clarity, ur Clear Clear [facility] Specific gravity, ur 1.021 1.003 - 1.030 [facility] pH, urine 6.5 [facility] Comment: Interpretive Data U rine pH is affected by diet, medications, systemic acid-base disturbances, and renal tubular function. pH may affect urinary stone formation. For example, urine pH below 6.0 may help reduce the tendency for calcium phosphate stones and pH greater than 6.0 may reduce the tendency for uric acid stone formation. Source: [facility] [email or web address] Current Interpretive Data was last revised on [...] for microscopic UA and culture not met. [facility] Urine, clean voided 06/26/2024 7:00 PM CDT 06/26/2024 7:09 PM CDT us Johnnie Sibley MD LAB MICROBIOLOGY - GENER AL ORDERABLES Final Result [facility] [address] [facility] [place] [address] from Last 3 Months or Most Recently Relevant to Health Maintenance Insurance [facility] Care Teams Installer Helper Relationship Specialty Start Date End Date Joey Bee PA [address] [place] [address] PCP - General Internal Medicine 01/05/25
--- OUTSIDE RECORDS SUMMARY | 2025-02-05 13:28 | XMS_ITS | Encounter Summary ---
Author Organization [facility] Address [address] [place] [address] Phone Care Team Providers Care Economist Research Assistant Name Role Phone Joey Bee Primary Care Provider + Encounter Details Date Type Department Care Team (Late st Contact Info) Description 01/05/2025 Telephone [facility] Cardiology [facility] Advanced Medicine 8th [place] [address] [place] [address] Elaine Lamas Social History Tobacco [...] on file 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 EKG in Epic. Requested records from [facility] TORATE OFFICER * Telephone Encounter - Elaine Lamas - [...] you treated? Have you ever seen a Livery Car Driver in an office setting? [x] [] JUL [...] hospitalized for ANY cardiac issue? [x] [] [facility] MAY 10, 2024 TRICUSPID REGURG LEG EDEMA Have you ever had any cardiac testing, imaging, or procedures? (Testing - echo, EKG, stress) (Imaging - Cardiac MRI, CT or calcium scoring) (Procedure - Ablation, Cardioversion, CABG, Cath) [x] [] [facility] ECHO EKG VENOUS DOPPLER [facility] EKG ECHO Have you ever had a sleep study? [] [x] Do you have a device? If yes what type? 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 Business Systems Lead? ([employer], [employer], [employer]) Appointment Date: 01/16/25 Provider: DELONTE Location: [facility] [x] Confirm appt date, time, provider and location. [x] Advise pt to arrive 15- 20 min early. [x] Advise patient to bring medications/list, photo ID and insurance card [x] Advise of New PatientPacket being mailed to them. TORATE OFFICER documented in this encounter Plan of Treatment Not on file documented as of this encounter Visit Diagnoses Not on filedocumented in this encounter Care Teams Economist Research Assistant Relationship Specialty Start Date End Date Joey Bee PA [address] [place] [address] PCP - General Internal Medicine 01/05/25 documented as of this encounter
--- OUTSIDE RECORDS SUMMARY | 2025-02-05 13:28 | XMS_ITS | Clinical Summary ---
Author Organization [facility] [address] Address [address] [place] [address] Care Team Providers Care Data Processing Manager Name Role Phone Joey Bee Primary [...] Type Department Care Team Description 01/20/[address] [facility] Cardiology [address] [place] [address] Medical Office Building [address] [place] [address] Richy Martel NP lab results and recs 01/19/2025 Orders Only [facility] Scanning, Provider 01/17/2025 Results Follow-Up [facility] Cardiology [address] [place] [address] Advanced Medicine 8th [place] [address] [place] [address] Richy Martel NP 01/16/2025 9:30 AM CDT Ancillary Procedure [facility] Cardiology [address] [place] [address] 8th [place] [address] [place] [address] Palpitations 01/16/2025 8:00 AM CDT Office Visit [facility] Cardiology [address] [facility] [address] 8th [place] [address] [place] [phone] Richy Martel NP Peripheral venous insufficiency (Primary Dx); Family history of ischemic heart disease; Palpitations 01/05/[address] [facility] Cardiology [address] 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 Enrollment Period: 01/16/25-01/22/25. Monitor Number: ARIANA. Location: [facility]. INDICATIONS: R00.2 Palpitations. FINDINGS: Event Data: Min Rate: 40 BPM Min Rate Timestamp: 2025-01-16 12:18:00 Max Rate: 162 BPM Max Rate Timestamp: 2025-01-17 12:39:00 Mean Rate: 67 BPM Total beats: [id number] SUMMARY: All events are in sinus rhythm. [...] 01/25/2025 [facility] Card[place] [address] CARDIAC EVENT MONITOR REPORT Patient Name: RO NICOLE J : 1990 (34y 2m) Gender: F Study Date: 01/22/2025 11:59:00 PM Ht(Inch): Wt(Lb): BSA: Tech: Location: [facility] Order Provider: RICHY MARTEL BMI: Ref Provider: RICHY MARTEL PROCEDURES: Event Report: EVENT MONITOR [[id number]]. Enrollment Period: 01/16/25-01/22/25. Monitor Number: ARIANA. Location: [facility]. INDICATIONS: R00.2 Palpitations. FINDINGS: Event Data: Min Rate: 40 BPM Min Rate Timestamp: 2025-01-16 12:18:00 Max Rate: 162 BPM Max Rate Timestamp: 2025-01-17 12:39:00 Mean Rate: 67 BPM Total beats: [id number] SUMMARY: All events are in sinus rhythm. Summary $ReportSummary$. CONCLUSIONS: 1. All events are in sinus rhythm Summary $ReportSummary$. 2. I have reviewed the PDF and all the ECG strips. I agree with theinterpretations as detailed in the report. 3. The PDF can be found in the [facility] Patient chart. Please go to theCardiology tab, [...] ECG 12 lead (01/16/2025 8:21 AM CDT) Richy Martel NP ECG ORDERABLES Edited R esult - Final * Urinalysis reflex to microscopic and culture Urine, clean voided (06/26/2024 7:00 PM CDT) Color, ur Yellow Yellow Clarity, ur Clear Clear [facility] Specific gravity, ur 1.021 1.003 - 1.030 [facility] pH, urine 6.5 [facility] Comment: Interpretive Data U rine pH is affected by diet, medications, systemic acid-base disturbances, and renal tubular function. pH may affect urinary stone formation. For example, urine pH below 6.0 may help reduce the tendency for calcium phosphate stones and pH greater than 6.0 may reduce the tendency for uric acid stone formation. Source: [facility] Micro Interventional Devices Current Interpretive Data was last revised on 2017 Protein, ur ql Negative Negative [facility] Glucose, ur ql Negative Negative [facility] Ketones, ur Negative Negative [facility] Bilirubin, ur Negative Negative [facility] Blood, ur Negative Negative [facility] Urobilinogen, ur <2.0 <2.0 mg/dL [facility] Nitrite, ur Negative Negative [facility] Leukocyte esterase, ur Negative Negative [facility] UA reflex comment Reflex conditions for microscopic UA and culture not met. [facility] Urine, clean voided 06/26/2024 7:00 PM CDT 06/26/2024 7:09 PM CDT Johnnie Sibley MD LAB MICROBIOLOGY - GENER AL ORDERABLES Final Result [facility] Department [place] [address] from Last 3 Months or Most Recently Relevant to Health Maintenance Insurance [facility] Care Teams Data Processing Manager Relationship Specialty Start Date End Date Joey Bee PA [address] [place] [address] PCP - General Internal Medicine 01/05/25
--- OUTSIDE RECORDS SUMMARY | 2025-02-05 13:28 | XMS_ITS | Encounter Summary ---
Author Organization [facility] Address [address] [place] [address] Care Team Providers Care Seal Delivery Vehicle Officer Name Role Phone Skyler Renae MD Primary Care Provider [phone] Unknown, Provider Primary Care Provider Unavaila ble Joey Bee Primary Care Provider + Joey Bee Primary Care Provider + Joey Bee Primary Care Provider + Joey Bee Unavailable [phone] Joey Bee Unavailable [phone] Reason for Visit * Reason Onset Date Comments Scheduling 12/06/2015 Left a message w ith patients mother, requesting patient to return call regarding a change of time for her 12/21/15 appointment. Encounter Details Date Type Department Care Team (Late st Contact Info) Description 12/06/2015 Telephone [facility] M[facility] Care [address] [place] [id number] Sweetie Okeeef Scheduling (Left a message with patients mother, [...] on filedocumented in this encounter Care Teams Seal Delivery Vehicle Officer Relationship Specialty Start Date End Date Skyler Renae MD [address] [phone] PCP - General Family Medicine 10/15/15 03/19/16 Unknown, Provider [address] [address] PCP - General 03/20/16 04/01/16 Joey Bee PA [address] [place] [phone] PCP - General Physician Pattern Scratcher 09/24/16 09/14/17 Joey Bee PA [address] [place] [phone] PCP - General Physician Pattern Scratcher 09/15/17 08/21/22 Joey Bee PA [address] [place] [phone] PCP - General 08/22/22 Joey Bee PA [address] [place] [phone] Physician Pattern Scratcher 08/22/22 [place] [address] [place] [phone] Physician Pattern Scratcher 09/15/17 documented as of this encounter
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
[2025-02-05 14:07] LABS: D Dimer 0.28 ug/mL (<0.48)
[2025-02-05] MEDS: SODIUM CHLORIDE 0.9% IV 1,000 ML 999 ML IV CONT (14:27)
[2025-02-05] MEDS: diphenhydrAMINE HCl INJ 50 MG/ML VIAL 25 MG IV PUSH (14:28)
[2025-02-05] MEDS: PROCHLORPERAZINE EDISYLATE 10 MG/2 ML VIAL 5 MG IV PUSH (14:28)
[2025-02-05] MEDS: KETOROLAC 15 MG/ML VIAL (*BKC) IV PUSH (14:28)
[2025-02-05] MEDS: POTASSIUM BICARBONATE 25 MEQ TABEF PO (14:29)
== END 2025-02-05 14:57 | disposition home or self-care (01) ==
PROVIDERS: Emergency Provider Student in an Organized Health Care Education/Training Program; PCP Physician Assistant
DX: R51.9 Headache, unspecified (principal); R55 Syncope and collapse; E87.6 Hypokalemia; F11.23 Opioid dependence with withdrawal; I07.1 Rheumatic tricuspid insufficiency; F43.10 Post-traumatic stress disorder, unspecified; Z21 Asymptomatic human immunodeficiency virus [HIV] infection status; F17.210 Nicotine dependence, cigarettes, uncomplicated; Z90.711 Acquired absence of uterus with remaining cervical stump; Z79.899 Other long term (current) drug therapy
CPT/HCPCS: 36415; 80053; 83735; 84484; 85025; 85380; 85610; 85730; 93005; 96361; 96374; 96375; 99284; A9270; J0780; J1200; J1885; J7030

== ENCOUNTER 2025-06-06 05:18 | Emergency (ER) | payer MEDICAID, SELFPAY ==
[2025-06-06] VITALS (18 sets, daily range): BP systolic 111–158; BP diastolic 72–131; PULSE 76–133; RESP 14–37; TEMP 36.6–36.9; O2SAT 97–100
--- NOTE | ~2025-06-06 | XR_ITS ---
EXAMINATION: XR chest 1V portable 06/06/2025 06:22 INDICATION: Chest pain PROCEDURE: AP portable chest COMPARISON: Comparison to multiple prior studies sequentially, with oldest reviewed study dated 09/10. FINDINGS: The lungs are clear. The cardiomediastinal silhouette is within normal limits. There are no pleural effusions. There is no pneumothorax suspected. IMPRESSION: 1: NO ACUTE CARDIOPULMONARY DISEASE. Reviewed, dictated and finalized at location B.
--- NOTE | 2025-06-06 05:19 | ECG_ITS ---
Test Date: 2025-06-06 05:32:11 Measurements Intervals [place] Rate: 128 P: 78 [place]: 142 QRS: 81 QRSD: 84 T: 64 QT: 328 QTc: 479 Interpretive Statements SINUS TACHYCARDIA POSSIBLE RIGHT VENTRICULAR CONDUCTION DELAY Electronically Signed On 06-06-2025 17:23:31 CDT by Quinten Coughlin D.O
--- OUTSIDE RECORDS SUMMARY | 2025-06-06 05:20 | XMS_ITS | Referral Summary ---
Author Organization [facility] [address] Address [address] [place] [address] Care Team Providers Care Corduroy Cutter Operator Name Role Phone Joey Bee Primary Care Provider + Encounters Date Type Department Care Team Description 05/19/2025 11:30 AM CDT - 05/19/2025 11:59 PM CDT Hospital Encounter [facility] [address] [place] [address] 8th [place] [address] Labile blood pressure; Elevated blood pressure reading Discharge Disposition: Discharge to home or self care 05/09/[address] [facility] [address] [place] [address] Medical Office Building [address] [place] [address] Yuri Bermudez, New Referral 05/04/2025 Results Follow-Up [facility] [address] [place] [address] Arina Reardon MD Lipid panel, Lipoprotein a (LPa), D-dimer, quantitative 05/02/2025 12:25 PM CDT Lab [facility] [address] [place] [id number] Family history of heart disease; May-Thurner syndrome 05/02/2025 11:00 AM CDT Office Visit 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); Family history of heart disease; Labile blood pressure; Hypotension, unspecified hypotension type; Elevated blood pressure reading from Last 3 Months Allergies Active Allergy Reactions Criticality Noted Date Comments Amphetamine Rash Medium 03/25/2014 Rash Dextroamphetamine-Amphetamine Hives,Urticaria High 0 05/20/2009 Oxycodone Itching Low 07/03/2017 Medications butalbitaL-aceta minophen 50-325 mg tablet Take 1 tablet by mouth 2 (two) times a day Active bictegravir-emtr icitabine-tenofo vir (Biktarvy) 50-200-25 mg tabletIndication s:HIV infection Take 1 tablet by mouth daily Active ibuprofen (ADVIL,MOTRIN) 800 mg tablet Take 1 tablet (800 mg total) by mouth every 6 (six) hours as needed for pain Active rosuvastatin (CRESTOR) 5 mg tablet Take 1 tablet (5 mg total) by mouth daily 90 tablet 3 05/04/2025 Active Active Problems Problem Noted Date Diagnosed [...] on file Legal Sex Female 8:59 PM [employer] Gender Identity Not on file Sexual Orientation Not on file Last Filed Vital Signs Vital Sign Reading Time Taken Comments Blood Pressure 87/57 05/02/2025 11:34 AM CDT YMPTOMATIC Pulse 61 05/02/2025 11:21 AM CDT Temperature 36.8 C (98.2 F) 06/26/2024 1:14 PM CDT Respiratory Rate 13 06/26/2024 7:30 PM CDT Oxygen Saturation 98% 05/02/2025 11:21 AM CDT Inhaled Oxygen Concentration - - Weight 66.7 kg (147 lb) 05/02/2025 11:21 AM CDT Height 175.3 cm (5' 9) 05/02/2025 11:21 AM CDT Body Mass Index 21.71 05/02/2025 11:21 AM CDT Plan of Treatment Not on file Procedures Procedure Name Priority Date/Time Associated Diagnosis Comments D-DIMER, QUANTITATIVE Routine 05/02/2025 12:24 PM CDT May-Thurner syndrome LIPOPROTEIN A (LPA) Routine 05/02/2025 1 2:24 PM CDT Family history of heart disease LIPID PANEL Routine 05/02/2025 12:24 PM CDT Family history of heart disease URINALYSIS AND REFLEX TO MICROSCOPIC AND CULTURE STAT 06/26/2024 7:00 PM CDT from Last 3 Months or Most Recently Relevant to Health Maintenance Results * (ABNORMAL) Lipoprotein a (LPa) (05/02/2025 12:24 PM CDT) Lipoprotein A 220(H) <75 nmol/L [place] ref Lab Comment: Lp(a) confers increased risk for coronary disease and aortic stenosis starting at concentrations of 75 nmol/L and greater. Lp(a) >=125 nmol/L is considered a risk-enhancing factor for cardiovascular disease by several professional societies. Clinician-patient discussion of therapeutic strategy is warranted. ADDITIONAL INFORMATION Please notice that Lp(a) values are reported in molar units (nmol/L). These units are recommended by professional society guidelines and expert opinion statements. Measured results and risk thresholds are higher than those generated using mass units (mg/dL). Cardiovascular risk increases starting at 75 nmol/L. Lp(a) >=125 nmol/L is considered a risk enhancing factor by the [place] [employer]. This test has been modified from the medical director's instructions. Its performance characteristics were determined by [facility] in a manner consistent with CLIA requirements. This test has not been cleared or approved by the U.S. Food and Drug Administration. Test Performed by: [facility] - [address] [address] Community Engagement Manager: Lory Gauthier Ph.D.; CLIA# [id number] Blood 05/02/2025 12:2 4 PM CDT 05/02/2025 1:46 PM CDT Arina Reardon MD LAB BLOOD ORDERABLES Final Result Performing Organization Address City/[facility] Co de Phone Number [facility] [place] [address] [place] ref Lab * D-dimer, quantitative (05/02/2025 12:24 PM CDT) D-Dimer 261 <=499 ng/mL FEU Comment: Interpretive data FDA approved the D-dimer, in conjunction with a low or moderate pretest probability score, to exclude venous thromboembolic events (VTE) (PE and DVT) in outpatients when the D-dimer result is < 500 ng/ml FEU. Evidence supports using an age-adjusted D-dimer cut-off for outpatients older than 50 (age x 10) to improve specificity without sacrificing sensitivity. Example: age 68, VTE cut-off 680 ng/ml FEU. References; Schosvaldo HT et al. Brit Med J. 2013;346:f2492. Tessa et al. Annals Int Med. 2015;163:701-11. Current interpretive data was last revised on 2019. Blood 05/02/2025 12:2 4 PM CDT 05/02/2025 12:50 PM CDT us Arina Reardon MD LAB BLOOD ORDERABLES Final Result Performing Organization Address [facility] Co de Phone Number [facility] [place] [address] * (ABNORMAL) Lipid panel (05/02/2025 12:24 PM CDT) Cholesterol 196 30 - 199 mg/dL Comment: Interpretive Data Ages < or = 19 years Acceptable: <170 mg/dL Borderline high: 170-199 mg/dL High: >or= 200 mg/dL Ages > or = 20 years Desirable: <200 mg/dL Borderline high: 200-239 mg/dL High: >or= 240 mg/dL Literature References: 1. Expert Panel on Integrated Guidelines for Cardiovascular Health and Risk Reduction in Children and Adolescents. Pediatrics 2011;128:S213 2. NCEP Expert Panel. Circulation 2004;110:227 Current Interpretive Data was last revised on 2018. Triglycerides 131 <=149 mg/dL [facility] Comment: Interpretive Data Ages < or = 9 years Acceptable: <75 mg/dL Borderline high: 75-99 mg/dL High: >or= 100 mg/dL Ages 10 to 20 years Acceptable: <90 mg/dL Borderline high: 90-129 mg/dL High: >or= 130 mg/dL Ages > or = 20 years Desirable: <150 mg/dL Borderline high: 150-199 mg/dL High: 200-499 mg/dL Very high: >or= 499 mg/dL Literature References: 1. Expert Panel on Integrated Guidelines for Cardiovascular Health and Risk Reduction in Children and Adolescents. Pediatrics 2011;128:S213 2. NCEP Expert Panel. Circulation 2004;110:227 Current Interpretive Data was last revised on 2018. HDL 37(L) >=40 mg/dL [facility] Comment: Interpretive Data Ages < or = 19 years Acceptable: >45 mg/dL Borderline low: 40-45 mg/dL Low: <40 mg/dL Ages > or = 20 years Desirable: >or= 60 mg/dL Low: <40 mg/dL Literature References: 1. Expert Panel on Integrated Guidelines for Cardiovascular Health and Risk Reduction in Children and Adolescents. Pediatrics 2011;128:S213 2. NCEP Expert Panel. Circulation 2004;110:227 Current Interpretive Data was last revised on 2018. LDL, calculated 135(H) <=129 mg/dL [facility] Comment: Interpretive Data Ages < or = 19 years Acceptable: <110 mg/dL Borderline high: 110-129 mg/dL High: >or= 130 mg/dL Ages > or = 20 years Optimal: <100 mg/dL Near optimal: 100-129 mg/dL Borderline high: 130-159 mg/dL High: >160 mg/dL Calculated using the Madi LDL-C estimating equation. This equation was implemented on 2024. Prior to this date LDL-C was estimated using the Friedewald equation. Literature References: 1. Expert Panel on Integrated Guidelines for Cardiovascular Health and Risk Reduction in Children and Adolescents. Pediatrics 2011;128:S213 2. NCEP Expert Panel. Circulation 2004;110:227 3. Madi Salazar et al. CORNELIA Cardiol. 2019March 09;5(5):540-548. doi: 10.1001/[email or web address] Current Interpretive Data was last revised on 2024. Non-HDL Cholesterol 159 mg/dL [facility] Comment: Interpretive Data Ages < or = 19 years Acceptable: <120 mg/dL Borderline high: 120-144 mg/dL High: >145 mg/dL Ages > or = 20 years When triglycerides are >200 mg/dL, Non-HDL cholesterol is a secondary target of therapy with treatment goals that are 30 mg/dL greater than the LDL cholesterol target. Literature References: 1. Expert Panel on Integrated Guidelines for Cardiovascular Health and Risk Reduction in Children and Adolescents. Pediatrics 2011;128:S213 2. NCEP Expert Panel. Circulation 2004;110:227 Current Interpretive Data was last revised on 2018. Chol/HDL ratio 5 [facility] Blood 05/02/2025 12:2 4 PM CDT 05/02/2025 12:59 PM CDT Arina Reardon MD LAB BLOOD ORDERABLES Final Result [facility] Department [place] [address] * Urinalysis reflex to microscopic and culture Urine, clean voided (06/26/2024 7:00 PM CDT) Color, ur Yellow Yellow Clarity, ur Clear Clear [facility] Specific gravity, ur 1.021 1.003 - 1.030 [facility] pH, urine 6.5 [facility] Comment: Interpretive Data U rine pH is affected by diet, medications, systemic acid-base disturbances, and renal tubular function. pH may affect urinary stone formation. For example, urine pH below 6.0 may help reduce the tendency for calcium phosphate stones and pH greater than 6.0 may reduce the tendency for uric acid stone formation. Source: [facility] Current Interpretive Data was last revised on 2017 Protein, ur ql Negative Negative [facility] Glucose, ur ql Negative Negative [facility] Ketones, ur Negative Negative [facility] Bilirubin, ur Negative Negative [facility] Blood, ur Negative Negative [facility] Urobilinogen, ur <2.0 <2.0 mg/dL [facility] Nitrite, ur Negative Negative [facility] Leukocyte esterase, ur Negative Negative [facility] UA reflex comment Reflex conditions for microscopic UA and culture not met. 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
--- OUTSIDE RECORDS SUMMARY | 2025-06-06 05:20 | XMS_ITS | Clinical Summary ---
Author Organization [facility] [employer] Address [address] [place] [address] Care Team Providers Care Medical Auditor Name Role Phone Joey Bee Primary Care Provider + Joey Bee Unavailable [phone] Joey Bee Unavailable [phone] Source Comments [facility],non-[facility] Affiliates and Associated Physician Practices is amultiple site organization consisting of ambulatory clinics and hospital sitesin [place], [place], [place] and [place]. This disclosure is being madepursuant to the Care Everywhere program and may not contain all information available regarding this patient. Last updated 18.[facility] [employer] Allergies Active Allergy Reactions Criticality Noted Date Comments Adderall Urticaria Medium 05/20/2009 Oxycodone Itching Low 07/03/2017 Oxycodone-Acetaminophen Itching 09/12/2017 Medications * Be aware that medications may not be up to date on this document. Alwaysverify current medications with the patient. acetaminophen (TYLENOL) 325 MG tablet Take 325 mg by mouth every 4 hours as needed for Headache Maximum allowable Acetaminophen amount = 4 Grams (4000 mg) / 24 hours. Active ibuprofen (MOTRIN) 600 MG tablet Take 1 Tab by mouth every 6 hours as needed for Pain 24 Tab 0 Active butalbital-acetamin ophen-caffeine (Fioricet) 50-300-40 MG capsule butalbital-aspirin -caffeine 50 mg-325 mg-40 mg capsule Active topiramate (TOPAMAX) 25 MG tablet 5 (five) tablets at bedtime Active HYDROcodone-acetami nophen (NORCO) 5-325 MG tablet Take 1 tablet by mouth every 4 hours as needed 24 tablet Active docusate sodium (COLACE) 100 MG capsule Take 1 capsule by mouth 2 times daily 30 capsule Active ibuprofen (MOTRIN) 600 MG tablet Take 1 tablet by mouth every 6 hours as needed for Pain 40 tablet Active traMADol (ULTRAM) 50 MG tablet Take 50 mg by mouth every 12 hours as needed for Pain Active AMOXICILLIN-POT CLAVULANATE PO Take 1 tablet by mouth 2 times daily Active benzonatate (TESSALON) 100 MG capsule benzonatate 100 mg capsule TK ONE C PO Q 8 H PRN Active bictegravir-emtrici tabine-tenofovir (BIKTARVY) 50-200-25 MG Biktarvy 50 mg-200 mg-25 mg tablet TAKE 1 TABLET BY MOUTH EVERY DAY Active butalbital-aspirin- caffeine (FIORINAL) 50-325-40 MG capsule butalbital-aspirin -caffeine 50 mg-325 mg-40 mg capsule Active cyclobenzaprine (FLEXERIL) 5 MG tablet Take 5 mg by mouth 2 times daily as needed Active cyclobenzaprine (FLEXERIL) 5 MG tablet cyclobenzaprine 5 mg tablet TAKE 1 TABLET BY MOUTH TWICE DAILY NEEDED Active FLUoxetine (PROZAC) 40 MG capsule fluoxetine 40 mg capsule TAKE 1 CAPSULE BY MOUTH EVERY DAY IN THE MORNING Active promethazine-DM syrup promethazine-DM 6.25 mg-15 mg/5 mL oral syrup TAKE 5 ML BY MOUTH EVERY 4 HOURS FOR 10 DAYS NEEDED Active bictegravir-emtrici tabine-tenofovir (BIKTARVY) 50-200-25 MGIndications:Human immunodeficiency virus (HIV) disease (HCC) Take 1 (one) tablet by mouth once daily 30 tablet 4 022 Active meloxicam (Mobic) 15 MG tablet Take 1 (one) tablet by mouth once daily 30 tablet 2 022 Active Active Problems Patient Care Coordination No te Formatting of this note migh t be different from the original. Dr. Nickolas Dye Gastroenterology Dr. Bakari Saini Infectious Disease [facility] 07/2019 Problem Noted Date Diagnosed Date Abnormal [...] 05/22/2020 Forceps delivery 05/22/2020 state 05/22/2020 Immunizations Immunization Administration Dates Next Due MMR 05/02/2016 TDAP [...] Date Recorded PHQ2 TOTAL SCORE 0 02/12/2022 Comments No Sex and Gender Information Value Date Recorded Sex Assigned at Not on file Legal Sex Female 3:06 PM CDT Gender Identity Not on file Sexual Orientation [...] 10:50 AM CDT Height 175.3 cm (5' 9) 09/10/2022 10:50 AM CDT Body Mass Index 20.67 09/10/2022 10:50 AM CDT Plan of Treatment Health Maintenance Due Date Last Done Comments MENINGOCOCCAL GROUPS A/C/Y/W VACCINE (1 - Risk 2-dose series) 1991 HEPATITIS B VACCINE (1 of 3 - 19+ 3-dose series) 2008 PNEUMOCOCCAL VACCINE (1 of 2 - PCV) 2008 ZOSTER VACCINE (1 of 2) 2008 HPV VACCINE (1 - Risk 3-dose SCDM series) 2016 COVID-19 VACCINE (2 - Moderna risk series) 08/22/2021 07/25/2021 DEPRESSION SCREENING 11/09/2024 09/10/2022 INFLUENZA VACCINE (#1) 2025 DTAP/TDAP/TD VACCINES (2 - Td or Tdap) [...] C RNA QUANTITATIVE (02/12/2022 9:45 AM CDT) Pathologist [facility], [place] Hepatitis C Virus RNA, Quantitative Real Time [...] of this assay have been determined by [employer]. The modifications have not been cleared or approved by the FDA. This assay has been validated pursuant to the CLIA regulations and is used for clinical purposes. For more information on this test, go to: http://education.Lif[employer]/faq/MXX34r0 (This link is being provided for informational/ educational purposes only.) This assay is intended for use as an aid in the diagnosis of HCV infection and the management of HCV infected patients undergoing anti-viral therapy. Test Performed at: [email or web address] [facility] [id number] [id number] NAYAN BRUNSON DO,MPH 02/12/2022 9:45 AM CDT 02/12/2022 11:38 PM CDT Haydee Hernandez MD LAB - CHEMISTRY ORDERABLES Final Result [facility] [id number] [place] [address] from Last 3 Months or Most Recently Relevant to Health Maintenance Insurance Advance Directives * Full Code (Latest Code Status on File) Date Activated Date Inactivated Comments 01/27/2019 4:29 AM 01/28/2019 10:58 AM * Full Code Date Activated Date Inactivated Comments 09/12/2017 7:01 PM 09/15/2017 12:43 PM * Full Code Date Activated Date Inactivated Comments 04/30/2016 3:24 AM 05/03/2016 12:58 AM Care Teams Medical Auditor Relationship Specialty Start Date End Date Joey Bee PA [address] [place] [address] PCP - General 08/22/22 Joey Bee PA [address] [place] [address] Physician Tongue Carrier 08/22/22 Joey Bee PA [address] [place] [address] Physician Tongue Carrier 09/15/17
--- OUTSIDE RECORDS SUMMARY | 2025-06-06 05:20 | XMS_ITS | Data Portability ---
Author Organization [place] - [facility] [email or web address], Main Office Address [address] [place] [address] Assessment Encounter Date Assessment Date Assessment LastModified by Organization Details LastModified Time 09/30/2023 09/30/2023 HPI: Patient returns. She is [...] scapular area. 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 She has zldb-ms-vnocwquh ly protracted shoulders. She has active elevation [...] pain due to her overuse as a histologist. She has been having symptoms for over [...] This note is dictated and transcribed by [employer]. Drafter Chief Design variances may occur. Despite proofreading, typographical errors may occur. Occasional wrong-word or 'ibuns-h-tknl' substitutions may have occurred due to the inherent limitations of voice recording. Read the chart carefully and recognize, using context, where substitutions have occurred. [email or web address] Not available 11/21/2024 09:49:16 Plan of Treatment Reminders Order Date Submit Date Provider Last Modified By Organization Details Last Modified Time Details Appointments None recorded. Lab None recorded. 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 Please eval and treat . Thanks . Has venous insufficien cy[; Please call patient to schedule an appointment . Thank you 2023 024 [email or web address] Khanh Brown DPM, [address] [facility], [address], [place], [address], 4 09:38:06 cardiologis t referral - 33 y/o with venous insufficien cy , wears compression stockings . Has right ventricular regurgitati on . Please eval and treat. Please call patient to schedule an appointment . Thank you 2023 024 [email or web address] [facility] Medicine- Cardiology, [address] [place], [address], 09:09:02 Procedures None recorded. Surgeries None recorded. Imaging US, doppler, arterial [address] (Radiology), [address] [place], [address], 10:41:47 US, doppler, arterial - bilateral feet legs up to abdomen [address] (Radiology), [address] [place], [address], 5 12:42:58 XR, foot, 3 or more view 2024 025 [email or web address] 7 [facility] [place] [place] [facility] [place], [facility], [place], [address], 09:50:29 Medication Orders butalbital- aspirin-caf feine 50 mg-325 mg-40 mg capsule [address] [facility], [address] [place], [place], [id number], 5 15:40:28 amoxicillin 875 mg-potassiu m clavulanate 125 mg tablet 2024 025 deanna 200 [facility] #95085, [address] [place], [place], [id number], 5 14:14:38 ibuprofen 800 mg tablet 2024 025 [facility], [address] [place], [place], [id number], 5 16:13:35 gabapentin 100 mg capsule 2023 024 [facility] #44391, [address] [place], [place], [id number], 4 11:13:30 gabapentin 300 mg capsule 2023 024 [facility] #67026, [address] [place], [place], [id number], 4 11:13:30 diclofenac sodium 75 mg tablet,chinmay yed release 2022 023 [email or web address] [facility] #34452, [address] [place], [place], [id number], 4 10:49:25 Patient TargetsNo targets recorded. Patient InstructionsNo instructions recorded. Reason for Referral Binder And Wrapper Packer Referral for Pain in both feet pain in bottom of both feet proximal to pip joints . Please eval and treat . Thanks . Has venous insufficiency[; Please call patient to schedule an appointment. Thank you Referring Physician: [facility], Encounter Date: 09/29/2024 Blasting Clay Miner Referral for Pe ripheral venous insufficiency 33 y/o with venous insufficiency , wears compression stockings . Has right ventricular regurgitation . Please eval and treat. Please call patient to schedule an appointment. Thank you Referring Physician: Joey Bee [facility], Encounter Date: 09/29/2024 Results Created Date Observation Date Name Description Value Unit Range Abnormal Flag Note LastModifiedBy Organization Detail LastModifiedTime 03/24/20 24 03/24/2024 abebai ng/karlie leos tic resul t No observ ation record ed. [email or web address] [place] [address] [address] [place], [address], 03/25/2024 13:10:32 03/24/20 24 03/24/2024 imagi ng/di agnos tic resul t No observ ation record ed. [email or web address] [place], [address], 03/25/2024 13:10:38 05/27/20 24 05/27/2024 XR, knee, 1 or 2 view No observ ation record ed. [email or web address] [place], [address], 05/27/2024 08:40:07 11/21/19 25 XR, foot, 3 or more view No observ ation record ed. [email or web address] [facility] [place] [address] [facility] [address], [place], [address], 11/21/2024 09:50:28 Result Notes None recorded. Problems Name Problem SNOMED Code Status Onset Date Resolution Date Notes Provider Name and Address Organization Details Recorded Time Chronic hepatitis C 998424398 Active Not Available [facility] 3 07:49:12 Chronic diarrhea of unknown origin 45936497 Active Not Available [employer] 3 07:49:13 Suppressio n of menstruati on Active Not Available [facility] 3 07:49:13 Dysmenorrh ea 934459246 Active Not Available [facility] 3 07:49:13 Left lower quadrant pain 340248548 Active Not Available [facility] 3 07:49:13 Right lower quadrant pain 199033354 Active Not Available [facility] 3 07:49:13 Hematochez ia 265922498 Active Not Available [facility] 3 07:49:13 Abnormal cervical Papanicola ou smear 187772492 Active Not Available [facility] 3 07:49:13 Viral hepatitis C 17202136 Active Not Available [facility] 3 07:49:13 Urinary tract infectious disease 89210353 Active Not Available [facility] 3 07:49:13 Sprain of wrist 12346724 Active Not Available [facility] 3 07:49:13 Threatened miscarriag e in first trimester 33302130 Active Not Available [facility] 3 07:49:13 Irregular periods 79499303 Active Not Available [facility] 3 07:49:13 Human immunodefi ciency virus infection 67538153 Active Not Available [facility] 3 07:49:13 Pain of right shoulder joint 2881606823010 9100 Active 2021 Not Available [facility] 3 07:49:13 Tendinitis of right rotator cuff 4480712619798 9104 Active 2021 Not Available [facility] 3 07:49:13 Pain of left shoulder joint 5085278452890 9109 Active 2022 Not Available [facility] 3 07:49:12 Pain of right knee joint 8197593625463 00 Active 2022 Not Available [facility] 3 07:49:13 Neck pain 63282071 Active 2022 Not Available [facility] 3 07:49:13 Pain in both feet 6021485025109 9102 Active 2023 MARITZA Marmolejo [address], [address], [place], [address] , [employer] [facility] [employer] 4 11:03:31 Peripheral venous insufficie ncy 70318495 Active 2023 MARITZA Marmolejo [address], [address], [place], [address] , [employer] [facility] [employer] 4 11:39:52 Metatarsal lilian 09859156 Active 2024 Khanh Brown DPM [address], [address], [place], [address] , [employer] [facility] [employer] 5 17:29:19 Upper respirator y infection 84100573 Active 2024 MARITZA Marmolejo [address], [address], [place], [address] , [employer] [facility] [email or web address] 5 16:01:49 Nausea 150189427 Active 2024 MARITZA Marmolejo [address], [address], [place], [address] , [employer] [facility] [employer] [facility] 5 16:02:58 Tricuspid valve regurgitat ion 498751867 Active 2024 MARITZA Marmolejo [address] [employer], [address], [place], [address] , [employer] [facility] [employer] [facility] 5 15:17:40 Tachycardi a 6161946 Active 2024 MARITZA Marmolejo [address], [address], [place], [address] , [employer] [facility] [email or web address] 5 15:24:22 Sore gums 93982830 Active 2024 MARITZA Marmolejo [address], [address], [place], [address] , [employer] [facility] [employer] [facility] 5 16:12:42 Substance withdrawal Active 2024 MARITZA Marmolejo [address], [address], [place], [address] , [employer] [facility] [employer] [facility] 5 15:41:30 Acute otitis media 6967006 Active 2024 MARITZA Marmolejo [address] [employer], [address], [place], [address] , [employer] [facility] [employer] [facility] 5 15:32:24 Migraine 68512638 Active 2024 MARITZA Marmolejo [address], [address], [place], [address] , [employer] [facility] [employer] [facility] 5 15:35:56 Problem Notes None recorded. Procedures Surgical History Date Name Laterality Status Provider Name and Address Organization Details Recorded Time 06/09/20 cardiac catheterization completed Elvia Herrrea RN MS [employer] [facility] [employer] [facility] 09/29/2024 10:50:45 Imaging Results None recorded. Procedure Notes None recorded. Medical Equipment None Reported. Allergies Allergen ID Allergen Name Allergen Category Reaction Reaction Severity Criticality Documentation Date Start Date Code Code System Note Provider Name and Address Organization Details Recorded Time 34479 oxycodone medicatio n itching Not available Not available 01/07/2023 7804 RxNorm Not Available [facility] 3 06:17:09 Medications Name Sig Start Date [...] DIRECTION S. 123 TABLETS= 36 DAY SUPPLY 2024 active Not Available Not Available Not Avai lable prednisone 10 mg tablet 09/29 completed Not [...] T PO ONCE D FOR 4 DAYS 03/02 completed Not Available Not Available Not Available ibuprofen 800 mg tablet TAKE 1 TABLET BY MOUTH THREE TIMES DAILY WITH MEALS active Not Available Not Available No t Available fluconazole 150 mg tablet TAKE 1 TABLET [...] oral solution USE DIRECTED BY THE OFFICE 03/02 completed Not Available Not Available Not Available tramadol 50 mg tablet TAKE 1 TABLET BY MOUTH TWICE DAILY NEEDED 09/30 completed Not Available Not Available Not Available acetaminoph en 500 mg tablet TAKE 2 TABLET BY MOUTH EVERY 6 HOURS NEEDED FOR PAIN active Not Available Not Available No t [...] administe red by the provider 07/21 completed NDC: 0003- 0494- 20 Not Available Not Available [...] aspirin-caf feine 50 mg-325 mg-40 mg capsule TAKE 1 CAPSULE BY MOUTH EVERY 4 HOURS NEEDED FOR HEADACHE active Not Available Not Available No t Available gabapentin 300 mg capsule TAKE 1 [...] IN THE MORNING FOR FAST HEART RATE 04/24 /2025 completed Not Available Not Available Not Available ibuprofen 600 mg tablet TAKE 1 TABLET BY MOUTH THREE TIMES DAILY NEEDED FOR PAIN active Not Available Not Available No t Available polyethylen e glycol 3350 17 gram/dose [...] 875 mg-potassiu m clavulanate 125 mg tablet Take 1 tablet every 12 hours by oral route for 10 days. 2024 active Not Available Not Available Not Avai lable hydroxyzine pamoate 25 mg capsule 01/04 completed Not Available Not Available Not Available Sprintec (28) 0.25 mg-0.035 mg tablet 01/04 completed Not Available Not Available Not Available cyclobenzap rine 5 mg tablet TAKE 1 TABLET BY MOUTH TWICE DAILY NEEDED 09/30 completed Not Available Not Available Not Available FE 11/28 (28) 1 mg-20 mcg (21)/75 mg [...] administe red by the provider 12/02 completed [facility]: 0409- 4276- 17 Not Available Not Available [...] active Not Available Not Available Not Available Se- 19 (with docusate) 29 mg iron-1 mg-25 [...] TAKE 1 TABLET BY MOUTH EVERY DAY DIRECTED FOR HIV active Not Available Not Available No t Available Vitals Date Recorded Body height Body mass index (BMI) Body weight Heart rate Respiratory rate Oxygen saturation Oxygen saturation in Arterial blood by Pulse oximetry Systolic And Diastolic Provider Name and Address Organization Details Last Updated DateTime 5 167.64 cm 26.1 kg/m2 49171.9 6 g 75 /min 14 /min 99 % 99 % 125/89 mm[Hg] Yvette Montague [facility] [employer] [facility] 5 16:33:47 Date Recorded Body height Body temperature Oxygen saturation Oxygen saturation in Arterial blood by Pulse oximetry Heart rate Body mass index (BMI) Body weight Systolic And Diastolic Provider Name and Address Organization Details Last Updated DateTime 5 167.64 cm 97.7 [degF] 98 % 98 % 65 /min 25.4 kg/m2 61958.3 6 g 108/70 mm[Hg] David Smith RN [facility] [employer] [facility] 5 16:04:03 Date Recorded Body height Body mass index (BMI) Body weight Body temperature Oxygen saturation Oxygen saturation in Arterial blood by Pulse oximetry Heart rate Systolic And Diastolic Provider Name and Address Organization Details Last Updated DateTime 5 167.64 cm 25 kg/m2 48234.8 2 g 97.4 [degF] 99 % 99 % 54 /min 96/64 mm[Hg] Garima Siddiqui Fadi [facility] [employer] [facility] 5 15:23:02 Date Recorded Body height Body mass index (BMI) Body weight Body temperature Heart rate Oxygen saturation Oxygen saturation in Arterial blood by Pulse oximetry Systolic And Diastolic Provider Name and Address Organization Details Last Updated DateTime 4 167.64 cm 26.1 kg/m2 85274.9 6 g 97.9 [degF] 70 /min 98 % 98 % 94/64 mm[Hg] Elvia Herrera RN [facility] [employer] [facility] 4 10:52:15 Date Recorded Body height Body mass index (BMI) Body weight Provider Name and Address Organization Details Last Updated DateTime 09/30/2023 167.64 cm 22.4 kg/m2 46995.34 g CAROL Abreu [place] [facility] 09/30/2023 14:47:35 Social History Question Answer Notes LastModified by [employer] Details LastModified Time Tobacco Smoking Status Current Every Day Smoker Not Available [facility] 01/07/2023 06:05:02 If You Are , What Was Your Level Of Alcohol Consumption Prior To ? None Information not available 11/17/2024 What Is Your Level Of Caffeine Consumption? Occasional Information not available 11/17/2024 What Was The Date Of Your Most Recent Tobacco Screening? 11/17/2024 Information not available 11/17/2024 How Much Tobacco Do You Smoke? 0.5 PPD [id number] Information not available 01/07/2023 Has Tobacco Cessation Counseling Been Provided? No Information not available 11/17/2024 How Many Years Have You Smoked Tobacco? 17 [id number] Information not available 01/07/2023 Sex: Unknown Functional Status Question Answer Note LastModified by [employer] Details LastModified Time Do you use any illicit or recreational drugs? No Information not available 11/17/2024 Do you or have you ever used any other forms of tobacco or nicotine? No Information not available 11/17/2024 What is your level of alcohol consumption? None Information not available 11/17/2024 Mental Status None recorded. Family History Relationship Description Onset Age of this Age Resolved Age Notes LastModified by Organization Details LastModified Time Father Heart disease [id number].133 [id number] Not available 01/07/2023 06:06:36 Unspecified Relation Family history of malignant neoplasm [id number].090 [id number] Not available 01/07/2023 06:06:36 Mother Hypertensive disorder [id number] [id number] Not available 01/07/2023 06:06:36 Notes:hx of breast cancer on mothers side- 2 aunts Medical History Condition Response HEPATITIS / LIVER DISEASE Y VASCULAR DISEASE Y HEART DISEASE/HEART PROBLEMS Y AIDS/HIV Y Gynecological HistoryNo gynecological history recorded. Obstetrics History GPAL:G 0 P 0 0 0 0 Past Encounters Encounter ID Performer Location Encounter Start Date Encounter Closed Date Diagnosis/Indication Diagnosis SNOMED-CT Code Diagnosis ICD10 Code Diagnosis Note [id number] MARITZA Holland [facility] [place] [address] [place] [address] 07/11/2021 00:00:00 07/11/2021 12:14:22 [id number] Elian Bee MD [facility] [place] [address] [place] [address] 12/02/2021 00:00:00 12/02/2021 11:39:22 [id number] Elian Bee MD [facility] [place] [address] [place] [address] 07/21/2022 00:00:00 07/21/2022 12:25:06 [id number] Elian Bee MD [facility] [place] [address] [place] [address] 08/07/2022 00:00:00 08/07/2022 10:08:12 [id number] Enrico Shrestha MD [facility] [place] [address] [place] [address] 06/26/2023 11:06:58 06/29/2023 10:20:53 Pain of right shoulder joint 0709921913 9051251 M25.511 M54.2 [id number] Enrico Shrestha MD [facility] [place] [address] [place] [address] 09/30/2023 14:27:35 09/30/2023 15:22:36 Pain of left shoulder joint 9151022694 7356815 M25.303 [id number] Dallas Sauer MD [facility] Family Practice [place] [address] [facility] [place] [address] 09/29/2024 10:36:39 09/29/2024 11:16:11 Pain in both feet 9700197118 8731195 M79.671 M79.672 Peripheral venous insufficiency 68630006 I87.2 [id number] Khanh Brown DPM [facility] Pod[facility] [place] [address] [place] [address] 11/17/2024 16:16:13 11/22/2024 15:55:50 Metatarsalgia 35340040 M77.41 M77.42 as below Pain in both feet 158582 3936 4317174 M79.671 M79.672 discuss treatment options in detailReco mmend Powerstep orthotics with met paddiscuss ed supportive athletic shoe gearMay continue naproxen- monitor for GI upset symptoms if present. Take medication immediatel [facility] month[facility]ray s reviewed with the patient [id number] Dallas Sauer MD [facility] [address] [place] [address] 01/05/2025 15:52:43 01/05/2025 16:53:35 Pain in both feet 5160872890 2823681 M79.671 M79.672 Peripheral venous insufficiency 98221676 I87.2 Sore gums 26730395 K08.8 9 [id number] Dallas Sauer MD [facility] [address] [place] [address] 03/02/2025 15:11:55 03/02/2025 15:44:35 Acute otitis media 8314821 H66.91 Migraine 40366362 G43.90 9 Peripheral venous insufficiency 10445625 I87.2 Health Concerns Section Related Observation LastModified by Organization Detai ls LastModified Time None Recorded Concern Status LastModified by Organization Details LastModified Time None Recorded Advance Directives Directive None Recorded Payers Insurance Date Sequence Insurance Name Policy Number Policy Moseley Covered Member ID Moseley Member ID Guarantor Name 07/20/2024 1 [place] [id number] Liz Hurtado [id number] Liz Hurtado 07/20/2024 1 [facility] - DOS ON OR AFTER 21 (MEDICAID REPLACEMENT - HMO) Liz Hurtado [id number] Liz Hurtado 07/20/2024 1 [facility] - DOS ON OR AFTER 21 (MEDICAID REPLACEMENT - HMO) Liz Hurtado [id number] Liz Hurtado 09/26/2024 1 [facility] - DOS ON OR AFTER 21 (MEDICAID REPLACEMENT - HMO) Liz Hurtado [id number] Liz Hurtado 09/28/2024 2 [facility] - DOS ON OR AFTER 21 (MEDICAID REPLACEMENT - HMO) Liz Hurtado [id number] Liz Hurtado 11/16/2024 1 [place] Liz Hurtado [id number] Liz Hurtado 09/28/2024 1 *SELF PAY* Ho debra Hurtado 09/26/2024 1 [place] [id number] Liz Hurtado [id number] Liz Hurtado 03/02/2025 1 [facility] - DOS ON OR AFTER 2020 - DUAL ELIGIBLE (MEDICARE REPLACEMENT/AD VANTAGE - HMO) Liz Hurtado [id number] Liz Hurtado 07/20/2024 1 [place] Liz Hurtado [id number] Liz Hurtado 07/20/2024 2 [place] Liz Hurtado [id number] Liz Hurtado 03/13/2025 1 [place] Liz Hurtado [id number] Liz Hurtado OBGyn Episode No OBEpisode recorded.
--- OUTSIDE RECORDS SUMMARY | 2025-06-06 05:20 | XMS_ITS | Encounter Summary ---
Author Organization [facility] Healthcare Address [address] [place] [address] Care Team Providers Care Senior Administrative Support Name Role Phone Joey Bee Primary Care Provider + Encounter Details Date Type Department Care Team (Late st Contact Info) Description 05/04/2025 Results Follow-Up [facility] Card[facility] Diagnostic Lab [address] [place] [address] Arina Reardon MD [address] [address] Lipid panel, Lipoprotein a (LPa), D-dimer, quantitative Social History Tobacco Use Types Packs/Day Years Used Date Smoking Tobacco: Every Day E-cigarettes Personal Safety Answer Date Recorded Have you ever been in or are you currently in a harmful physical or emotional relationship or is someone making you feel afraid or unsafe? 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
--- OUTSIDE RECORDS SUMMARY | 2025-06-06 05:20 | XMS_ITS | Encounter Summary ---
Author Organization [facility] [place] Address [address] [facility] [address] Care Team Providers Care Terrazzo Polisher Helper Name Role Phone Skyler Renae MD Primary Care Provider [phone] Unknown, Provider Primary Care Provider Unavaila ble Joey Bee Primary Care Provider + Joey Bee Primary Care Provider + Joey Bee Primary Care Provider + Joey Bee Unavailable [phone] Joey Bee Unavailable [phone] Reason for Visit * Reason Onset Date Comments Scheduling 12/06/2015 Left a message w ith patients mother, requesting patient to return call regarding a change of time for her 12/21/15 appointment. Encounter Details Date Type Department Care Team (Late st Contact Info) Description 12/06/2015 Telephone [facility] Maternal & Care [address] [place] [address] Sweetie Okeefe Scheduling (Left a message with [...] on filedocumented in this encounter Care Teams Terrazzo Polisher Helper Relationship Specialty Start Date End Date Skyler Renae MD [address] [facility] [address] [place] [address] PCP - General Family Medicine 10/15/15 03/19/16 Unknown, Provider [address] [address] PCP - General 03/20/16 04/01/16 Joey Bee PA [address] [place] [address] PCP - General Physician Research Investigator 09/24/16 09/14/17 Joey Bee PA [address] [place] [address] PCP - General Physician Research Investigator 09/15/17 08/21/22 Joey Bee PA [address] [place] [phone] PCP - General 08/22/22 Joey Bee PA [address] [place] [phone] Physician Research Investigator 08/22/22 Joey Bee PA [address] [place] [address] Physician Research Investigator 09/15/17 documented as of this encounter
--- OUTSIDE RECORDS SUMMARY | 2025-06-06 05:20 | XMS_ITS | Clinical Summary ---
Author Organization [facility] [address] Address [address] [place] [address] Care Team Providers Care Paleontology Teacher Name Role Phone Joey Bee Primary Care Provider + Allergies Active Allergy Reactions Criticality Noted Date [...] - 05/19/2025 11:59 PM CDT Hospital Encounter [facility] Cardiac Diagnostic Lab [address] [place] [phone] Labile blood pressure; Elevated blood pressure reading Discharge Disposition: Discharge to home or self care 05/09/2025 Telephone [facility] [address] [facility] [address] [place] [phone] Yuri Bermudez DO New Referral 05/04/2025 Results Follow-Up [facility] Cardiac Diagnostic Lab [address] [facility] [place] [address] Arina Reardon MD Lipid panel, Lipoprotein a (LPa), D-dimer, quantitative 05/02/2025 12:25 PM CDT Lab [facility] [place] [phone] Family history of heart disease; May-Thurner syndrome 05/02/2025 11:00 AM CDT Office Visit [facility] [address] [facility] 8th [place] [address] [place] [address] Arina Reardon MD 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); Family history of heart disease; Labile blood pressure; Hypotension, unspecified hypotension type; Elevated blood pressure reading from Last 3 Months Medical History Medical History Date Comments HIV (human immunodeficiency virus infection) (HC C) Cervical cancer (HCC) s/p SVITLANA Family History Medical History Relation Name Comments Coronary artery disease Father s/p PCI, CABG Heart disease Father Relation Name Status Comments [...] on file Legal Sex Female 8:59 PM REEL HOOKER Gender Identity Not on file Sexual Orientation [...] 05/02/2025 11:21 AM CDT Plan of Treatment Health Maintenance Due Date Last Done Comments Cervical Cancer Screening-Pap and HPV 1989 Depression Screening 1989 HLA [...] 2) 2008 Hepatitis C Screening 03/25/2015 03/25/2014 HPV Vaccines (1 - Risk 3-dose SCDM series) 2016 Proteinuria screening Urinalysis (UA) 06/26/2025 06/26/2024, 03/25/2014 Influenza Vaccine (#1) 2025 DTaP/Tdap/Td Vaccine (2 - Td or Tdap) 02/19/2026 Lipid Panel 05/02/2026 05/02/2025, 02/12/2022 Procedures Procedure Name Priority Date/Time Associated Diagnosis [...] PM CDT) Lipoprotein A 220(H) <75 nmol/L [facility] ref Lab Comment: Lp(a) confers increased risk [...] considered a risk enhancing factor by the [place] [employer]. This test has been modified from the pet sitting's instructions. Its performance characteristics were determined by [facility] in a manner consistent with CLIA requirements. This test has not been cleared or approved by the U.S. Food and Drug Administration. Test Performed by: [facility] - [address] [address] Industrial Relations Worker: Lory Gauthier Ph.D.; CLIA# [id number] Blood 05/02/2025 12:2 4 PM CDT 05/02/2025 1:46 PM CDT Arina Reardon MD LAB BLOOD ORDERABLES Final Result Performing Organization Address [facility] de Phone Number SURAJ MOSQUERA [facility] [place] [address] [facility] ref Lab * D-dimer, quantitative (05/02/2025 [...] 68, VTE cut-off 680 ng/ml FEU. References; Schoutshreya HT et al. Brit Med J. 2013;346:f2492. Tessa et al. Annals Int Med. 2015;163:701-11. Current interpretive data was last revised on 2019. Blood 05/02/2025 12:2 4 PM CDT 05/02/2025 12:50 PM CDT Arina Reardon MD LAB BLOOD ORDERABLES Final Result Performing Organization Address [facility] de Phone Number SURAJ MOSQUERA [facility] [place] [address] * (ABNORMAL) Lipid panel (05/02/2025 12:24 PM [...] revised on 2018. Triglycerides 131 <=149 mg/dL [facility] Comment: Interpretive Data Ages < or = [...] revised on 2018. HDL 37(L) >=40 mg/dL [facility] Comment: Interpretive Data Ages < or = [...] on 2018. LDL, calculated 135(H) <=129 mg/dL [facility] Comment: Interpretive Data Ages < or = [...] 2. NCEP Expert Panel. Circulation 2004;110:227 3. Barraza M et al. CORNELIA Cardiol. 2019March 09;5(5):540-548. doi: 10.1001/jamacardio.2020.0013 Current Interpretive Data was last revised on 2024. Non-HDL Cholesterol 159 mg/dL [facility] Comment: Interpretive Data Ages < or = [...] last revised on 2018. Chol/HDL ratio 5 [facility] Blood 05/02/2025 12:2 4 PM CDT 05/02/2025 12:59 PM CDT us Arina Reardon MD LAB BLOOD ORDERABLES Final Result [facility] [place] [address] * Urinalysis reflex to microscopic and culture Urine, clean voided (06/26/2024 7:00 PM CDT) Color, ur Yellow Yellow Clarity, ur Clear Clear [facility] Specific gravity, ur 1.021 1.003 - 1.030 [facility] pH, urine 6.5 [facility] Comment: Interpretive Data U rine pH is affected by diet, medications, systemic acid-base disturbances, and renal tubular function. pH may affect urinary stone formation. For example, urine pH below 6.0 may help reduce the tendency for calcium phosphate stones and pH greater than 6.0 may reduce the tendency for uric acid stone formation. Source: StatSheet Current Interpretive Data was last revised on 2017 Protein, ur ql Negative Negative [facility] Glucose, ur ql Negative Negative [facility] Ketones, ur Negative Negative [facility] Bilirubin, ur Negative Negative [facility] Blood, ur Negative Negative [facility] Urobilinogen, ur <2.0 <2.0 mg/dL [facility] Nitrite, ur Negative Negative [facility] Leukocyte esterase, ur Negative Negative [facility] UA reflex comment Reflex conditions for microscopic UA and culture not met. [facility] Urine, clean voided 06/26/2024 7:00 PM CDT 06/26/2024 7:09 PM CDT us Johnnie Sibley MD LAB MICROBIOLOGY - GENER AL ORDERABLES Final Result [facility] [place] [address] from Last 3 Months or Most Recently Relevant to Health Maintenance Insurance [employer] Care Teams Paleontology Teacher Relationship Specialty Start Date End Date Joey Bee PA [address] [place] [address] PCP - General Internal Medicine 01/05/25
--- NOTE | 2025-06-06 05:41 | ED_ITS ---
HPI - Chest Pain General Chief Complaint: Chest Pain <Liana Carter MD - Last Filed: 06/06/25 06:56> Stated Complaint: chest pain, n/v, shakiness <Liana Carter MD - Last Filed: 06/06/25 06:56> Time Seen by Provider: 06/06/25 05:21 <Liana Carter MD - Last Filed: 06/06/25 06:56> History of Present Illness HPI narrative: Patient presents here feeling awful, she is reporting shaking, nausea, chest tightness, she is a daily fentanyl user, snorts, and last use was 3:00 a.m. she tried taking Zofran at home already. <Liana Carter MD - Last Filed: 06/06/25 06:56> Related Data Home Medications: Home Medications ?Medication ?Instructions ?Recorded ?Confirmed ?Last Taken ?Type acetaminophen 300 mg-codeine 30 mg 1 tablet PO BID PRN Pain (Scale 05/09/24 05/09/24 Unknown History tablet Score 4-6) bictegravir 50 mg-emtricitabine 1 tablet PO DAILY 05/09/24 05/09/24 Unknown History 200 mg-tenofovir alafenam 25 mg tablet (Biktarvy) isewuxqoyc-detxpxbbdlnwc-oflpgbza 1 tablet PO BID PRN Migraine 05/09/24 05/09/24 Unknown History 50 mg-325 mg-40 mg tablet Headache ibuprofen 800 mg tablet 800 mg PO TID PRN Pain (Scale 05/09/24 05/09/24 Unknown History Score 1-3) methadone 40 mg soluble tablet 95 mg PO DAILY 05/09/24 05/10/24 Unknown History <Liana Carter MD - Last Filed: 06/06/25 06:56> Allergies/Adverse Reactions: Allergies Allergy/AdvReac Type Severity Reaction Status Date / Time oxycodone Allergy Intermediate HIVES/RASH/ Verified 06/06/25 06:34 ITCHY <Liana Carter MD - Last Filed: 06/06/25 06:56> Review of Systems 2 Review of Systems: All systems reviewed & are unremarkable except as noted in HPI and below <Liana Carter MD - Last Filed: 06/06/25 06:56> PMFSH Past Medical History Medical History: Medical History (Updated 06/06/25 @ 06:56 by Liana Carter MD) Methadone dependence Posttraumatic stress disorder Human immunodeficiency virus (2015) Migraine Ectopic <Liana Carter MD - Last Filed: 06/06/25 06:56> Surgical History Surgical History: Surgical History History of tubal ligation History of partial hysterectomy <Liana Carter MD - Last Filed: 06/06/25 06:56> Family History Family History: Family History Father Heart disease Mother Depression Grandparent Breast cancer Lung cancer Grandparent Lung cancer Skin cancer <Liana Carter MD - Last Filed: 06/06/25 06:56> Social History Social History: Social History Social History: Surrogate medical decision maker: Kapil Agrawal, significant other. Code status: Full code. Smoking packs per day: 1 Smoking cigarettes per day: 20.0 Smoking status: Current every day smoker Alcohol intake: former Substance use: former Other substance usage details: Previously on methadone.Withdrawing as of end January 2025 Do You Feel Safe in your Home?: Yes Lack of Transportation: No Lack of Food: Never True Current Housing: I Have Housing Concerned About Future Housing: No Difficulty Paying Gas/Electric Bills: No Difficulty Paying for Meds: No Currently Unemployed: No Education: High School Diploma/GED Difficulty w/ Childcare or Family Care: No Living arrangements: with family Occupation/Education: unemployed Spiritual care concerns: No Agree to blood products: Yes <Liana Carter MD - Last Filed: 06/06/25 06:56> Exam 2 Narrative: EXAMINATION OF ORGAN SYSTEMS/BODY AREAS: Constitutional: Vital signs per nursing GENERAL: Very shaky HEAD: Normal with no signs of head trauma. EYES: Incredibly dilated pupils ENT: Hearing grossly intact LUNGS: Nonlabored breathing. HEART: Tachycardic ABD: [Soft], [nontender to palpation] EXT: Normal range of motion SKIN: [No rashes or lesions.] NEURO: [Alert and oriented x 3. No gross focal sensory or strength deficits.] PSYCH: Normal affect <Liana Carter MD - Last Filed: 06/06/25 06:56> Course Course Emergency Course: Patient re-evaluated. She is doing better after multiple rounds of antiemetics and some fluids. She is still tachycardic with some mild pupil dilation. She is awake alert orient x4. Discussed admission for hydration and symptomatic control. Patient voiced desire to to talk to somebody about in patient medical treatment for opiate withdrawal. Care coordination discussed with the patient and she change her mind in adamantly refuses to go anywhere and does not want to get any treatment at this time. She reports she can handle herself at home would like to leave. <Yuri Romo MD - Last Filed: 06/06/25 10:19> Vital Signs Vital signs: Vital Signs Temperature 97.9 F 06/06/25 05:23 Pulse Rate 119 H 06/06/25 05:23 Respiratory Rate 20 06/06/25 05:23 Blood Pressure 141/90 H 06/06/25 05:23 Pulse Oximetry 99 06/06/25 05:23 Oxygen Delivery Room Air 06/06/25 05:23 Temperature 98.5 F 06/06/25 09:32 Pulse Rate 106 H 06/06/25 09:32 Respiratory Rate 30 H 06/06/25 09:32 Blood Pressure 131/72 06/06/25 09:29 Pulse Oximetry 97 06/06/25 09:29 Oxygen Delivery Room Air 06/06/25 05:28 <Liana Carter MD - Last Filed: 06/06/25 06:56> Vital Signs Temperature 97.9 F 06/06/25 05:23 Pulse Rate 119 H 06/06/25 05:23 Respiratory Rate 20 06/06/25 05:23 Blood Pressure 141/90 H 06/06/25 05:23 Pulse Oximetry 99 06/06/25 05:23 Oxygen Delivery Room Air 06/06/25 05:23 Temperature 98.5 F 06/06/25 09:32 Pulse Rate 106 H 06/06/25 09:32 Respiratory Rate 30 H 06/06/25 09:32 Blood Pressure 131/72 06/06/25 09:29 Pulse Oximetry 97 06/06/25 09:29 Oxygen Delivery Room Air 06/06/25 05:28 <Yuri Romo MD - Last Filed: 06/06/25 10:19> MDM - Chest Pain MDM Narrative Medical decision making narrative: Patient presents here feeling horrible, she is reporting nausea, shakes, aches and pains. On my exam she has extremely dilated pupils, is shaking, tearful, cannot stay still; I am highly suspicious of opiate withdrawal given her symptoms, overall her COWS score appears to be 20. Cardiac workup initiated. Initial Ativan and Zofran did not help much, I did order some phenobarbital. EKG - 12-Lead: Performed at 0532. Interpreted by me. [Sinus rhythm]. Rate 128. [Normal] axis. IA-interval [normal]. QRS duration [normal]. QTc [normal]. [No ST segment elevation or depression]. [T-wave normal]. Impression: No EKG evidence of acute ischemia or dysrhythmia. Patient signed out to oncoming ER physician at this time though I suspect if she continues this way she may need to be admitted for symptomatic management < Liana Carter MD - Last Filed: 06/06/25 06:56> Lab Data Result diagrams: 06/06/25 05:40 06/06/25 05:40 <Liana Carter MD - Last Filed: 06/06/25 06:56> Labs: Lab Results 06/06/25 06/06/25 Range/Units 05:40 08:28 WBC 15.3 H (4.5-10.0) K/mm3 RBC 4.73 (4.2-5.4) M/mm3 Hgb 14.3 (12.0-15.0) g/dL Hct 40.3 (37.0-47.0) % MCV 85.2 (80-100) fl MCH 30.2 (26-34) pg MCHC 35.5 (32-36) g/dl RDW 12.5 (11.5-14.5) % Plt Count 322 (150-375) k/mm3 MPV 9.0 (7.4-10.4) fl Immature Gran % (Auto) 0.4 (0-0.5) % Neut % (Auto) 89.3 H (45.5-73.1) % Lymph % (Auto) 8.1 L (18.3-44.2) % [place] % (Auto) 1.8 L (2.6-8.5) % Eos % (Auto) 0.1 (0-4.4) % Baso % (Auto) 0.3 (0.2-1.2) % Lymph # (Auto) 1.24 (0.9-3.2) K/mm3 [place] # (Auto) 0.3 (0.1-0.6) K/mm3 Eos # (Auto) 0.0 (0-0.3) K/mm3 Baso # (Auto) 0.0 (0.0-0.1) K/mm3 Abs Immat Gran (auto) 0.06 H (0.00-0.031) K/mm3 Absolute Neuts (auto) 13.7 H (1.3-6.7) K/mm3 Absolute Nucleated RBC 0.000 (0.0-0.012) K/mm3 Nucleated RBC % 0.0 (0.0-0.2) % PT 14.7 (11.1-14.7) Seconds INR 1.1 APTT 26.9 (22.3-36.8) Seconds Sodium 146 H (137-145) mmol/L Potassium 3.5 (3.4-5.0) mmol/L Chloride 109 H (98-107) mmol/L Carbon Dioxide 20 L (22-30) mmol/L Anion Gap 17 H (4-12) mmol/L BUN 9 (7-17) mg/dL Creatinine 0.66 L (0.7-1.0) mg/dL Estim Creat Clear Calc 105 ml/min Estimated GFR > 60 (59 - ) Glucose 161 H (65-110) mg/dL Calcium 9.8 (8.4-10.2) mg/dL Total Bilirubin 0.5 (0.2-1.3) mg/dL AST 43 H (14-36) U/L ALT 40 H (6-35) U/L Alkaline Phosphatase 119 (38-126) U/L Troponin I < 0.012 < 0.012 (0.000-0.034) ng/mL Total Protein 8.5 H (6.3-8.2) g/dL Albumin 4.7 (3.5-5.1) g/dL Lipase 40 (23-300) U/L Urine Opiates Screen Negative (Negative) Urine Methadone Screen Negative (Negative) Ur Barbiturates Screen Positive A (Negative) Ur Phencyclidine Scrn Negative (Negative) Ur Amphetamine Screen Negative (Negative) U Benzodiazepines Scrn Negative (Negative) Urine Cocaine Screen Negative (Negative) U Cannabinoids Screen Negative (Negative) <Liana Carter MD - Last Filed: 06/06/25 06:56> Lab Results 06/06/25 06/06/25 Range/Units 05:40 08:28 WBC 15.3 H (4.5-10.0) K/mm3 RBC 4.73 (4.2-5.4) M/mm3 Hgb 14.3 (12.0-15.0) g/dL Hct 40.3 (37.0-47.0) % MCV 85.2 (80-100) fl MCH 30.2 (26-34) pg MCHC 35.5 (32-36) g/dl RDW 12.5 (11.5-14.5) % Plt Count 322 (150-375) k/mm3 MPV 9.0 (7.4-10.4) fl Immature Gran % (Auto) 0.4 (0-0.5) % Neut % (Auto) 89.3 H (45.5-73.1) % Lymph % (Auto) 8.1 L (18.3-44.2) % [place] % (Auto) 1.8 L (2.6-8.5) % Eos % (Auto) 0.1 (0-4.4) % Baso % (Auto) 0.3 (0.2-1.2) % Lymph # (Auto) 1.24 (0.9-3.2) K/mm3 [place] # (Auto) 0.3 (0.1-0.6) K/mm3 Eos # (Auto) 0.0 (0-0.3) K/mm3 Baso # (Auto) 0.0 (0.0-0.1) K/mm3 Abs Immat Gran (auto) 0.06 H (0.00-0.031) K/mm3 Absolute Neuts (auto) 13.7 H (1.3-6.7) K/mm3 Absolute Nucleated RBC 0.000 (0.0-0.012) K/mm3 Nucleated RBC % 0.0 (0.0-0.2) % PT 14.7 (11.1-14.7) Seconds INR 1.1 APTT 26.9 (22.3-36.8) Seconds Sodium 146 H (137-145) mmol/L Potassium 3.5 (3.4-5.0) mmol/L Chloride 109 H (98-107) mmol/L Carbon Dioxide 20 L (22-30) mmol/L Anion Gap 17 H (4-12) mmol/L BUN 9 (7-17) mg/dL Creatinine 0.66 L (0.7-1.0) mg/dL Estim Creat Clear Calc 105 ml/min Estimated GFR > 60 (59 - ) Glucose 161 H (65-110) mg/dL Calcium 9.8 (8.4-10.2) mg/dL Total Bilirubin 0.5 (0.2-1.3) mg/dL AST 43 H (14-36) U/L ALT 40 H (6-35) U/L Alkaline Phosphatase 119 (38-126) U/L Troponin I < 0.012 < 0.012 (0.000-0.034) ng/mL Total Protein 8.5 H (6.3-8.2) g/dL Albumin 4.7 (3.5-5.1) g/dL Lipase 40 (23-300) U/L Urine Opiates Screen Negative (Negative) Urine Methadone Screen Negative (Negative) Ur Barbiturates Screen Positive A (Negative) Ur Phencyclidine Scrn Negative (Negative) Ur Amphetamine Screen Negative (Negative) U Benzodiazepines Scrn Negative (Negative) Urine Cocaine Screen Negative (Negative) U Cannabinoids Screen Negative (Negative) <Yuri Romo MD - Last Filed: 06/06/25 10:19> Discharge Plan Discharge Clinical Impression: Opiate withdrawal <Liana Carter MD - Last Filed: 06/06/25 06:56> Patient Disposition: Home <Liana Carter MD - Last Filed: 06/06/25 06:56> Condition: Stable <Liana Carter MD - Last Filed: 06/06/25 06:56> Instructions: Opioid Withdrawal (ED) <Liana Carter MD - Last Filed: 06/06/25 06:56> Additional Instructions: Return ER if you have chest pain shortness of breath, you can not keep down food water, you lose consciousness, or you have additional concerns. <Liana Carter MD - Last Filed: 06/06/25 06:56> Patient Language: Khmer <Liana Carter MD - Last Filed: 06/06/25 06:56> Prescriptions: New ondansetron 4 mg tablet,disintegrating 4 mg PO Q6H PRN (Reason: nausea and vomiting) Qty: 10 0RF No Action cyclobenzaprine 10 mg tablet 10 mg PO TID PRN (Reason: muscle spasm) Qty: 20 0RF ibuprofen 800 mg tablet 800 mg PO TID PRN (Reason: Pain (Scale Score 1-3)) acetaminophen-codeine 300-30 mg tablet 1 tablet PO BID PRN (Reason: Pain (Scale Score 4-6)) methadone 40 mg Tablet,Soluble 95 mg PO DAILY Rx Instructions: Verified dose with Isabel at [facility], patient would start taking 95mg daily 05/10/24 rkodtwfuhp-dxzgkjhylqvsh-nvra 50-325-40 mg tablet 1 tablet PO BID PRN (Reason: Migraine Headache) Biktarvy 50-200-25 mg tablet 1 tablet PO DAILY Rx Instructions: TAKE 1 TABLET BY MOUTH DAILY amoxicillin-pot clavulanate 875-125 mg tablet 1 tablet PO Q12H Qty: 5 0RF Rx Instructions: take a tablet tonight 05/10 and then take twice a day furosemide [Lasix] 20 mg tablet 20 mg PO .daily prn Qty: 14 0RF ondansetron 4 mg tablet,disintegrating 4 mg PO Q8H PRN (Reason: nausea and vomiting) Qty: 10 0RF ibuprofen 600 mg tablet 600 mg PO TID PRN (Reason: pain) Qty: 30 0RF acetaminophen 500 mg capsule 1,000 mg PO Q6H PRN (Reason: pain) Qty: 30 0RF fluoxetine 40 mg capsule 40 mg PO DAILY Qty: 30 0RF <Liana Carter MD - Last Filed: 06/06/25 06:56> Follow-up/Referrals: Rohit,MARITZA Stroud [Primary Care Provider] - 1 Week <Liana Carter MD - Last Filed: 06/06/25 06:56>
[2025-06-06 05:45] LABS: Hematocrit 40.3 % (37.0-47.0); Hemoglobin 14.3 g/dL (12.0-15.0); Immature Granulocyte Percent A 0.4 % (0-0.5); Lymphocytes Absolute Auto 1.24 K/mm3 (0.9-3.2); Mean Corpuscular HGB Conc 35.5 g/dl (32-36); Mean Corpuscular Hemoglobin 30.2 pg (26-34); Mean Corpuscular Volume 85.2 fl (80-100); Nucleated Red Blood Cells Absolute Auto 0.000 K/mm3 (0.0-0.012); Nucleated Red Blood Cells Perc 0.0 % (0.0-0.2); Platelet Count Result 322 k/mm3 (150-375); Red Blood Count 4.73 M/mm3 (4.2-5.4); White Blood Count 15.3 K/mm3 (4.5-10.0)
[2025-06-06 05:57] LABS: INR 1.1; Prothrombin Time 14.7 Seconds (11.1-14.7)
[2025-06-06 05:58] LABS: Partial Thromboplastin Time 26.9 Seconds (22.3-36.8)
--- OUTSIDE RECORDS SUMMARY | 2025-06-06 05:59 | XMS_ITS | Encounter Summary ---
Author Organization [facility] [employer] Address [address] [facility] [place] [address] Care Team Providers Care Cardiovascular Surgical Tech Name Role Phone Skyler Renae MD Primary Care Provider [phone] Unknown, Provider Primary Care Provider Unavaila ble Joye Bee Primary Care Provider + Joey Bee Primary Care Provider + Joey Bee Primary Care Provider + Joey Bee Unavailable [phone] Joey Bee Unavailable [phone] Reason for Visit * Reason Onset Date Comments Scheduling 12/06/2015 Left a message w ith patients mother, requesting patient to return call regarding a change of time for her 12/21/15 appointment. Encounter Details Date Type Department Care Team (Late st Contact Info) Description 12/06/2015 Telephone [facility] [address] [place] [id number] Sweetie Okeefe Scheduling (Left a message with [...] on filedocumented in this encounter Care Teams Cardiovascular Surgical Tech Relationship Specialty Start Date End Date Skyler Renae MD [address] [facility] [address] [place] [address] PCP - General Family Medicine 10/15/15 03/19/16 Unknown, Provider [address] [address] PCP - General 03/20/16 04/01/16 Joey Bee PA [address] [place] [phone] PCP - General Physician Shipyard Painting Supervisor 09/24/16 09/14/17 Joey Bee PA [address] [place] [phone] PCP - General Physician Shipyard Painting Supervisor 09/15/17 08/21/22 Joey Bee PA [address] [place] [phone] PCP - General 08/22/22 Joey Bee PA [address] [place] [phone] Physician Shipyard Painting Supervisor 08/22/22 Joey Bee PA [address] [place] [phone] Physician Shipyard Painting Supervisor 09/15/17 documented as of this encounter
--- OUTSIDE RECORDS SUMMARY | 2025-06-06 05:59 | XMS_ITS | Encounter Summary ---
Author Organization [facility] Healthcare Address [address] [place] [address] Care Team Providers Care Cranberry Bog Supervisor Name Role Phone Joey Bee Primary Care Provider + Encounter Details Date Type Department Care Team (Late st Contact Info) Description 05/04/2025 Results Follow-Up [facility] Cardiac Diagnostic Lab [address] [place] [address] Arina Reardon MD [address] [address] Lipid panel, Lipoprotein a (LPa), D-dimer, quantitative [...] on file Legal Sex Female 8:59 PM FRIT BURNER Gender Identity Not on file Sexual Orientation Not on file documented as of this encounter Plan of Treatment Not on file documented as of this encounter Visit Diagnoses Not on filedocumented in this encounter Care Teams Cranberry Bog Supervisor Relationship Specialty Start Date End Date Joey Bee PA [address] [place] [address] PCP - General Internal Medicine 01/05/25 documented as of this encounter
--- OUTSIDE RECORDS SUMMARY | 2025-06-06 05:59 | XMS_ITS | Clinical Summary ---
Author Organization [facility] [address] Address [address] [place] [address] Care Team Providers Care Authors Motivational Name Role Phone Joey Bee Primary Care [...] - 05/19/2025 11:59 PM CDT Hospital Encounter [facility] Cardiac Diagnostic Lab [address] [place] [phone] Labile blood pressure; Elevated blood pressure reading Discharge Disposition: Discharge to home or self care 05/09/2025 Telephone [facility] Vascular Surgery [address] [facility] Medical Office Building [address] [place] [phone] Yuri Bermudez DO New Referral 05/04/2025 Results Follow-Up [facility] Cardiac Diagnostic Lab [address] [facility] [place] [address] Arina Reardon MD Lipid panel, Lipoprotein a (LPa), D-dimer, quantitative 05/02/2025 12:25 PM CDT Lab [facility] [place] [phone] Family history of heart disease; May-Thurner syndrome 05/02/2025 11:00 AM CDT Office Visit [facility] Cardiology [address] [facility] 8th [place] [address] [place] [address] Arina Reardon MD 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 This test has been modified from the rating clerk's instructions. Its performance characteristics were determined by [facility] in a manner consistent with CLIA requirements. This test has not been cleared or approved by the U.S. Food and Drug Administration. Test Performed by: [facility] - [address] [address] Merchant Tailor: Lory Gauthier Ph.D.; CLIA# [id number] Blood 05/02/2025 12:2 4 PM CDT 05/02/2025 1:46 PM CDT Arina Reardon MD LAB BLOOD ORDERABLES Final Result Performing Organization Address [facility] de Phone Number SURAJ MOSQUERA [facility] [place] [address] Garcia ref Lab * D-dimer, quantitative (05/02/2025 [...] BLOOD ORDERABLES Final Result Performing Organization Address [facility] de Phone Number SURAJ MOSQUERA [facility] [place] [address] * (ABNORMAL) Lipid panel (05/02/2025 12:24 PM [...] revised on 2018. Triglycerides 131 <=149 mg/dL [facility] Comment: Interpretive Data Ages < or [...] revised on 2018. HDL 37(L) >=40 mg/dL [facility] Comment: Interpretive Data Ages < or [...] on 2018. LDL, calculated 135(H) <=129 mg/dL [facility] Comment: Interpretive Data Ages < or [...] revised on 2024. Non-HDL Cholesterol 159 mg/dL [facility] Comment: Interpretive Data Ages < or [...] last revised on 2018. Chol/HDL ratio 5 [facility] Blood 05/02/2025 12:2 4 PM CDT 05/02/2025 12:59 PM CDT us Arina Reardon MD LAB BLOOD ORDERABLES Final Result [facility] [place] [address] * Urinalysis reflex to microscopic and culture Urine, clean voided (06/26/2024 7:00 PM CDT) Color, ur Yellow Yellow Clarity, ur Clear Clear [facility] Specific gravity, ur 1.021 1.003 - 1.030 [facility] pH, urine 6.5 [facility] Comment: Interpretive Data U rine pH is affected by diet, medications, systemic acid-base disturbances, and renal tubular function. pH may affect urinary stone formation. For example, urine pH below 6.0 may help reduce the tendency for calcium phosphate stones and pH greater than 6.0 may reduce the tendency for uric acid stone formation. Source: [employer] Current Interpretive Data was last revised on 2017 Protein, ur ql Negative Negative [facility] Glucose, ur ql Negative Negative [facility] Ketones, ur Negative Negative [facility] Bilirubin, ur Negative Negative [facility] Blood, ur Negative Negative [facility] Urobilinogen, ur <2.0 <2.0 mg/dL [facility] Nitrite, ur Negative Negative [facility] Leukocyte esterase, ur Negative Negative [facility] UA reflex comment Reflex conditions for microscopic UA and culture not met. [facility] Urine, clean voided 06/26/2024 7:00 PM CDT 06/26/2024 7:09 PM CDT us Johnnie Sibley MD LAB MICROBIOLOGY - GENER AL ORDERABLES Final Result [facility] [place] [address] from Last 3 Months or Most Recently Relevant to Health Maintenance Insurance [employer] Care Teams Authors Motivational Relationship Specialty Start Date End Date Joey Bee PA [address] [place] [address] PCP - General Internal Medicine 01/05/25
--- OUTSIDE RECORDS SUMMARY | 2025-06-06 05:59 | XMS_ITS | Clinical Summary ---
Author Organization [facility] Address [address] [place] [address] Care Team Providers Care Corner Block Cutter Name Role Phone Joey Bee Primary Care Provider + Joey Bee Unavailable [phone] Joey Bee Unavailable [phone] Source Comments [facility] Affiliates and Associated Physician Practices is amultiple site organization consisting of ambulatory clinics and hospital sitesin [place], [place], [place] and [place]. This disclosure is being madepursuant to the Care Everywhere program and may not contain all information available regarding this patient. Last updated 18.[facility] Allergies Active Allergy Reactions Criticality Noted Date [...] Dye Gastroenterology Dr. Bakari Saini Infectious Disease [facility] 07/2019 Problem Noted Date Diagnosed Date Abnormal [...] RNA QUANTITATIVE (02/12/2022 9:45 AM CDT) Pathologist [facility] Hepatitis C Virus RNA, Quantitative Real Time [...] of this assay have been determined by [facility]. The modifications have not been cleared or approved by the FDA. This assay has been validated pursuant to the CLIA regulations and is used for clinical purposes. For more information on this test, go to: http://education.FSI/faq/BPS97r3 (This link is being provided for informational/ educational purposes only.) This assay is intended for use as an aid in the diagnosis of HCV infection and the management of HCV infected patients undergoing anti-viral therapy. Test Performed at: [facility] [address] [address] NAYAN BRUNSON DO,MPH 02/12/2022 9:45 AM CDT 02/12/2022 11:38 PM CDT Haydee Hernandez MD LAB - CHEMISTRY ORDERABLES Final Result [facility] [address] [place] [address] from Last 3 Months or Most Recently Relevant to Health Maintenance Insurance Advance Directives * Full Code (Latest Code Status on File) Date Activated Date Inactivated Comments 01/27/2019 4:29 AM 01/28/2019 10:58 AM * Full Code Date Activated Date Inactivated Comments 09/12/2017 7:01 PM 09/15/2017 12:43 PM * Full Code Date Activated Date Inactivated Comments 04/30/2016 3:24 AM 05/03/2016 12:58 AM Care Teams Corner Block Cutter Relationship Specialty Start Date End Date Joey Bee PA [address] [place] [address] PCP - General 08/22/22 Joey Bee PA [address] [place] [address] Physician Yarn Man 08/22/22 Joey Bee PA [address] [place] [address] Physician Yarn Man 09/15/17
--- OUTSIDE RECORDS SUMMARY | 2025-06-06 05:59 | XMS_ITS | Referral Summary ---
Author Organization [facility] [address] Address [address] [place] [address] Care Team Providers Care Um Nurse Name Role Phone Joey Bee Primary Care Provider + Encounters Date Type Department Care Team Description 05/19/2025 11:30 AM CDT - 05/19/2025 11:59 PM CDT Hospital Encounter [facility] Cardiac Diagnostic Lab [address] [place] [address] 8th [place] [address] Labile blood pressure; Elevated blood pressure reading Discharge Disposition: Discharge to home or self care 05/09/2025 Telephone [facility] Vascular Surgery [address] [place] [address] Medical Office Building [address] [place] [address] Yuri Bermudez, New Referral 05/04/2025 Results Follow-Up [facility] Cardiac Diagnostic Lab [address] [place] [address] Arina Reardon MD Lipid panel, Lipoprotein a (LPa), D-dimer, quantitative 05/02/2025 12:25 PM CDT Lab [facility] [address] [place] [phone] Family history of heart disease; May-Thurner syndrome 05/02/2025 11:00 AM CDT Office Visit [facility] Cardiology [address] [place] [address] Advanced Medicine 8th [place] [address] [place] [address] Arina Reardon MD 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 This test has been modified from the skimmer scoop operator's instructions. Its performance characteristics were determined by [facility] in a manner consistent with CLIA requirements. This test has not been cleared or approved by the U.S. Food and Drug Administration. Test Performed by: [facility] - [address] [address] Collection Systems Worker: Lory Gauthier Ph.D.; CLIA# [id number] Blood 05/02/2025 12:2 4 PM CDT 05/02/2025 1:46 PM CDT Arina Reardon MD LAB BLOOD ORDERABLES Final Result Performing Organization Address City/[facility] Co de Phone Number [facility] [place] [address] Garcia ref Lab * D-dimer, quantitative (05/02/2025 [...] BLOOD ORDERABLES Final Result Performing Organization Address [facility] Co de Phone Number [facility] [place] [address] * (ABNORMAL) Lipid panel (05/02/2025 12:24 PM [...] revised on 2018. Triglycerides 131 <=149 mg/dL [facility] Comment: Interpretive Data Ages < or = [...] revised on 2018. HDL 37(L) >=40 mg/dL [facility] Comment: Interpretive Data Ages < or = [...] on 2018. LDL, calculated 135(H) <=129 mg/dL [facility] Comment: Interpretive Data Ages < or = [...] on 2024. Non-HDL Cholesterol 159 mg/dL [facility] Comment: Interpretive Data Ages < or = [...] last revised on 2018. Chol/HDL ratio 5 [facility] Blood 05/02/2025 12:2 4 PM CDT 05/02/2025 12:59 PM CDT Arina Reardon MD LAB BLOOD ORDERABLES Final Result [facility] [place] [address] * Urinalysis reflex to microscopic and culture Urine, clean voided (06/26/2024 7:00 PM CDT) Color, ur Yellow Yellow Clarity, ur Clear Clear [facility] Specific gravity, ur 1.021 1.003 - 1.030 [facility] pH, urine 6.5 [facility] Comment: Interpretive Data U rine pH is affected by diet, medications, systemic acid-base disturbances, and renal tubular function. pH may affect urinary stone formation. For example, urine pH below 6.0 may help reduce the tendency for calcium phosphate stones and pH greater than 6.0 may reduce the tendency for uric acid stone formation. Source: [facility] Current Interpretive Data was last revised [...] microscopic UA and culture not met. [facility] Urine, clean voided 06/26/2024 7:00 PM CDT 06/26/2024 7:09 PM CDT Johnnie Sibley MD LAB MICROBIOLOGY - [facility] AL ORDERABLES Final Result [facility] [place] [address] from Last 3 Months or Most Recently Relevant to Health [place] [address] [employer]PA Care Teams Um Nurse Relationship Specialty Start Date End Date Joey Bee PA [address] [place] [address] PCP - General Internal Medicine 01/05/25
[2025-06-06] MEDS: LORazepam INJ (*CRX) 2 MG/ML VIAL IV PUSH (06:01)
[2025-06-06] MEDS: ONDANSETRON INJ 4 MG/2 ML VIAL IV PUSH (06:01)
[2025-06-06 06:15] LABS: Alanine Aminotransferase 40 U/L (6-35); Albumin Level 4.7 g/dL (3.5-5.1); Alkaline Phosphatase 119 U/L (38-126); Anion Gap 17 mmol/L (4-12); Aspartate Amino Transferase 43 U/L (14-36); Bilirubin,Total 0.5 mg/dL (0.2-1.3); Blood Urea Nitrogen 9 mg/dL (7-17); Calcium 9.8 mg/dL (8.4-10.2); Carbon Dioxide 20 mmol/L (22-30); Chloride 109 mmol/L (98-107); Estimated CRCL calculation 105 ml/min; Estimated Glomerular Filt Rate > 60; Glucose 161 mg/dL (65-110); Lipase 40 U/L (23-300); Potassium 3.5 mmol/L (3.4-5.0); Sodium 146 mmol/L (137-145); Total Protein 8.5 g/dL (6.3-8.2)
[2025-06-06 06:21] LABS: Troponin I < 0.012 ng/mL (0.000-0.034)
[2025-06-06] MEDS: LACTATED RINGERS 1,000 ML 999 ML IV CONT (07:07)
[2025-06-06] MEDS: PHENobarbitaL sodium (*CRX) 130 MG/ML VIAL 260 MG IV PUSH (07:07)
[2025-06-06] MEDS: PROMETHAZINE HCL 25 MG/ML AMPUL 12.5 MG IV PUSH (07:29)
--- NOTE | 2025-06-06 08:13 | ECG_ITS ---
Test Date: 2025-06-06 08:28:54 Measurements Intervals [place] Rate: 89 P: 68 WI: 127 QRS: 66 QRSD: 90 T: 57 QT: 389 QTc: 474 Interpretive Statements SINUS ARRHYTHMIA Electronically Signed On 06-06-2025 17:24:32 CDT by Quinten Coughlin D.O
[2025-06-06 09:03] LABS: Troponin I < 0.012 ng/mL (0.000-0.034)
[2025-06-06] MEDS: KETOROLAC 30 MG/ML VIAL (*BKC) IV PUSH (09:42)
[2025-06-06 09:59] LABS: Cannabinoid Screen Urine Negative (Negative)
--- NOTE | 2025-06-06 10:35 | PC.NURSE ---
pt fluids infused slowly due to pt bending her arm and occluding the IV. this nurse educated pt on keeping her arm straight but pt was not following the education
--- NOTE | 2025-06-06 12:45 | PCCCNOTE ---
1015- Called to the ED to help with placement for drug rehab. Spoke with pt. who is refusing to go any where for help. She said she has Suboxone at home and would take that. I asked pt. if she wanted any help for recovering and she declined. Dr. Romo notified.
== END 2025-06-06 10:37 | disposition home or self-care (01) ==
PROVIDERS: Emergency Medicine; Emergency Provider Emergency Medicine; PCP Physician Assistant
DX: F11.23 Opioid dependence with withdrawal (principal); F17.210 Nicotine dependence, cigarettes, uncomplicated; B20 Human immunodeficiency virus [HIV] disease
CPT/HCPCS: 36415; 71045; 80053; 80307; 83690; 84484; 85025; 85610; 85730; 93005; 96361; 96374; 96375; 99284; J1885; J2060; J2405; J2550; J2560; J7120